=== PATIENT | male | born 1955 | race Caucasian/White ===

== ENCOUNTER 2024-11-03 07:20 | Day surgery (SDC) | payer MEDICARE, OTHER, SELFPAY ==
[2024-11-03 07:32] VITALS: BP 141/78; PULSE 77; TEMP 36.2; O2SAT 98; BMI 31.2
[2024-11-03] MEDS: LIDOCAINE 2% JELLY 10 ML UR (08:09)
[2024-11-03 08:11] VITALS: BP 143/75; PULSE 76; O2SAT 98
[2024-11-03 08:12] VITALS: BP 142/74; PULSE 74; O2SAT 97
--- NOTE | 2024-11-03 08:25 | PM.URSON ---
Urology Surgery Operative Note Operative Note Procedure Date: 11/03/24 Time Out Performed: yes Pre-op Diagnosis: Urinary frequency and urgency Post-op Diagnosis: same as pre-op Procedures performed: 1. Urethral dilation from 18 [place] to 26 [place] #2. Cystoscopy. 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 Specimens: None Drains: None Indications for Procedures: This gentleman has a history of prostate cancer for which he had a radical prostatectomy done several years ago. He has been experiencing urinary frequency and urgency. He now presents for cystoscopy. He has signed an informed consent after risks were explained. Detailed description of Procedure: The patient was kept on the guraustin bed and brought into the endoscopy suite. He was in the supine position. Timeout was done by all parties in the room. Genitalia were sterilely prepped and draped in the usual fashion. 2% lidocaine gel was passed per urethra. I started by attempting to pass a flexible cystoscope per urethra but was unable due to meatal stenosis. After obtaining verbal consent I then used Rayne sounds and dilated him from 18 [place] up to 26 [place]. I then could easily pass the flexible scope per urethra. The rest of the urethra was entirely normal. The anastomotic area was open. There was no prostate. Careful panendoscopy in the bladder revealed no evidence of any tumors concerning for cancer. There was moderate trabeculation. There were cystitis cystica lesions on the base of the bladder. The scope was retroflexed and no new findings were noted. The scope was then removed. He was then discharged to home. Plan: He will take doxycycline 100 mg daily for 2 months. If his symptoms persist after 3 months he will call our office.
== END 2024-11-03 08:37 | disposition home or self-care (01) ==
LOC: SURGOUT 07:25
PROVIDERS: Visit Provider Urology
PROC: (CPT 52281; principal; 2024-11-03 08:00)
DX: N35.911 Unspecified urethral stricture, male, meatal (principal); C61 Malignant neoplasm of prostate; R32 Unspecified urinary incontinence; I25.10 Atherosclerotic heart disease of native coronary artery without angina pectoris; I10 Essential (primary) hypertension; E03.9 Hypothyroidism, unspecified; E11.9 Type 2 diabetes mellitus without complications; I25.2 Old myocardial infarction; R35.0 Frequency of micturition; R39.15 Urgency of urination; Z90.79 Acquired absence of other genital organ(s); N30.80 Other cystitis without hematuria; Z79.84 Long term (current) use of oral hypoglycemic drugs
CPT/HCPCS: 52281

== ENCOUNTER 2025-04-08 09:02 | Emergency (ER) | payer MEDICARE, OTHER, SELFPAY ==
[2025-04-08 09:09] VITALS: BP 140/87; PULSE 82; TEMP 36.8; O2SAT 97; BMI 29.0
--- OUTSIDE RECORDS SUMMARY | 2025-04-08 09:24 | XMS_ITS | CCD ---
Author Organization [facility] [place] [facility] Care Team Providers Care Fagoter Name Role Phone JEFFRY BACON Unavailable Unavailable ROBYN BRAGG Unavailable Unavailable NIRALI BACONZA Sunday Referring Unavailable ROBYN BRAGG Primary Care Unavailable JEFFRY BACON Admitting Unavailable JEFFRY BACON Attending Unavailable ROBYN BRAGG Primary Care Unavailable Robyn Bragg Primary Care Provider [phone] Yemi ARIAS, Robyn Bahena Primary Care Provider [phone] Yemi ARIAS, Robyn Bahena Primary Care Provider ROBYN BRAGG Primary Care Unavailable LEVI EPREA Admitting Unavailable ROBYN BRAGG Attending Unavailable Shaggy Irene Attending Robyn Gardner Primary Care Unavailable Unavailable Primary Care Provider Unavailkaye Bragg MD, Robyn Primary Care Provider [phone] ANNEMARIE GUERRA Referring Unavailable TEMO, RILEY Attending Unavailable TEMO, RILEY Admitting Unavailable TEMO, RILEY Attending Unavailable TEMO, RILEY Attending Unavailable TEMO, RILEY Admitting Unavailable ROBYN BRAGG Primary Care Physician [phone] Delroy HOLDER Admitting Unavailable Delroy HOLDER R Attending Unavailable Delroy HOLDER R Attending Unavailable HOLDERDelroy R Attending Unavailable ROBYN BRAGG Referring Unavailable Delroy HOLDER Attending Unavailable HOLDERDelroy R Attending Unavailable ELVIS NEAL Attending Unavailable HOLDERDelroy R Attending Unavailable HOLDERDelroy R Attending Unavailable HOLDERDelroy R Referring Unavailable Allergies Allergy Classification Reported Allergen(s) Allergy Type Date of Onset Reaction(s) Facility (12 sources) Seasonal allergy; Translations: [Seasonal] Propensity to adverse reactions to substance 8 Other (See Comments), Watery eye (finding), Nasal congestion (finding) [facility] [place], [place] (1 source) No Known Medication Allergies; Translations: [No Known Medication Allergies] Propensity to adverse reactions to drug (disorder) [facility] Repository Medications Current Medications Medication Drug Class(es) Dates Sig (Normalized) Sig (Original) amLODIPine 2.5 mg oral tablet (8 sources) Dihydropyridine Calcium Channel Tai Start: 06-30-2024 amLODIPine 2.5 mg Tab = 1 tab(s), Oral, Supper, Refills(s) 0 Start Date: 06/30/24 Status: Ordered Repeat number: 1 Start: 08-28-2022 amLODIPine (NO RVASC) tablet 5 mg Start: 03-11-2022 take 1 tablet by ashly th in the morning amLODIPine (NORVASC) 5 MG tablet Take 1 tablet by mouth in the morning. 90 tablet 3 03/11/2022 Active Start: 12-24-2020 take 1 tablet by ashly th once daily amLODIPine (NORVASC) 5 MG tablet Take 1 tablet by mouth daily 90 tablet 3 12/24/2020 Active aspirin 81 mg delayed release oral tablet (9 sources) Platelet Aggregation Inhibitor, Nonsteroidal Anti-inflammatory Drug Start: 06-30-2024 take 1 tablet by mouth once daily at bedtime aspirin 81 mg Oral EC Tab = 1 tab(s), Oral, Once a day (at bedtime), Refills(s) 0 Start Date: 06/30/24 Status: Ordered Repeat number: 1 Start: 08-27-2022 aspirin EC tab let 81 mg take 1 tablet by mouth at bedtim e aspirin 81 MG tablet Take 81 mg by mouth at bedtime LAST DOSE 01/20/2018 0 Active aspirin/placebo, M-1657, 81 mg tablet (1 source) take 1 tablet by mouth once daily aspirin/placebo, M-1657, 81 mg tablet Take 1 tablet by mouth Every night. 0 Active atorvastatin 20 mg oral tablet (11 sources) HMG-CoA Reductase Inhibitor Start: 06-30-20 take 1 tablet by mouth once daily atorvastatin 20 mg Tab = 1 tab(s), Oral, Daily, Refills(s) 0 Start Date: 06/30/24 Status: Ordered Repeat number: 1 Start: 03-25-2020 atorvastatin ( LIPITOR) tablet 20 mg cephalexin 500 mg oral capsule (2 sources) Cephalosporin Antibacterial Start: 10-06-2024 End: 10-13-2024 take 1 capsule by mouth every twelve hours Keflex 500 mg Cap 500 mg = 1 cap(s), Oral, q12hr, X 7 day(s), # 14 cap(s), Refills(s) 0, [id number], cm, 10/06/24 10:32:00 EST, Height/Length Dosing, 97.7, kg, 10/06/24 10:32:00 EST, Weight Dosing Start Date: 10/06/24 Stop Date: 10/13/24 Status: Ordered fosfomycin 3000 mg powder for oral solution (1 source) Start: 10-08-2024 fosfomycin 3 g oral granule for reconstitution 3 gm = 1 packet(s), Oral, Once, Dissolve in water before taking, # 1 packet(s), Refills(s) 0, [id number] 180, cm, 10/06/24 10:32:00 EST, Height/Length Dosing, 97.7, kg, 10/06/24 10:32:00 EST, Weight Dosing Start Date: 10/08/24 Status: Ordered hydroCHLOROthiazide 12.5 mg / losartan potassium 100 mg oral tablet (11 sources) Thiazide Diuretic, Angiotensin 2 Receptor Tai Start: 06-30-2024 take 1.5 tablets by mouth once daily hydrochlorothiazid e-losartan 12.5 mg-100 mg oral tablet 1.5 tab(s), Oral, Daily, Refill(s) 0 Start Date: 06/30/24 Status: Ordered Repeat number: 1 Start: 08-27-2022 losartan-hydro CHLOROthiazide (HYZAAR) 100-12.5 MG per tablet 1 tablet Start: 06-19-2019 take 1 tablet by ashly once daily losartan-hydroCHLOROthiazide (HYZAAR) 100-12.5 MG per tablet Take 1 tablet by mouth daily 90 tablet 3 07/11/2022 Active levothyroxine sodium 0.1 mg oral tablet (11 sources) l-Thyroxine Start: 06-30-2024 take 1 tablet by mouth once daily levothyroxine 100 mcg (0.1 mg) Tab = 1 tab(s), Oral, Daily, Refills(s) 0 Start Date: 06/30/24 Status: Ordered Repeat number: 1 Start: 12-31-2019 take 50 ug by mouth once daily 50 mcg, Oral, DAILY, First dose on 08/27/22 at 0700, Until Discontinued Tube feeding (TF) interaction, obtain physician order to manage, recommend holding TF for 30 minutes before and after dose. metFORMIN hydrochloride 500 mg oral tablet (11 sources) Biguanide Start: 06-30-2024 take 1 tablet by mouth once daily metformin 500 mg ER Tab = 1 tab(s), Oral, Daily, Refills(s) 0 Start Date: 06/30/24 Status: Ordered Repeat number: 1 Start: 04-20-2023 take 1 tablet by ashly th every twenty-four hours metFORMIN-XR 500 MG Tab SR 24 HR Take 1 tablet by mouth. 0 04/20/2023 Active Start: 04-19-2022 take 500 mg by mouth once daily at breakfast 500 mg, Oral, DAILY WITH BREAKFAST, First dose on 08/27/22 at 0800, Until Discontinued Do not crush or break. Start: 04-27-2020 take 1 tablet by ashly th once daily at breakfast metFORMIN (GLUCOPHAGE-XR) 500 MG extended release tablet Take 1 tablet by mouth daily (with breakfast) 90 tablet 3 04/27/2020 Active 24 hr mirabegron 50 mg extended release oral tablet (1 source) beta3-Adrenergic Agonist Start: 06-30-2024 take 1 tablet by mouth once daily mirabegron 50 mg oral tablet, extended release 50 mg = 1 tab(s), Oral, Daily, # 30 tab(s), Refills(s) 11, Pharmacy: [id number], 180, cm, 06/30/24 13:43:00 EST, Height/Length Dosing, 97.7, kg, 06/30/24 13:43:00 EST, Weight Dosing Start Date: 06/30/24 Status: Ordered ondansetron (ZOFRAN-ODT) disintegrating tablet 4 mg (1 source) Start: 08-27-2022 ondansetron (ZOFRAN-ODT) disintegrating tablet 4 mg 24 hr oxybutynin chloride 10 mg extended release oral tablet (2 sources) Cholinergic Muscarinic Antagonist Start: 07-19-2020 take 1 tablet by mouth once daily oxybutynin (DITROPAN-XL) 10 MG extended release tablet Take 1 tablet by mouth daily 90 tablet 2 07/19/2020 Active Start: 03-29-2020 take 1 tablet by ashly th once daily oxybutynin (DITROPAN XL) 10 MG extended release tablet Take 1 tablet by mouth daily 30 tablet 3 03/29/2020 Active sodium fluoride 0.011 mg/mg toothpaste (1 source) Start: 04-24-2022 SF 5000 PLUS 1 .1 % CREA USE DIRECTED 0 04/24/2022 Active solifenacin succinate 10 mg oral tablet (4 sources) Cholinergic Muscarinic Antagonist Start: 10-06-2024 take 1 tablet by mouth once daily Vesicare 10 mg Tab 10 mg = 1 tab(s), Oral, Daily, # 30 tab(s), Refills(s) 11, Pharmacy: [facility]/pharmacy #[id number], 180, cm, 10/06/24 10:32:00 EST, Height/Length Dosing, 97.7, kg, 10/06/24 10:32:00 EST, Weight Dosing Start Date: 10/06/24 Status: Ordered Quantity: 30.0 Unit: tab(s) Repeat number: 12 Indications: Incontinence without sensory awareness; ticagrelor 60 mg oral tablet (11 sources) Start: 06-30-2024 take 1 tablet by mouth twice daily ticagrelor 60 mg oral tablet = 1 tab(s), Oral, BID, Refills(s) 0 Start Date: 06/30/24 Status: Ordered Repeat number: 1 Start: 02-26-2023 take 1 tablet by ashly th twice daily Ticagrelor 60 MG tablet Take 1 tablet by mouth 2 times daily. 0 02/26/2023 Active Start: 06-01-2022 take 60 mg by mouth twice aashish y 60 mg, Oral, 2 TIMES DAILY, First dose on 08/27/22 at 0900, Until Discontinued ANITIPLATELET! Patient supply Start: 01-12-2021 take 1 tablet by ashly th twice daily BRILINTA 60 MG TABS tablet Take 1 tablet by mouth twice daily 180 tablet 3 01/12/2021 Active Start: 01-19-2020 take 1 tablet by ashly th twice daily ticagrelor (BRILINTA) 60 MG TABS tablet Take 1 tablet by mouth 2 times daily 180 tablet 3 01/19/2020 Active Completed/Discontinued Medications Medication Drug Class(es) Dates Sig (Normalized) Sig (Original) acetaminophen 500 mg oral tablet (3 sources) Start: 07-23-2023 End: 07-23-2023 take 500-1000 mg by mouth every six hours as needed 500-1,000 mg, Oral, EVERY 6 HOURS NEEDED, Starting on Sun07/23/23 at 0730, Until Sun07/23/23 at 1012, Pain, Post-op/Post-Proc Start: 07-16-2023 End: 07-16-2023 take 500-1000 mg by mouth every six hours as needed 500-1,000 mg, Oral, EVERY 6 HOURS NEEDED, Starting on Sun07/16/23 at 0830, Until Sun07/16/23 at 1548, Pain, Post-op/Post-Proc Start: 08-27-2022 acetaminophen (TYLENOL) tablet 650 mg apraclonidine 10 mg/ml ophthalmic solution (1 source) alpha-Adrenergic Agonist Start: 07-16-2023 End: 07-16-2023 take 1 dose into the eye(s) once 1 drop, Left Eye, ONCE, 1 dose, On Sun07/16/23 at 0830 Administer post-Procedure, while in operating room Intra-op/Intra-Proc 20 ml bupivacaine hydrochloride 7.5 mg/ml injection (2 sources) Amide Local Anesthetic Start: 07-23-2023 End: 07-23-2023 1 drop, Right Eye, EVERY 5 MINUTES, 3 doses, First dose on Sun07/23/23 at 0630, Last dose on Sun07/23/23 at 0640 Within 15 minutes of surgery Pre-op/Pre-Proc Start: 07-16-2023 End: 07-16-2023 1 drop, Left Eye, EVERY 5 NC NUTES, 3 doses, First dose on Sun07/16/23 at 0800, Last dose on Sun07/16/23 at 0810 Within 15 minutes of surgery Pre-op/Pre-Proc cefazolin intraocular/intracameral 1 mg/0.1 mL (1 source) Start: 07-16-2023 End: 07-16-2023 take 0.1 mL into the eye(s) once 0.1 mL, Left Eye Intraocular, ONCE, 1 dose, On Sun07/16/23 at 0830, Intra-op/Intra-Proc ciprofloxacin 500 mg oral tablet (3 sources) Quinolone Antimicrobial Start: 10-06-2024 take 1 tablet by mouth once daily Cipro 500 mg Tab 500 mg = 1 tab(s), Oral, Daily, take one tab day before procedure and one tab after procedure, # 2 tab(s), Refills(s) 0, Pharmacy: [facility]/pharmacy #[id number], 180, cm, 10/06/24 10:32:00 EST, Height/Length Dosing, 97.7, kg, 10/06/24 10:32:00 EST, Weight Dosing Start Date: 10/06/24 Status: Ordered 0.4 ml enoxaparin sodium 100 mg/ml prefilled syringe (1 source) Low Molecular Weight Heparin Start: 08-27-2022 inject 40 mg by subcutaneous injection once daily 40 mg, SubCUTAneous, DAILY, First dose on Sun08/27/22 at 0900, Until Discontinued Indication of Use: Prophylaxis-DVT/PE famotidine 20 mg oral tablet (1 source) Histamine-2 Receptor Antagonist Start: 08-27-2022 take 20 mg by mouth twice daily 20 mg, Oral, 2 TIMES DAILY, First dose on Sun08/27/22 at 0900, Until Discontinued ketorolac tromethamine 5 mg/ml ophthalmic solution (1 source) Nonsteroidal Anti-inflammato ry Drug, Cyclooxygenase Inhibitor Start: 07-16-2023 End: 07-16-2023 take 1 dose into the eye(s) once daily 1 drop, Left Eye, ONCE, 1 dose, On Sun07/16/23 at 0830 Administer post-Procedure, while in operating room Instructio ns for home use: ONE drop in operative eye, two times a day while awake Intra-op/Intra-Proc 10 ml lidocaine hydrochloride 10 mg/ml injection (1 source) Antiarrhythmic, Amide Local Anesthetic Start: 07-16-2023 End: 07-16-2023 take 1 dose into the eye(s) once 1 mL, Left Eye Intracameral, ONCE, 1 dose, On Sun07/16/23 at 0830, Intra-op/Intra-Proc ofloxacin 3 mg/ml ophthalmic solution (2 sources) Quinolone Antimicrobial Start: 07-23-2023 End: 07-23-2023 take 1 dose into the eye(s) once daily 1 drop, Right Eye, ONCE, 1 dose, On 07/23/23 at 0730 Administer post-Procedure, while in operating room. Instructi ons for home use: ONE drop in operative eye, four times a day while awake. Intra-op/Intra-Proc Start: 07-16-2023 End: 07-16-2023 take 1 dose into the eye(s) once daily 1 drop, Left Eye, ONCE, 1 dose, On 07/16/23 at 0830 Administer post-Procedure, while in operating room. Instructions for home use: ONE drop in operative eye, four times a day while awake. Intra-op/Intra-Proc polyethylene glycol 3350 [id number] mg powder for oral solution (1 source) Osmotic Laxative Start: 08-27-2022 17 g, Oral, D AILY PRN, Starting on 08/27/22 at 0306, Until Discontinued, Constipation First line therapy for constipation prednisoLONE acetate 10 mg/ml ophthalmic suspension (1 source) Corticosteroid Start: 07-16-2023 End: 07-16-2023 take 1 dose into the eye(s) once daily 1 drop, Left Eye, ONCE, 1 dose, On 07/16/23 at 0830 Administer post-Procedure, while in operating room Instructi ons for home use: ONE drop in operative eye, four times a day while awake Intra-op/Intra-Proc promethazine hydrochloride 12.5 mg oral tablet (4 sources) Phenothiazine Start: 07-23-2023 End: 07-23-2023 take 1 tablet by mouth every six hours as needed 25 mg, Oral, EVERY 6 HOURS NEEDED, Starting on 07/23/23 at 0730, Until Sun07/23/23 at 1012, severe nausea, Post-op/Post-Proc Start: 07-23-2023 End: 07-23-2023 take 1 tablet by mouth every six hours as needed 12.5 mg, Oral, EVERY 6 HOURS NEEDED, Starting on 07/23/23 at 0730, Until 07/23/23 at 1012, Other, mild nausea, moderate nausea, Post-op/Post-Proc Start: 07-16-2023 End: 07-16-2023 take 1 tablet by mouth every six hours as needed 25 mg, Oral, EVERY 6 HOURS NEEDED, Starting on Sun07/16/23 at 0830, Until Sun07/16/23 at 1548, severe nausea, Post-op/Post-Proc Start: 07-16-2023 End: 07-16-2023 take 1 tablet by mouth every six hours as needed 12.5 mg, Oral, EVERY 6 HOURS NEEDED, Starting on Sun07/16/23 at 0830, Until Sun07/16/23 at 1548, Other, mild nausea, moderate nausea., Post-op/Post-Proc 1000 ml sodium chloride 9 mg/ml injection (7 sources) Start: 07-23-2023 End: 07-23-2023 Intravenous, at 20 mL/hr, CONTINUOUS, Starting on Sun07/23/23 at 0630, Until Sun07/23/23 at 1012 To KVO Pre-op/Pre-Proc Start: 07-16-2023 End: 07-16-2023 Intravenous, at 20 mL/hr, CONTINUOUS, Starting on Sun07/16/23 at 0800, Until Sun07/16/23 at 1548 To KVO Pre-op/Pre-Proc Start: 08-27-2022 10 mL, IntraVE Nous, EVERY 12 HOURS SCHEDULED (2 times per day), First dose on Sun08/27/22 at 0900, Until Discontinued Start: 08-27-2022 IntraVENous, a t 75 mL/hr, CONTINUOUS, Starting on Sun08/27/22 at 0330 Start: 08-27-2022 IntraVENous, a t 5-250 mL/hr, PRN, if patient receiving piggyback infusions and maintenance fluids are not ordered OR KVO fluids to protect IV site / prevent frequent line interruptions/ long duration, Starting on Sun08/27/22 at 0306 For piggyback infusion, administer at same rate as piggyback for a total of 25 mL. Enter 25 mL into dose field and piggyback rate into rate field of order. If piggyback is infusing at a rate less than 100 mL/hr, enter 25 mL into dose field and 100 mL/hr into rate field of order. For KVO fluids, enter rate of 20 mL/hr or less into rate field of order. Start: 08-27-2022 take 10 mL intraveno usly once as needed 10 mL, IntraVENous, PRN, Starting on Sun08/27/22 at 0306, Until Discontinued, Line Care, After every IV line use Start: 08-26-2022 End: 08-27-2022 0.9 % sodium chloride bolus tropicamide-1% cyclopentolate-1% phenylephrine-2.5% ketorolac 0.4% proparacaine 0.1% topical ophthalmic soln 0.1 mL (2 sources) Start: 07-23-2023 End: 07-23-2023 take 0.1 mL into the eye(s) once 0.1 mL (2 drop), Right Eye, ONCE, 1 dose, On Sun07/23/23 at 0630 Within one hour of surgery. Pre-op/Pre-Proc Start: 07-16-2023 End: 07-16-2023 take 0.1 mL into the eye(s) once 0.1 mL (2 drop), Left Eye, ONCE, 1 dose, On Sun07/16/23 at 0800 Within one hour of surgery. Pre-op/Pre-Proc Problems Active Problems Problem Classification Problem Date Documented Date Episodic/Chronic Acute myocardial infarction (5 sources) Myocardial infarction 06-30-2024 Chronic Cancer of prostate (13 sources) Malignant neoplasm of prostate; Translations: [Malignant tumor of prostate] Onset: 09-26-2017 01-29-2018 Chronic Cardiac dysrhythmias (1 source) Palpitations; Translations: [Palpitations] Episodic Cataract (6 sources) Age-related nuclear cataract of right eye; Translations: [Age-related nuclear cataract, right eye] Onset: 07-16-2023 07-03-2023 Chronic Coronary atherosclerosis and other heart disease (8 sources) Coronary arteriosclerosis; Translations: [Atherosclerotic heart disease of [place] coronary artery without angina pectoris] Onset: 02-18-2018 02-18-2018 Chronic Diabetes mellitus without complication (8 sources) Type 2 diabetes mellitus without complication; Translations: [Type 2 diabetes mellitus without complications] Onset: 05-10-2022 05-10-2022 Chronic Disorders of lipid metabolism (3 sources) Mixed hyperlipidemia; Translations: [Mixed hyperlipidemia] Onset: 01-01-2018 01-01-2018 Chronic Essential hypertension (3 sources) Essential hypertension; Translations: [Essential (primary) hypertension] Onset: 11-13-2016 11-13-2016 Chronic Genitourinary symptoms and ill-defined conditions (11 sources) Genuine stress incontinence; Translations: [Stress incontinence (female) (male)] Onset: 09-29-2018 09-29-2018 Chronic Genitourinary symptoms and ill-defined conditions (1 source) Nocturia; Translations: [Nocturia] Episodic Other diseases of bladder and urethra (1 source) Male urethral stricture; Translations: [Unspecified urethral stricture, male, unspecified site] Onset: 03-30-2025 Episodic Other diseases of bladder and urethra (1 source) Urethral stricture 03-30-2025 Episodic Other male genital disorders (2 sources) Erectile dysfunction following radical prostatectomy; Translations: [Erectile dysfunction following radical prostatectomy] Onset: 09-29-2018 09-29-2018 Chronic Other male genital disorders (1 source) Erectile dysfunction following radical prostatectomy; Translations: [Erectile dysfunction after radical prostatectomy] Onset: 09-29-2018 09-29-2018 Syncope (4 sources) Syncope and collapse; Translations: [Syncope and collapse] Onset: 08-27-2022 Episodic Thyroid disorders (4 sources) Hyperthyroidism 10-06-2024 Chronic Urinary tract infections (5 sources) Urinary tract infectious disease; Translations: [Urinary tract infection, site not specified] Onset: 10-06-2024 10-06-2024 Episodic Past or Other Problems Problem Classification Problem Date Documented Da te Episodic/Chronic Other male genital disorders (2 sources) Pain in scrotum ; Translations: [Scrotal pain] Onset: 08-31-2020 08-31-2020 Episodic Other screening for suspected conditions (not mental disorders or infectious disease) (2 sources) Raised prostate specific antigen; Translations: [Elevated prostate specific antigen [PSA]] Onset: 09-20-2017 09-20-2017 Episodic Unclassified (1 source) Patient encounter status; Translations: [Wellness examination] Onset: 06-30-2015 Resolved: 11-27-2019 11-27-2019 Results Test Name Value Interpretation Reference Range Facility Urology Office/Clinic Noteon 03-30-2025 Urology Office/Clinic Note Urology Office/Clinic Note Chief Complaint F/u to cysto UD HPI Staff 5 month f/u to cysto UD done 11/03/24. Dx: hx of prostate CA, urinary incontinence, and ED. Vesicare 10mg qd. started at last OV IPSS score today is 16. Frequency and weak stream more than half the time. Urgency about half the time. Nocturia x3. Straining and incomplete emptying less than 1 in 5x. Denies any visible blood in urine or pain of any kind. PVR today is 30ml. History of Present Illness Tests reviewed: reviewed UA, op note I have reviewed the previous health record information and history for this patient from Dr. Holder. I have reviewed and verified the staff HPI to be accurate for this encounter. Review of Systems PHQ Score Initial Depression Screen Score: 0 SCORE ROS - Provider Constitutional: denies weight loss, denies hot flashes. Eyes: denies eye problems. Gastrointestinal: denies nausea, denies vomiting. Cardiovascular: denies chest pain or angina. Integumentary: no dryness Musculoskeletal: denies musculoskeletal symptoms. ENMT: denies otolaryngeal symptoms. Respiratory: no shortness of breath. Heme/Lymph: denies easy bleeding tendency, denies easy bruising tendency. Psychiatric: no confusion, no anxiety. Genitourinary: See HPI. Physical Exam Vitals & Measurements T: 37 ???C(Temporal Artery) HR: 78(Peripheral) RR: 18 BP: 128/67 HT: 71 in HT: 180 cm WT: 207.675 lb WT: 94.2 kg BMI: 29.07 General Appearance: alert, no distress, well nourished, well developed male. Assessment/Plan 1. Prostate cancer (C61: Malignant neoplasm of prostate) PSA: 06/30/15 - 3.25 06/06/16 - 4.47 06/27/17 - 5.02 12/18/17 - 6.320 03/08/18 - 0.020 06/11/18 - <0.014 12/07/18 - <0.01 03/18/19 - <0.01 09/23/19 - <0.01 03/25/20 - <0.01 05/07/21 - <0.01 11/07/21 - <0.01 11/08/22 - <0.02 11/12/23 - <0.02 09/20/17 - Path showed Caio 7 (3+4), GG2 involving 6% of one core and Caio 6 (3+3), GG1 involving 1% of one core. No perineural invasion. No lymph invasion. No extraprostatic extension. S/p RALP 01/29/[address] Jeffry Bacon at [facility]. Path ~[place] 7 (3+4) GG2. Tumor is organ confined, involves <50% of left lobe. Margins free of tumor. Benign lymph nodes, neg for metastatic carcinoma. [1] Previously followed with Dr. Tarango in [place]. [2] States his PCP has been ordering PSA since he switched urologists. Has order to get this done in May. -Cont PSA monitoring w/ PCP 2. Incontinence without sensory awareness (N39.42: Incontinence without sensory awareness) S/p Cysto/UD 11/03/24 - No bladder tumors. Moderate trabeculation. 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 PVR (cc): 06/30/24 - 48 10/06/24 - 48 Tried Oxybutynin but had no sx improvement. Stopped Myrbetriq due to cost. UA neg. IPSS 16 (14). Started on Vesicare 10 mg qd at prior OV. Feels he empties. Still having leakage wo awareness only while laying in the recliner. Admits to sometimes leaking on the way to the bathroom first thing in the morning, otherwise no leakage with activities. Denies burning with urination. No gross hematuria. Discussed penile clamp and risks/benefits. Likely will have more benefit from behavioral/physical modification vs oral meds. -Trial penile clamp -Cont Vesicare 10 mg qd. Pt to call for refills. 3. Urethral meatal stenosis (N35.919: Unspecified urethral stricture, male, unspecified site) S/p Cysto/UD 11/03/24 - Dilated 18-26 Fr. Follow-up With When Contact Information GERMAN ARIAS, Delroy Del Rosario, URL [address] [facility] [place] [address] Additional Instructions: 6 mos Patient Education Urinary Incontinence Erlinda Viveros, personally scribed for Dr. Holder on 03/30/2025 14:46:36. . Documentation recorded by the scribe, Erlinda Jose, accurately reflects the services(s) I performed and decisions made by me. Authenticated by Dr. Holder on 03/30/2025 14:50:08. Problem List/Past Medical History Ongoing CAD with hypertension Diabetes Hyperthyroidism Incontinence without sensory awareness Myocardial infarction (heart attack-[place]) Prostate cancer Urethral meatal stenosis UTI (urinary tract infection) Historical No qualifying data Procedure/Surgical History Cystoscopy (11/03/2024), Placement of stent in coronary artery (01/29/2015), Prostatectomy (01/29/2015), Colonoscopy. Medications amLODIPine 2.5 mg Tab, 1 tab(s), Oral, Supper aspirin 81 mg Oral EC Tab, 1 tab(s), Oral, Once a day (at bedtime) atorvastatin 20 mg Tab, 1 tab(s), Oral, Daily hydrochlorothiazide-losa rtan 12.5 mg-100 mg oral tablet, 1.5 tab(s), Oral, Daily levothyroxine 100 mcg (0.1 mg) Tab, 1 tab(s), Oral, Daily metformin 500 mg ER Tab, 1 tab(s), Oral, Daily ticagrelor 60 mg oral tablet, 1 tab(s), Oral, BID Vesicare 10 mg Tab, 10 mg= 1 tab(s), Oral, Daily, 11 refills Allergies Seasonal (Watery eye, Nasal congestion) Social History Alcohol Never., (more content not included)... Normal [facility] Comment on above: Result Comment: Elec tronically Signed By: Delroy HOLDER MD\.br\Date and Time Signed: 03/30/25 14:50 EDT\.br\Electronically Co-Signed By: Erlinda Jose\.br\Date and Time Co-Signed: 03/30/25 14:48 EDT HEMOGLOBIN A1Con 01-07-2025 Glucose [Mass/Vol] 166 mg/dL High <126 [facility] Comment on above: Result Comment: UNLE SS OTHERWISE INDICATED, ALL TESTING PERFORMED AT: [facility] [address] [place] [id number] SIZE TESTER: CHINYERE YOUNG M.D. CLIA NUMBER [id number] CAP ACCREDITATION AUID [id number] HbA1c (Bld) [Mass fraction] 7.4 % High <5.7 [facility] Comment on above: Result Comment: Pred iabetes: 5.7% to 6.4% Diabetes: >6.4% Glycemic control for adults with diabetes: <7.0% Use with caution in patients with abnormal hemoglobin variants as the half-life of red blood cells and in vivo glycation rates are affected. MICROALBUMIN/CREATININE RATI O, RANDOM URINEon 01-07-2025 CREATININE,UR 194.5 mg/dL Normal NOT ESTAB [facility] Comment on above: Result Comment: Reference interval for random urine samples has not been established. MICROALB/CREAT RATIO 5 mG/G Normal <30 [facility] Comment on above: Result Comment: INTE RPRETATIVE GUIDE NORMAL........................ 0-29 MODERATELY INCREASED.......... 30-300 SEVERELY INCREASED............ >300 MICROALBUMIN 9.0 mg/L Normal [facility] Comment on above: Result Comment: Note: Test name is changed to Urine Albumin from Microalbumin in accordance with ADA and NFK Guidelines, and Albumin/Creatinine ratio reference interval reflects those Guidelines. Analytic methodology is unchanged. No reference interval for Random Urine Albumin is available. C Urineon 10-08-2024 Bacteria identified Cx Nom (U) Microbiology PROCEDURE: Urine Culture [R1] SOURCE: U CleanCatch BODY SITE: COLLECTED DATE/TIME: 10/06/2024 10:54 EST RECEIVED DATE/TIME: 10/06/2024 18:02 EST START DATE/TIME: 10/06/2024 18:02 EST FREE TEXT SOURCE: GERMAN ARIAS, Delroy HOLDER MD, Delroy Del Rosario FINAL REPORTS Final Report [] Verified Date/Time: 10/08/2024 09:01 EST >100,000 cfu/ml Proteus mirabilis ESBL SUSCEPTIBILITY RESULTS ___ LEGEND: S=Susceptible, N/R=Not Reported, Blank=Data not available, or drug not advisable or tested, I=Intermediate, ESBL=Extended spectrum beta-lactamase, R=Resistant, TFG=Thymidine-dependent strain, INÉS=Beta-lactamase positive, ANIBAL=mcg/m;(mg/L), S*=Predicted susceptible interp, R*=Predicted resistant interp PromirESBL Antibiotic ANIBAL Dilutn ANIBAL Interp Ampicillin >16 R* Ampicillin/ 16/8 I Sulbactam Aztreonam >16 R* Cefazolin >16 R* Cefepime >16 R* Ceftazidime <=1 R* Ceftazidime/ <=8 S Avibactam Ceftriaxone >2 R* Cefuroxime >16 R* Ciprofloxacin >2 R Ertapenem <=0.5 S Gentamicin >8 R Levofloxacin 1 I Meropenem <=1 S Nitrofurantoin >64 R Piperacillin/ <=8 S Tazobactam Tetracycline >8 R Tobramycin >8 R Trimethoprim/ >2/38 R Sulfa Performing Locations R1: This test was performed at: [facility], [address] [place] [address], [phone] , , [facility] Comment on above: Performed By: #### [id number] #### [facility] [address] [place] [address] Ambulatory Visit Summaryon 0 10-06-2024 Ambulatory Visit Summary Ambulatory Visit Summary YG GALVEZ :1955 Visit Date:10/06/2024 Ambulatory Visit Instructions Your Diagnosis Prostate cancer Incontinence without sensory awareness UTI (urinary tract infection) Your Care Team Attending Physician - Delroy HOLDER MD Primary Care Physician - YEMI ARIAS, ROBYN Sotelo This Is Your Medications List mirabegron (mirabegron 50 mg oral tablet, extended release) Contact prescribing physician if questions or concerns amlodipine (amLODIPine 2.5 mg Tab) aspirin (aspirin 81 mg Oral EC Tab) atorvastatin (atorvastatin 20 mg Tab) hydrochlorothiazide-losa rtan (hydrochlorothiazide-los teri 12.5 mg-100 mg oral tablet) levothyroxine (levothyroxine 100 mcg (0.1 mg) Tab) metformin (metformin 500 mg ER Tab) ticagrelor (ticagrelor 60 mg oral tablet) Procedures Performed Placement of stent in coronary artery (01/29/2015), Prostatectomy (01/29/2015), Colonoscopy. Discharge Vitals Temperature (Oral) 37 ???C Heart Rate (Peripheral) 80 Blood Pressure 142/78 Height 180 cm Height 71 in Weight 97.7 kg Weight 215.391 lb BMI 30.15 What to do next You Need to Schedule the Following Appointments Follow Up with GERMAN ARIAS, Delroy Del Rosario, URL When: Where: [facility] [address] , [place] [address]- [phone] Medications What How Much When Instructions Unchanged mirabegron (mirabegron 50 mg oral tablet, extended release) 1 Tablets By Mouth Every day Unchanged amlodipine (amLODIPine 2.5 mg Tab) 1 Tablets By Mouth Once daily with supper Contact prescribing physician if questions or concerns Unchanged aspirin (aspirin 81 mg Oral EC Tab) 1 Tablets By Mouth Once a day (at bedtime) Contact prescribing physician if questions or concerns Unchanged atorvastatin (atorvastatin 20 mg Tab) 1 Tablets By Mouth Every day Contact prescribing physician if questions or concerns Unchanged hydrochlorothiazide-losa rtan (hydrochlorothiazide-los teri 12.5 mg-100 mg oral tablet) 1.5 Tablets By Mouth Every day Contact prescribing physician if questions or concerns Unchanged levothyroxine (levothyroxine 100 mcg (0.1 mg) Tab) 1 Tablets By Mouth Every day Contact prescribing physician if questions or concerns Unchanged metformin (metformin 500 mg ER Tab) 1 Tablets By Mouth Every day Contact prescribing physician if questions or concerns Unchanged ticagrelor (ticagrelor 60 mg oral tablet) 1 Tablets By Mouth 2 times a day Contact prescribing physician if questions or concerns Allergies Seasonal (Watery eye, Nasal congestion) Problems Ongoing - Any problem that you are currently receiving treatment for. Incontinence without sensory awareness Myocardial infarction (heart attack-NC) Prostate cancer UTI (urinary tract infection) Patient Survey You may receive a survey via text or e-mail asking about your office visit. Please share your experience with us by completing your survey. We appreciate your feedback and thank you for choosing us for your care. Education Materials Urinary Tract Infection, Adult A urinary tract infection (UTI) is an infection of any part of the urinary tract. The urinary tract includes the kidneys, ureters, bladder, and urethra. These organs make, store, and get rid of urine in the body. An upper UTI affects the ureters and kidneys. A lower UTI affects the bladder and urethra. What are the causes? Most urinary tract infections are caused by bacteria in your genital area around your urethra, where urine leaves your body. These bacteria grow and cause inflammation of your urinary tract. What increases the risk? You are more likely to develop this condition if: ??? You have a urinary catheter that stays in place. ??? You are not able to control when you urinate or have a bowel movement (incontinence). ??? You are female and you: ? Use a spermicide or diaphragm for control. ? Have low estrogen levels. ? Are . ??? You have certain genes that increase your risk. ??? You are sexually active. ??? You take antibiotic medicines. ??? You have a condition that causes your flow of urine to slow down, such as: ? An enlarged prostate, if you are male. ? Blockage in your urethra. ? A kidney stone. ? A nerve condition that affects your bladder control (neurogenic bladder). ? Not getting enough to drink, or not urinating often. ??? You have certain medical conditions, such as: ? Diabetes. ? A weak disease-fighting system (immunesystem). ? Sickle cell disease. ? Gout. ? Spinal cord injury. What are the signs or symptoms? Symptoms of this condition include: ??? Needing to urinate right away (urgency). ??? Frequent urination. This may include small amounts of urine each time you urinate. ??? Pain or burning with urination. ??? Blood in the urine. ??? Urine that smells bad or unusual. ??? Trouble uri (more content not included)... Normal [facility] Urology Office/Clinic Noteon 10-06-2024 Urology Office/Clinic Note Urology Office/Clinic Note Chief Complaint 3 mth f/u HPI Staff 68 yo male here for 3 mth f/u on new med Dx: hx of prostate CA, urinary incontinence, and ED. Initial path - Caio 7 (3+4) GG2. S/p RALP 01/29/[address] Jeffry Bacon. Final path ~Caio 7 (3+4) GG2. Tumor is organ confined. Margins free of tumor. Benign lymph nodes, neg for metastatic carcinoma. pt states the Myrbetriq is too expensive and would like to discuss other options. PSA: 06/30/15 - 3.25 06/06/16 - 4.47 06/27/17 - 5.02 12/18/17 - 6.320 03/08/18 - 0.020 06/11/18 - <0.014 12/07/18 - <0.01 03/18/19 - <0.01 09/23/19 - <0.01 03/25/20 - <0.01 05/07/21 - <0.01 11/07/21 - <0.01 11/08/22 - <0.02 11/12/23 - <0.02 Dysuria: _no Incomplete bladder emptying: _no Hematuria: _no Frequency: _any where from 15 min- 1-2 hrs Urgency: _yes Nocturia: _3x Stream: _normal Leaking: _yes, always Post void dripping: _no Wearing pads/ Depends: _pads Urge incontinence: _yes Stress incontinence: _yes Incontinence without Sensory Awareness: _yes Abdominal pain: _no, pressure Flank pain: _no Sexual complaints: _ History of Present Illness Tests reviewed: reviewed UA, PVR I have reviewed the previous health record information and history for this patient from Dr. Holder. I have reviewed and verified the staff HPI to be accurate for this encounter. Review of Systems PHQ Score Initial Depression Screen Score: 0 SCORE ROS - Provider Constitutional: denies weight loss, denies hot flashes. Eyes: denies eye problems. Gastrointestinal: denies nausea, denies vomiting. Cardiovascular: denies chest pain or angina. Integumentary: no dryness Musculoskeletal: denies musculoskeletal symptoms. ENMT: denies otolaryngeal symptoms. Respiratory: no shortness of breath. Heme/Lymph: denies easy bleeding tendency, denies easy bruising tendency. Psychiatric: no confusion, no anxiety. Genitourinary: See HPI. Physical Exam Vitals & Measurements T: 37 ???C(Oral) HR: 80(Peripheral) BP: 142/78 HT: 71 in HT: 180 cm WT: 97.7 kg WT: 215.391 lb BMI: 30.15 General Appearance: alert, no distress, well nourished, well developed male. Assessment/Plan TORO 5. 1. Prostate cancer (C61: Malignant neoplasm of prostate) PSA: 06/30/15 - 3.25 06/06/16 - 4.47 06/27/17 - 5.02 12/18/17 - 6.320 03/08/18 - 0.020 06/11/18 - <0.014 12/07/18 - <0.01 03/18/19 - <0.01 09/23/19 - <0.01 03/25/20 - <0.01 05/07/21 - <0.01 11/07/21 - <0.01 11/08/22 - <0.02 11/12/23 - <0.02 09/20/17 - Path showed Caio 7 (3+4), GG2 involving 6% of one core and Caio 6 (3+3), GG1 involving 1% of one core. No perineural invasion. No lymph invasion. No extraprostatic extension. S/p RALP 01/29/[address] Jeffry Bacon at [facility]. Path ~Caio 7 (3+4) GG2. Tumor is organ confined, involves <50% of left lobe. Margins free of tumor. Benign lymph nodes, neg for metastatic carcinoma. [1] Previously followed with Dr. Tarango in [place]. -Cont PSA monitoring 2. Incontinence without sensory awareness (N39.42: Incontinence without sensory awareness) Thinks he tried Oxybutynin but had no sx improvement. PVR (cc): 06/30/24 - 48 10/06/24 - 48 IPSS 14 (10-11). Started on Myrbetriq ER 50mg qd at prior OV due to soaking 2 thick pads per day. Shares he had minimal sx improvement and med is expensive. Soaked through 4 pads on Sunday. Only leaks when sitting in his recliner vs when up moving around. Reports he voids ~half a cup. Discussed risks/benefits cystoscopy to further evaluate possible etiology of sxs. Also discussed alternative bladder meds. Gemtesa is not covered by pt's insurance. Discussed anticholinergics and possible SEs. Pt wishes to try this. -D/c Myrbetriq -Start Vesicare 10mg qd. Rx sent to [facility] [place]. -Will schedule cystoscopy. The risks and benefits for cystoscopy have been discussed. The risks include bleeding, infection, and irritation of the bladder and urinary channel, among others. The patient, after being informed of procedural details and after questions have been answered, wishes to proceed. Full informed consent has been obtained. Will order Local anesthesia. 3. UTI (urinary tract infection) (N39.0: Urinary tract infection, site not specified) UA today shows moderate leuks. PVR is low. Denies odorous or cloudy urine. Has mild pain/discomfort while lying in bed. Advised pt he appears to be infected and will need treated. -Urine sample to be sent for culture. Will call pt with results. -Take Keflex 500mg bid x7 days. Rx sent to [facility] [place]. Follow-up With When Contact Information Delroy HOLDER MD, URL [facility] [address] [place] [address] [phone] Additional Instructions: sched cysto Patient Education Urinary Tract Infection, Adult Cystoscopy I, Erlinda Jose, personally scribed for Dr. Holder on 10/06/2024 11:06:48. . Documentation re (more content not included)... Normal [facility] Comment on above: Result Comment: Elec tronically Signed By: Delroy HOLDER MD\.br\Date and Time Signed: 10/06/24 11:09 EST\.br\Electronically Co-Signed By: Erlinda Jose\Date and Time Co-Signed: 10/06/24 11:07 EST B12 AND FOLIC ACIDon 025 Cobalamin (Vitamin B12) [Mass/Vol] 667 pg/mL Normal 232-1245 [facility] Comment on above: Result Comment: It h as been reported that between 5 and 10% of patients with values between 200 and 400 pg/ml may experience neuropsychiatric and hematologic abnormalities due to occult B12 deficiency. Less than 1% of patients with values above 400 pg/ml will have symptoms. FOLIC ACID, SERUM 8.8 ng/mL Normal >5.4 [facility] BASIC METABOLIC PANEL WITH G FRon 09-30-2024 Anion gap [Moles/Vol] 17 mmol/L High 7-16 [facility] Calcium [Mass/Vol] 10.1 mg/dL Normal 8.6-10.5 [facility] Chloride [Moles/Vol] 102 mmol/L Normal 96-107 [facility] CO2 [Moles/Vol] 22 mmol/L Normal 18-32 [facility] Creatinine [Mass/Vol] 1.20 mg/dL Normal 0.67-1.30 [facility] GFR/1.73 sq M.predicted among non-blacks MDRD (S/P/Bld) [Vol rate/Area] 65 mL/min/{1.73_m2} Normal >59 [facility] Glucose [Mass/Vol] 192 mg/dL High 65-125 [facility] Potassium [Moles/Vol] 4.0 mmol/L Normal 3.5-5.4 [facility] Sodium [Moles/Vol] 141 mmol/L Normal 135-148 [facility] Urea nitrogen [Mass/Vol] 21 mg/dL Normal 8-23 [facility] CBC NO DIFFon 09-30-2024 Erythrocyte distribution width (RBC) [Ratio] 12.5 % Normal 11.2-14.8 [facility] Hematocrit (Bld) [Volume fraction] 45.7 % Normal 39-52 [facility] Hemoglobin (Bld) [Mass/Vol] 15.5 g/dL Normal 13.0-18.0 [facility] MCH (RBC) [Entitic mass] 31.3 pg Normal 26.0-32.0 [facility] MCHC (RBC) [Mass/Vol] 33.9 g/dL Normal 32.0-35.0 [facility] MCV (RBC) [Entitic vol] 92 fL Normal 75-100 [facility] PLATELET 259 THOUS/CMM Normal 140-440 [facility] Comment on above: Result Comment: UNLE SS OTHERWISE INDICATED, ALL TESTING PERFORMED AT: [facility]. [address] [place] [address] SIZE TESTER: CHINYERE YOUNG M.D. CLIA NUMBER [id number] CAP ACCREDITATION AUID [id number] RBC 4.95 MILL/CMM Normal 4.40-6.10 [facility] WBC 7.2 THDS/CMM Normal 3.6-11.0 [facility] TSHon 08-06-2024 TSH 1.98 uIU/mL Normal 0.270-4.200 [facility] Comment on above: Result Comment: The [place] [employer] (FRANCESCA) recommends the following reference ranges for TSH levels during : First trimester: 0.1 to 2.5 mIU/L Second trimester: 0.2 to 3.0 mIU/L Third trimester: 0.3 to 3.0 mIU/L UNLESS OTHERWISE INDICATED, ALL TESTING PERFORMED AT: [facility]. [address] [place] [address] SIZE TESTER: CHINYERE YOUNG M.D. CLIA NUMBER [id number] CAP ACCREDITATION AUID [id number] HEMOGLOBIN A1Con 06-10-2024 Glucose [Mass/Vol] 143 mg/dL High <126 [email or web address] Comment on above: Result Comment: UNLE SS OTHERWISE INDICATED, ALL TESTING PERFORMED AT: [facility]. [address] [place] [address] SIZE TESTER: CHINYERE YOUNG M.D. CLIA NUMBER [id number] CAP ACCREDITATION AUID [id number] Changes in testing location may be associated with reference range changes for a number of analytes. Please review reference intervals carefully. HbA1c (Bld) [Mass fraction] 6.6 % High <5.7 [facility] Comment on above: Result Comment: Pred iabetes: 5.7% to 6.4% Diabetes: >6.4% Glycemic control for adults with diabetes: <7.0% Use with caution in patients with abnormal hemoglobin variants as the half-life of red blood cells and in vivo glycation rates are affected. LIPID PANEL (INCLUDES CALCUL ATED LDL)on 06-10-2024 LDL-CHOL, CALCULATED 93 mg/dL Normal <130 [facility] Comment on above: Result Comment: ADUL T LDL CHOLESTEROL CLASSIFICATION <100mg/dL Optimal 100-129 Near/Above Optimal 130-159mg/dL Borderline High >160mg/dL High Risk Desirable range <100 mg/dL for patients with CHD or diabetes and <70 mg/dL for diabetic patients with known heart disease. Direct LDL is recommended for patients with triglycerides >400. VLDL-CHOL, CALCULATED 26 mg/dL Normal <30 [facility] Cholesterol [Mass/Vol] 165 mg/dL Normal 100-199 [facility] Cholesterol.total/C holesterol in HDL [Mass ratio] 3.6 {ratio} Normal 2.0-4.5 [facility] HDL-CHOL 46 mg/dL Normal >=40 [facility] LDL/HDL 2.0 Normal <5.0 [facility] Comment on above: Result Comment: LDL/ HDL RATIO MALE FEMALE below average risk <2.3 <2.3 average risk <5.0 <4.1 moderate risk <7.1 <5.6 high risk >7.1 >5.6 Triglyceride [Mass/Vol] 131 mg/dL Normal 20-149 [facility] TSHon 06-10-2024 TSH 4.75 uIU/mL High 0.270-4.200 [facility] TSHon 03-05-2024 TSH 4.550 uIu/mL High 0.400-4.100 [facility] Comment on above: Result Comment: [facility] [address] [place] [address] CLIA No. [id number] CAP Accreditation No. [id number] Facial Operator: Destiny Jerez M.D. Cardiac Echocardiogram Trans thoracicon 09-29-2022 Cardiac Echocardiogram Transthoracic TRANSTHORACIC ECHOCARDIOGRAM Study Date/Time: Sep 29 2022 8:34AM BP: 146 / 80 HR: 70 bpm HT/WT: 180.3 cm (71 in) / 95.3 kg (209.6 lb) BSA/BMI: 2.15 m^2 / 29.3 kg/m^2 ORDERING PROVIDER: hSaggy Irene INTERPRETING PHYSICIAN: Wilbur Dick MD SERVICE TESTER: Loren Sommers [facility] ---- INDICATIONS: Athersclerotic Heart Disease. ---- CONCLUSIONS SUMMARY: 1. Left ventricle: The cavity size is normal. Wall thickness is mildly increased. Systolic function is normal. The estimated ejection fraction is 55-65%. 2. Normal right ventricular function. 3. Normal valve structure with no significant stenosis or regurgitation. ---- STUDY DATA: M-mode, complete 2D, complete spectral Doppler, and color Doppler. Study status: Routine. Patient status: Outpatient. Location: Echo laboratory 2. Procedure: Transthoracic echocardiography was performed. Image quality was adequate. ---- FINDINGS LEFT VENTRICLE: The cavity size is normal. Wall thickness is mildly increased. Systolic function is normal. The estimated ejection fraction is 55-65%. Wall motion is normal; there are no regional wall motion abnormalities. Left ventricular diastolic function parameters are normal. LEFT ATRIUM: The atrium is normal in size. RIGHT VENTRICLE: The cavity size is normal. Systolic function is normal. Systolic pressure is within the normal range. RIGHT ATRIUM: The atrium is normal in size. MITRAL VALVE: Structurally normal valve. Leaflet motion is normal. Doppler: Transvalvular velocity is within the normal range. There is no evidence for stenosis. There is trivial regurgitation. AORTIC VALVE: Structurally normal valve. Trileaflet. Cusp separation is normal. Doppler: Transvalvular velocity is within the normal range. There is no stenosis. There is no regurgitation. TRICUSPID VALVE: Structurally normal valve. Leaflet motion is normal. Doppler: Transvalvular velocity is within the normal range. There is no evidence for stenosis. There is no significant regurgitation. PULMONIC VALVE: Structurally normal valve. Cusp motion is normal. Doppler: Transvalvular velocity is within the normal range. There is no regurgitation. AORTA: Aortic root: The aortic root is not dilated. PERICARDIUM: There is no pericardial effusion. SYSTEMIC VEINS: Inferior vena cava: The vessel is normal in size. The respirophasic diameter changes are in the normal range (greater than or equal to 50%). ---- Measurements Left ventricle Value 08/06/2019 Reference LV ID, ED, PLAX, chordal 3.94 cm 4.88 LV ID, ES, PLAX maximal 2.73 cm 3.63 LV fx shortening, PLAX 30.64 % 25.55 25 - 43 LV PW thickness, ES, PLAX 1.48 cm 1.10 LV PW thickness, ED (H) 1.5 cm 0.8 0.6 - 1.0 LV E/e', medial 8.88 5.25 LVOT Value 08/06/2019 Reference LVOT peak velocity, S 0.74 m/sec 0.91 LVOT VTI, S 15.83 cm 21.26 LVOT peak gradient, S 2.2 mm Hg 3.3 Ventricular septum Value 08/06/2019 Reference IVS thickness, ED (H) 1.2 cm 0.9 0.6 - 1.0 IVS thickness, ES 1.8 cm 1.5 Right ventricle Value 08/06/2019 Reference RV ID, ED, PLAX 3.66 cm 2.88 Left atrium Value 08/06/2019 Reference LA volume/bsa, ES, 2-p 21.4 ml/m^2 22.0 LA ID, A-P, ES, MM 3.48 cm 3.70 3.00 - 4.00 LA/aortic root ratio, MM 1.13 1.32 Aortic valve Value 08/06/2019 Reference Aortic valve peak velocity, S 1.11 m/sec 1.21 Aortic valve mean velocity, S 0.77 m/sec 0.83 Aortic mean gradient, S 2.72 mm Hg 3.19 Aortic peak gradient, S 4.97 mm Hg 5.90 Mitral valve Value 08/06/2019 Reference Mitral E-wave peak velocity 0.69 m/sec 0.56 Mitral A-wave peak velocity 0.64 m/sec 0.64 Mitral deceleration time 186.5 ms 277.6 Mitral pressure half-time 54 ms 81 Mitral E/A ratio, peak 1.08 0.88 Mitral valve area, PHT, DP 4.07 cm^2 2.73 Pulmonic valve Value 08/06/2019 Reference Pulmonic valve peak velocity, S 0.99 m/sec 1.11 Pulmonic valve mean velocity, S 0.99 m/sec 1.11 Pulmonic peak gradient, S 3.9 mm Hg 5.0 Aortic root Value 08/06/2019 Reference Aortic root ID STJ, ED 2.17 cm 3.08 Aortic root ID, ED, MM 3.08 cm 2.8 Legend: (L) and (H) robyn values outside specified reference range. Electronically signed by Wilbur Dick MD 09/29/2022 11:42 Final Dictated by: Dusty Dick MD (more content not included)... Normal [facility] NM CARDIOLITE PHARM STRESSon 09-29-2022 NM CARDIOLITE PHARM STRESS Myocardial Perfusion Imaging Report Mouna Walk Height: 180 cm (70.9 in) Weight: 95 kg (209 lb) Ordering Physician: Shaggy Irene Referring Physician: Shaggy Irene Ali Farghali Osman Reading Physician: Wilbur Dick MD ---- Indications: ASHD. Patient denies history of asthma and seizures Patient history of hypertension, HLD, palpitations, syncope and collapse, s/p angioplasty with stent about 4 years ago, smokes a cigar rarely, prediabetic Family history: Negative. ---- Summary: 1. Stress ECG conclusions: The stress ECG is normal. 2. Myocardial perfusion imaging: No myocardial perfusion defects noted. ---- History: Risk factors: Diabetes mellitus. ---- Study data: Study status: Routine. Objective: ASHD. Consent: The risks, benefits, and alternatives to the procedure were explained to the patient and informed consent was obtained. ---- Procedure data: Initial setup. The patient was brought to the laboratory. A baseline ECG was recorded. Intravenous access was obtained. Surface ECG leads and automatic cuff blood pressure measurements were monitored. A pharmacologic approach was used with an addition of the walk protocol. Regadenoson (Lexiscan) stress test. Stress testing was performed, with Regadenoson (Lexiscan) by intravenous bolus, for a total dose of 0.4mgover 10.00 sec, followed by a 5 ml saline flush. Exercise testing was performed using the LEXISCAN WALK protocol. The patient exercised to protocol stage 1, to a maximal work rate of 1.8 mets. Exercise was terminated due to protocol completion and mild fatigue. ---- Baseline ECG: Normal. Stress protocol: - REST; (1 mph, 0% incline ): HR 69 bpm, BP 124/78 (93) rest . Supine. Supine. Standing. Standing. - ; (1 mph, 0% incline ): HR 87 bpm, BP 124/78 (93) lexiscan. sestamibi. Peak. - RECOVERY; (0 mph, 0% incline ): HR 83 bpm, BP 136/66 (89) ARVIN 1/10. on treadmill. no chest pain. at bedside. no SOB. sipping on coffee. test completed. - Peak stress ): HR 105 bpm, BP 151/81 (104) Symptoms: 0.4mg of lexiscan given followed by sestamibi with pt. walking on treadmill; pt. denies chest pain, chest discomfort, SOB; ARVIN max 2/10 for overall fatigue - Late recovery ): HR 83 bpm, BP 136/66 (89) Symptoms: none Stress results: Maximal heart rate during stress was 105 bpm (69% of maximal predicted heart rate). The maximal predicted heart rate was 152 bpm.The target heart rate was 129 bpm. The rate-pressure product for the peak heart rate and blood pressure was 12279 mm Hg/min. Stress ECG: The stress ECG is normal. Isotope administration: - Rest Tc-99m sestamibi 15.1 mCi 08:29 AM IV - Stress Tc-99m sestamibi 47.6 mCi 10:02 AM IV Image properties: Imaging information: The stress images were gated. The image quality was good. CT attenuation corrected and non-corrected images were obtained. Myocardial perfusion imaging: No myocardial perfusion defects noted. The TID ratio is 0.99. Gated SPECT: The left ventricular end-diastolic volume is 103 ml. The overall calculated left ventricular ejection fraction is 75 %. Electronically signed by Wilbur Dick MD 09/29/2022 11:32 Final Dictated by: Wilbur Dick MD Dictated DT/TM: 09/29/2022 11:32 am Signed by: Wilbur Dick MD Signed (Electronic Signature): 09/29/2022 11:32 am (If Report Is Signed, Electronically Signed in Other Vendor System) Normal [facility] Basic Metab w/rfx MGon 08-27 Anion gap [Moles/Vol] 8 mmol/L Low 9-17 [facility] Comment on above: Performed By: #### C DP, BMPX #### [facility] [address] [place] [address] Consumer Loan Manager: Law Soler MD BUN/CRE Ratio 24 High 9-20 [facility] Comment on above: Performed By: #### C DP, BMPX #### [facility] [address] [place] [address] Consumer Loan Manager: Law Soler MD Calcium [Mass/Vol] 8.9 mg/dL Normal 8.6-10.4 [facility] Comment on above: Performed By: #### C DP, BMPX #### [facility] [address] [place] [address] Consumer Loan Manager: Law Soler MD Chloride [Moles/Vol] 107 mmol/L Normal 98-107 [facility] Comment on above: Performed By: #### C DP, BMPX #### [facility] [address] [place], [place] [id number] Consumer Loan Manager: Law Soler MD CO2 [Moles/Vol] 24 mmol/L Normal 20-31 [facility] Comment on above: Performed By: #### C DP, BMPX #### [facility] [address] [place] [address] Consumer Loan Manager: Law Soler MD Creatinine [Mass/Vol] 0.93 mg/dL Normal 0.70-1.20 [facility] Comment on above: Performed By: #### C DP, BMPX #### [facility] [address] [place] [address] Consumer Loan Manager: Law Soler MD GFR/1.73 sq M.predicted among non-blacks MDRD (S/P/Bld) [Vol rate/Area] mL/min/{1.73_m2} Normal >60 [facility] Comment on above: Result Comment: Effective May 22, 2022 These results are not intended for use in patients <18 years of age. eGFR results are calculated without a race factor using the 2020 CKD-EPI equation. Careful clinical correlation is recommended, particularly when comparing to results calculated using previous equations. The CKD-EPI equation is less accurate in patients with extremes of muscle mass, extra-renal metabolism of creatine, excessive creatine ingestion, or following therapy that affects renal tubular secretion. Performed By: #### C DP, BMPX #### [facility] [address] [place] [address] [place] [address] Consumer Loan Manager: Law Soler MD Glucose [Mass/Vol] 162 mg/dL High 70-99 [facility] Comment on above: Performed By: #### C DP, BMPX #### [facility] [address] [place] [address] Consumer Loan Manager: Law Soler MD Potassium [Moles/Vol] 3.8 mmol/L Normal 3.7-5.3 [facility] Comment on above: Performed By: #### C DP, BMPX #### [address] [place] [address] Consumer Loan Manager: Law Soler MD Sodium [Moles/Vol] 139 mmol/L Normal 135-144 [facility] Comment on above: Performed By: #### C DP, BMPX #### [facility] [address] [place] [address] Consumer Loan Manager: Law Soler MD Urea nitrogen [Mass/Vol] 22 mg/dL Normal 8-23 [facility] Comment on above: Performed By: #### C DP, BMPX #### [facility] [address] [place] [address] Consumer Loan Manager: Law Soler MD Basic Metabolic Panel w/ Ref livia to MGon 08-27-2022 Anion gap [Moles/Vol] 8 mmol/L Low 9 - 17 mmol/L [facility] Calcium [Mass/Vol] 8.9 mg/dL 8.6 - 10. 4 mg/dL [facility] Chloride [Moles/Vol] 107 mmol/L 98 - 107 mmol/L [facility] CO2 [Moles/Vol] 24 mmol/L 20 - 31 mmol/L [facility] Creatinine [Mass/Vol] 0.93 mg/dL 0.70 - 1.20 mg/dL [facility] GFR/1.73 sq M.predicted MDRD (S/P/Bld) [Vol rate/Area] - PINF [facility] Comment on above: Effective May 22, 2022 These results are not intended for use in patients <18 years of age. eGFR results are calculated without a race factor using the 2020 CKD-EPI equation. Careful clinical correlation is recommended, particularly when comparing to results calculated using previous equations. The CKD-EPI equation is less accurate in patients with extremes of muscle mass, extra-renal metabolism of creatine, excessive creatine ingestion, or following therapy that affects renal tubular secretion. Glucose [Mass/Vol] 162 mg/dL High 70 - 99 mg/dL [facility] Interpretation and review of laboratory results Abnormal [facility] Potassium [Moles/Vol] 3.8 mmol/L 3.7 - 5.3 mmol/L [facility] Sodium [Moles/Vol] 139 mmol/L 135 - 144 mmol/L [facility] Urea nitrogen (BldV) [Mass/Vol] 22 mg/dL 8 - 23 mg/dL [facility] Urea nitrogen/Creatinine (Bld) [Mass ratio] 24 High 9 - 20 [facility] CBCon 08-27-2022 Erythrocyte distribution width (RBC) [Ratio] 12.4 % Normal 11.8-14.4 [facility] Comment on above: Performed By: #### L IP, TROPI, CBC, CP, MG #### [facility] [address] [place] [address] Consumer Loan Manager: Law Soler MD Hematocrit (Bld) [Volume fraction] 41.9 % Normal 40.7-50.3 [facility] Comment on above: Performed By: #### L IP, TROPI, CBC, CP, MG #### [address] [place], [facility] Consumer Loan Manager: Law Soler MD Hemoglobin (Bld) [Mass/Vol] 14.5 g/dL Normal 13.0-17.0 [facility] Comment on above: Performed By: #### L IP, TROPI, CBC, CP, MG #### [address] [place] [address] Consumer Loan Manager: Law Soler MD MCH (RBC) [Entitic mass] 31.8 pg Normal 25.2-33.5 [facility] Comment on above: Performed By: #### L IP, TROPI, CBC, CP, MG #### [address] [place], [facility]83 Consumer Loan Manager: Law Soler MD MCHC (RBC) [Mass/Vol] 34.6 g/dL Normal 28.4-34.8 [facility] Comment on above: Performed By: #### L IP, TROPI, CBC, CP, MG #### [address] [place] [address] Consumer Loan Manager: Law Soler MD MCV (RBC) [Entitic vol] 91.9 fL Normal 82.6-102.9 [facility] Comment on above: Performed By: #### L IP, TROPI, CBC, CP, MG #### [address] [place] [address] Consumer Loan Manager: Law Soler MD NRBC Automated 0.0 per 100 WBC Normal 0.0 [facility] Comment on above: Performed By: #### L IP, TROPI, CBC, CP, MG #### [address] [place] [address] Consumer Loan Manager: Law Soler MD Platelet mean volume (Bld) [Entitic vol] 10.5 fL Normal 8.1-13.5 [facility] Comment on above: Performed By: #### L IP, TROPI, CBC, CP, MG #### [facility] [address] [place], [place] [id number] Consumer Loan Manager: Law Soler MD Platelets (Bld) [#/Vol] 251 10*3/uL Normal 138-453 [facility] Comment on above: Performed By: #### L IP, TROPI, CBC, CP, MG #### [facility] [address] [place], [place] [id number] Consumer Loan Manager: Law Soler MD RBC (Bld) [#/Vol] 4.56 10*6/uL Normal 4.21-5.77 [facility] Comment on above: Performed By: #### L IP, TROPI, CBC, CP, MG #### [facility] [address] [place], [facility]83 Consumer Loan Manager: Law Soler MD WBC (Bld) [#/Vol] 10.9 10*3/uL Normal 3.5-11.3 [facility] Comment on above: Performed By: #### L IP, TROPI, CBC, CP, MG #### [facility] [address] [place] [address] Consumer Loan Manager: Law Soler MD CBC auto differentialon 01-0 Absolute Eos # 0.11 [facility] Absolute Immature Granulocyte 0.03 [facility] Absolute Lymph # 1.49 [facility] Absolute [place] # 0.73 [facility] Basophils (Bld) [#/Vol] 0.05 10*3/uL [facility] Basophils/100 WBC (Bld) 1 % 0 - 2 % [facility] Eosinophils/100 WBC (Bld) 1 % 1 - 4 % [facility] Hematocrit (Bld) [Volume fraction] 36.7 % Low 40.7 - 50.3 % [facility] Hemoglobin (Bld) [Mass/Vol] 12.9 g/dL Low 13.0 - 17.0 g/dL [facility] Immature granulocytes/100 WBC (Bld) 0 % 0 [facility] Interpretation and review of laboratory results Abnormal [facility] Lymphocytes/100 WBC (Bld) 17 % Low 24 - 43 % [facility] MCH (RBC) [Entitic mass] 32.3 pg 25.2 - 33.5 pg [facility] MCHC (RBC) [Mass/Vol] 35.1 g/dL High 28.4 - 34.8 g/dL [facility] MCV (RBC) [Entitic vol] 91.8 fL 82.6 - 102.9 fL [facility] Monocytes/100 WBC (Bld) 8 % 3 - 12 % [facility] NRBC Automated 0.0 0.0 per 100 WBC [facility] Platelet distribution width (Bld) [Ratio] 12.5 % 11.8 - 14.4 % [facility] Platelet mean volume (Bld) [Entitic vol] 10.7 fL 8.1 - 13.5 fL [facility] Platelets (Bld) [#/Vol] 216 10*3/uL [facility] RBC (Bld) [#/Vol] 4.00 10*6/uL Low 4.21 - 5.7 7 m/uL [facility] Segmented neutrophils/100 WBC (Bld) 73 % High 36 - 65 % [facility] Segs Absolute 6.30 [facility] WBC (Bld) [#/Vol] 8.7 10*3/uL [facility] CBC with Diffon 08-27-2022 Abs. Basophil 0.05 k/uL Normal 0.00-0.20 [facility] Comment on above: Performed By: #### C DP, BMPX #### [facility] [address] [place] [address] Consumer Loan Manager: Law Soler MD Abs.Imm.Granulocyte 0.03 k/uL Normal 0.00-0.30 [facility] Comment on above: Performed By: #### C DP, BMPX #### [address] [place] [address] Consumer Loan Manager: Law Soler MD Abs.Neutrophil (Seg) 6.30 k/uL Normal 1.50-8.10 [facility] Comment on above: Performed By: #### C DP, BMPX #### [address] [place] [address] Consumer Loan Manager: Law Soler MD Basophils/100 WBC (Bld) 1 % Normal 0-2 [facility] Comment on above: Performed By: #### C DP, BMPX #### [address] [place] [address] Consumer Loan Manager: Law Soler MD Eosinophils (Bld) [#/Vol] 0.11 10*3/uL Normal 0.00-0.44 [facility] Comment on above: Performed By: #### C DP, BMPX #### [address] [place] [address] Consumer Loan Manager: Law Soler MD Eosinophils/100 WBC (Bld) 1 % Normal 1-4 [facility] Comment on above: Performed By: #### C DP, BMPX #### [address] [place], [place] [address] Consumer Loan Manager: Law Soler MD Erythrocyte distribution width (RBC) [Ratio] 12.5 % Normal 11.8-14.4 [facility] Comment on above: Performed By: #### C DP, BMPX #### [address] [place] [id number] Consumer Loan Manager: Law Soler MD Hematocrit (Bld) [Volume fraction] 36.7 % Low 40.7-50.3 [facility] Comment on above: Performed By: #### C DP, BMPX #### [facility] [address] [place], [place] [phone] Consumer Loan Manager: Law Soler MD Hemoglobin (Bld) [Mass/Vol] 12.9 g/dL Low 13.0-17.0 [facility] Comment on above: Performed By: #### C DP, BMPX #### [address] [place], [place] [phone] Consumer Loan Manager: Law Soler MD Immature granulocytes/100 WBC (Bld) 0 % Normal 0 [facility] Comment on above: Performed By: #### C DP, BMPX #### [address] [place], [place] [phone] Consumer Loan Manager: Law Soler MD Lymphocytes (Bld) [#/Vol] 1.49 10*3/uL Normal 1.10-3.70 [facility] Comment on above: Performed By: #### C DP, BMPX #### [address] [place], [place] [phone] Consumer Loan Manager: Law Soler MD Lymphocytes/100 WBC (Bld) 17 % Low 24-43 [facility] Comment on above: Performed By: #### C DP, BMPX #### [address] [place], [place] [phone] Consumer Loan Manager: Law Soler MD MCH (RBC) [Entitic mass] 32.3 pg Normal 25.2-33.5 [facility] Comment on above: Performed By: #### C DP, BMPX #### [address] [place] [address] Consumer Loan Manager: Law Soler MD MCHC (RBC) [Mass/Vol] 35.1 g/dL High 28.4-34.8 [facility] Comment on above: Performed By: #### C DP, BMPX #### [address] [place], [place] [phone] Consumer Loan Manager: Law Soler MD MCV (RBC) [Entitic vol] 91.8 fL Normal 82.6-102.9 [facility] Comment on above: Performed By: #### C DP, BMPX #### [address] [place], [place] [phone] Consumer Loan Manager: Law Soler MD Monocytes (Bld) [#/Vol] 0.73 10*3/uL Normal 0.10-1.20 [facility] Comment on above: Performed By: #### C DP, BMPX #### [address] [place], [place] [phone] Consumer Loan Manager: Law Soler MD Monocytes/100 WBC (Bld) 8 % Normal 3-12 [facility] Comment on above: Performed By: #### C DP, BMPX #### [address] [place], [facility]83 Consumer Loan Manager: Law Soler MD Neutrophil (Seg) 73 % High 36-65 [facility] Comment on above: Performed By: #### C DP, BMPX #### [address] [place], [place] [phone] Consumer Loan Manager: Law Soler MD NRBC Automated 0.0 per 100 WBC Normal 0.0 [facility] Comment on above: Performed By: #### C DP, BMPX #### [address] [place], [facility]83 Consumer Loan Manager: Law Soler MD Platelet mean volume (Bld) [Entitic vol] 10.7 fL Normal 8.1-13.5 [facility] Comment on above: Performed By: #### C DP, BMPX #### [address] [place] [address] Consumer Loan Manager: Law Soler MD Platelets (Bld) [#/Vol] 216 10*3/uL Normal 138-453 [facility] Comment on above: Performed By: #### C DP, BMPX #### [facility] [address] [place] [address] Consumer Loan Manager: Law Soler MD RBC (Bld) [#/Vol] 4.00 10*6/uL Low 4.21-5.77 [facility] Comment on above: Performed By: #### C DP, BMPX #### [facility] [address] [place], [place] [phone] Consumer Loan Manager: Law Soler MD WBC (Bld) [#/Vol] 8.7 10*3/uL Normal 3.5-11.3 [facility] Comment on above: Performed By: #### C DP, BMPX #### [address] [place], [place] [phone] Consumer Loan Manager: Law Soler MD Comp Metabolic Profon 2022 AST [Catalytic activity/Vol] 18 U/L Normal <40 [facility] Comment on above: Performed By: #### L IP, TROPI, CBC, CP, MG #### [address] [place], [place] [phone] Consumer Loan Manager: Law Soler MD Albumin [Mass/Vol] 4.1 g/dL Normal 3.5-5.2 [facility] Comment on above: Performed By: #### L IP, TROPI, CBC, CP, MG #### [address] [place], [place] [phone] Consumer Loan Manager: Law Soler MD Albumin/Glob Ratio 1.2 Normal 1.0-2.5 [facility] Comment on above: Performed By: #### L IP, TROPI, CBC, CP, MG #### [address] [place], [place] [address]73[address]83 Consumer Loan Manager: Law Soler MD Alkaline Phos 83 U/L Normal 40-129 [facility] Comment on above: Performed By: #### L IP, TROPI, CBC, CP, MG #### [facility] [address] [place], [place] [phone] Consumer Loan Manager: Law Soler MD ALT [Catalytic activity/Vol] 17 U/L Normal 5-41 [facility] Comment on above: Performed By: #### L IP, TROPI, CBC, CP, MG #### [facility] [address] [place], [place] [phone] Consumer Loan Manager: Law Soler MD Anion gap [Moles/Vol] 12 mmol/L Normal 9-17 [facility] Comment on above: Performed By: #### L IP, TROPI, CBC, CP, MG #### [facility] [address] [place], [place] [phone] Consumer Loan Manager: Law Soler MD Bilirubin [Mass/Vol] 0.3 mg/dL Normal 0.3-1.2 [facility] Comment on above: Performed By: #### L IP, TROPI, CBC, CP, MG #### [facility] [address] [place], [place] [phone] Consumer Loan Manager: Law Soler MD BUN/CRE Ratio 30 High 9-20 [facility] Comment on above: Performed By: #### L IP, TROPI, CBC, CP, MG #### [facility] [address] [place], [place] [phone] Consumer Loan Manager: Law Soler MD Calcium [Mass/Vol] 9.9 mg/dL Normal 8.6-10.4 [facility] Comment on above: Performed By: #### L IP, TROPI, CBC, CP, MG #### [facility] [address] [place] [address] Consumer Loan Manager: Law Soler MD Chloride [Moles/Vol] 100 mmol/L Normal 98-107 [facility] Comment on above: Performed By: #### L IP, TROPI, CBC, CP, MG #### [facility] [address] [place] [address] Consumer Loan Manager: Law Soler MD CO2 [Moles/Vol] 25 mmol/L Normal 20-31 [facility] Comment on above: Performed By: #### L IP, TROPI, CBC, CP, MG #### [facility] [address] [place] [address] Consumer Loan Manager: Law Soler MD Creatinine [Mass/Vol] 1.01 mg/dL Normal 0.70-1.20 [facility] Comment on above: Performed By: #### L IP, TROPI, CBC, CP, MG #### [facility] [address] [place] [address] Consumer Loan Manager: Law Soler MD GFR/1.73 sq M.predicted among non-blacks MDRD (S/P/Bld) [Vol rate/Area] mL/min/{1.73_m2} Normal >60 [facility] Comment on above: Result Comment: Effective May 22, 2022 These results are not intended for use in patients <18 years of age. eGFR results are calculated without a race factor using the 2020 CKD-EPI equation. Careful clinical correlation is recommended, particularly when comparing to results calculated using previous equations. The CKD-EPI equation is less accurate in patients with extremes of muscle mass, extra-renal metabolism of creatine, excessive creatine ingestion, or following therapy that affects renal tubular secretion. Performed By: #### L IP, TROPI, CBC, CP, MG #### [facility] [address] [place] [address] Consumer Loan Manager: Law Soler MD Glucose [Mass/Vol] 177 mg/dL High 70-99 [facility] Comment on above: Performed By: #### L IP, TROPI, CBC, CP, MG #### [facility] [address] [place] [address] Consumer Loan Manager: Law Soler MD Potassium [Moles/Vol] 3.9 mmol/L Normal 3.7-5.3 [facility] Comment on above: Performed By: #### L IP, TROPI, CBC, CP, MG #### [facility] [address] [place] [address] [place] [address] Consumer Loan Manager: Law Soler MD Protein [Mass/Vol] 7.5 g/dL Normal 6.4-8.3 [facility] Comment on above: Performed By: #### L IP, TROPI, CBC, CP, MG #### [address] [place] [address] Consumer Loan Manager: Law Soler MD Sodium [Moles/Vol] 137 mmol/L Normal 135-144 [facility] Comment on above: Performed By: #### L IP, TROPI, CBC, CP, MG #### [address] [place] [address] Consumer Loan Manager: Law Soler MD Urea nitrogen [Mass/Vol] 30 mg/dL High 8-23 [facility] Comment on above: Performed By: #### L IP, TROPI, CBC, CP, MG #### [address] [place] [address] Consumer Loan Manager: Law Soler MD EKG Rhythm Stripon 3 [facility] Ethanol Alcoholon 5 Ethanol [Mass/Vol] mg/dL Normal <10 [facility] Comment on above: Performed By: #### A LCB #### [address] [place] [address] Consumer Loan Manager: Law Soler MD Ethanol percent <0.010 Normal <0.010 [facility] Comment on above: Performed By: #### A LCB #### [facility] [address] [place], [place] [phone] Consumer Loan Manager: Law Soler MD Lipaseon 08-27-2022 Lipase [Catalytic activity/Vol] 29 U/L Normal 13-60 [facility] Comment on above: Performed By: #### L IP, TROPI, CBC, CP, MG #### [facility] [address] [place], [place] [phone] Consumer Loan Manager: Law Soler MD Magnesiumon 08-27-2022 Magnesium [Mass/Vol] 2.0 mg/dL Normal 1.6-2.6 [facility] Comment on above: Performed By: #### L IP, TROPI, CBC, CP, MG #### [facility] [address] [place], [place] [phone] Consumer Loan Manager: Law Soler MD Troponinon 08-27-2022 Troponin, High Sens 13 ng/L Normal 0-22 [facility] Comment on above: Result Comment: High Sensitivity Troponin values cannot be compared with other Troponin methodologies. Performed By: #### T ROPI #### [facility] [address] [place], [place] [phone] Consumer Loan Manager: Law Soler MD Troponin, High Sens 14 ng/L Normal 0-22 [facility] Comment on above: Result Comment: High Sensitivity Troponin values cannot be compared with other Troponin methodologies. Performed By: #### L IP, TROPI, CBC, CP, MG #### [facility] [address] [place], [place] [phone] Consumer Loan Manager: Law Soler MD Troponin, High Sensitivity 13 ng/L 0 - 22 ng/L [facility] Comment on above: High Sensitivity Tro ponin values cannot be compared with other Troponin methodologies. [facility] Troponin, High Sensitivity 14 ng/L 0 - 22 ng/L [facility] Comment on above: High Sensitivity Tro ponin values cannot be compared with other Troponin methodologies. [facility] XR CHEST PORTABLEon 01-08-20 23 XR CHEST PORTABLE EXAMINATION: ONE XRAY VIEW OF THE CHEST 08/26/2022 11:23 pm COMPARISON: Two-view chest dated 02/10/2018 HISTORY: ORDERING SYSTEM PROVIDED HISTORY: Chest Pain TECHNOLOGIST PROVIDED HISTORY: Chest Pain FINDINGS: Heart size and pulmonary vasculature are normal. The lungs are clear and normally expanded. Surrounding osseous and soft tissue structures are unremarkable. IMPRESSION: Normal examination. Interpreted by: Rocky Cordova MD Signed by: Rocky Cordova MD 08/26/22 Final result Normal [facility] CBCon 08-26-2022 Hematocrit (Bld) [Volume fraction] 41.9 % 40.7 - 50.3 % [facility] Hemoglobin (Bld) [Mass/Vol] 14.5 g/dL 13.0 - 17.0 g/dL [facility] MCH (RBC) [Entitic mass] 31.8 pg 25.2 - 33.5 pg [facility] MCHC (RBC) [Mass/Vol] 34.6 g/dL 28.4 - 34.8 g/dL [facility] MCV (RBC) [Entitic vol] 91.9 fL 82.6 - 102.9 fL [facility] NRBC Automated 0.0 0.0 per 100 WBC [facility] Platelet distribution width (Bld) [Ratio] 12.4 % 11.8 - 14.4 % [facility] Platelet mean volume (Bld) [Entitic vol] 10.5 fL 8.1 - 13.5 fL [facility] Platelets (Bld) [#/Vol] 251 10*3/uL [facility] RBC (Bld) [#/Vol] 4.56 10*6/uL 4.21 - 5.7 7 m/uL [facility] WBC (Bld) [#/Vol] 10.9 10*3/uL [facility] Comprehensive Metabolic Pane cydney 08-26-2022 Albumin [Mass/Vol] 4.1 g/dL 3.5 - 5.2 g/dL [facility] Albumin/Globulin [Mass ratio] 1.2 {ratio} 1.0 - 2.5 [facility] ALP (Bld) [Catalytic activity/Vol] 83 U/L 40 - 129 U/L [facility] ALT [Catalytic activity/Vol] 17 U/L 5 - 41 U/L [facility] Anion gap [Moles/Vol] 12 mmol/L 9 - 17 mmol/L [facility] AST [Catalytic activity/Vol] 18 U/L NINF - 40 U/L [facility] Bilirubin [Mass/Vol] 0.3 mg/dL 0.3 - 1.2 mg/dL [facility] Calcium [Mass/Vol] 9.9 mg/dL 8.6 - 10. 4 mg/dL [facility] Chloride [Moles/Vol] 100 mmol/L 98 - 107 mmol/L [facility] CO2 [Moles/Vol] 25 mmol/L 20 - 31 mmol/L [facility] Creatinine [Mass/Vol] 1.01 mg/dL 0.70 - 1.20 mg/dL [facility] GFR/1.73 sq M.predicted MDRD (S/P/Bld) [Vol rate/Area] - PINF [facility] Comment on above: Effective May 22, 2022 These results are not intended for use in patients <18 years of age. eGFR results are calculated without a race factor using the 2020 CKD-EPI equation. Careful clinical correlation is recommended, particularly when comparing to results calculated using previous equations. The CKD-EPI equation is less accurate in patients with extremes of muscle mass, extra-renal metabolism of creatine, excessive creatine ingestion, or following therapy that affects renal tubular secretion. Glucose [Mass/Vol] 177 mg/dL High 70 - 99 mg/dL [facility] Interpretation and review of laboratory results Abnormal [facility] Potassium [Moles/Vol] 3.9 mmol/L 3.7 - 5.3 mmol/L [facility] Protein [Mass/Vol] 7.5 g/dL 6.4 - 8.3 g/dL [facility] Sodium [Moles/Vol] 137 mmol/L 135 - 144 mmol/L [facility] Urea nitrogen (BldV) [Mass/Vol] 30 mg/dL High 8 - 23 mg/dL [facility] Urea nitrogen/Creatinine (Bld) [Mass ratio] 30 High 9 - 20 [facility] Ethanolon 08-26-2022 Ethanol [Mass/Vol] mg/dL NINF - 10 mg/dL [facility] [employer] Ethanol percent <0.010 NINF - 0.010 % [facility] Lipaseon 08-26-2022 Lipase [Catalytic activity/Vol] 29 U/L 13 - 60 U/L [facility] Magnesiumon 08-26-2022 Magnesium [Mass/Vol] 2.0 mg/dL 1.6 - 2.6 mg/dL [facility] [employer] No Panel Informationon 08-26 [facility] XR CHEST PORTABLEon 08-26-19 23 Normal examination. [facility] EXAMINATION: ONE XRAY VIEW OF THE CHEST 08/26/2022 11:23 pm COMPARISON: Two-view chest dated 02/10/2018 HISTORY: ORDERING SYSTEM PROVIDED HISTORY: Chest Pain TECHNOLOGIST PROVIDED HISTORY: Chest Pain FINDINGS: Heart size and pulmonary vasculature are normal. The lungs are clear and normally expanded. Surrounding osseous and soft tissue structures are unremarkable. [facility] Rocky Cordova MD - 08/26/2022 EXAMINATION: ONE XRAY VIEW OF THE CHEST 08/26/2022 11:23 pm COMPARISON: Two-view chest dated 02/10/2018 HISTORY: ORDERING SYSTEM PROVIDED HISTORY: Chest Pain TECHNOLOGIST PROVIDED HISTORY: Chest Pain FINDINGS: Heart size and pulmonary vasculature are normal. The lungs are clear and normally expanded. Surrounding osseous and soft tissue structures are unremarkable. IMPRESSION: Normal examination. [facility] [employer] Work Phone: Radiology Study observation (narrative) [facility] Work Phone: XR CHEST PORTABLEOrdered By: Rocky Cordova on 08-26-2022 [facility] [employer] Work Phone: Urinalysis with Microscopico n 05-17-2020 Amorphous, UA NOT REPORTED None [facility] [place] Bacteria, UA TRACE Abnormal None [facility] [place], [place] Bilirubin Urine Negative NEGATIVE [facility] [place] Casts UA NOT REPORTED /LPF [place] Color, UA YELLOW YELLOW [place] Crystals, UA NOT REPORTED None /HPF [place] Epithelial Cells UA 0 TO 2 [place] Glucose, Ur Negative NEGATIVE [place] Interpretation and review of laboratory results Abnormal [place] Ketones Ql (U) TRACE Abnormal NEGATIVE [place] Leukocyte esterase Test strip Ql (U) Negative NEGATIVE [place] Mucus, UA 2+ Abnormal None [place] Nitrite, Urine Negative NEGATIVE [place] Other Observations UA NOT REPORTED NOT REQ. [place] pH, UA 6.0 [place] Protein (U) [Mass/Vol] Negative NEGATIVE [place] RBC (U) [#/Vol] None [facility] [place] Renal Epithelial, UA NOT REPORTED 0 /HPF [place] Specific [place], UA 1.025 High [place] Trichomonas, UA NOT REPORTED None [facility] [place] Turbidity UA CLEAR CLEAR [place] Urinalysis Comments NOT REPORTED [place] Urine Hgb Negative NEGATIVE [place] Urobilinogen, Urine Normal Normal [place] WBC, UA 0 TO 2 [place] Yeast, UA NOT REPORTED None [place], [place] CYSTOGRAM INJECTIONon [place] CYSTOGRAM INJECTION Radiology exam is complete. No Radiologist dictation. Please follow up with ordering provider. Final result Normal [facility] [place] CYSTOGRAM MINIMUM 3 VWon 02-07-2018 [place] CYSTOGRAM MINIMUM 3 VW EXAMINATION:CYSTOGRAM01/19 10:47 amCOMPARISON:None.HISTOR Y:ORDERING SYSTEM PROVIDED HISTORY: Prostate cancer (HCC)TECHNOLOGIST PROVIDED HISTORY:If no leaking, pull catheterReason for exam:->post prostatectomyOrdering Physician Provided Reason for Exam: 9 days post prostatectomyAcuity: AcuteType of Exam: InitialFLUOROSCOPY DOSE AND TYPE OR TIME AND EXPOSURES:36 seconds fluoroscopy time1,469 dGyFINDINGS:The bladder is elongated in craniocaudal dimension. Trace periurethral leakidentified on the right at the base of the urinary bladder. Mora catheterremain in place. Osseous structures demonstrate abnormal sphericity of thefemoral heads possibly indicating underlying CAM type femoroacetabularimpingem ent.IMPRESSION: Small leak at the base of the urinary bladder. 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 Additional eGFR calculator available at: http://www.In Ovo/multiple_crcl_2012.htm [address] [address] Performed By: #### C LIO, BMP #### [facility] [employer] [address] [place] [address] Anion gap molar conc 10 mmol/L Normal 9-17 [facility] Comment on above: Performed By: #### Josh VACA, BMP #### [facility] [address] [place] [address] Calcium mass conc 7.7 mg/dL Low 8.6-10.4 [facility] Comment on above: Performed By: #### C LIO, BMP #### [facility] [address] [place] [address] Chloride molar conc 102 mmol/L Normal 98-107 [facility] Comment on above: Performed By: #### Josh VACA, BMP #### [facility] [employer] [address] [place] [address] CO2 molar conc 20 mmol/L Normal 20-31 [facility] Comment on above: Performed By: #### C BC, BMP #### [facility] [employer] [address] [place] [address] Creatinine mass conc 1.23 mg/dL High 0.70-1.20 [facility] Comment on above: Performed By: #### C BC, BMP #### [facility] [address] [place] [address] GFR, Amer >60 Normal >60 [facility] Comment on above: Performed By: #### C LIO, BMP #### [facility] [employer] [address] [place] [address] GFR,non Amer 59 mL/min Low >60 [facility] Comment on above: Performed By: #### C LIO, BMP #### [facility] [address] [place] [address] Glucose mass conc 118 mg/dL High 70-99 [facility] Comment on above: Performed By: #### C LIO, BMP #### [facility] [employer] [address] [place] [address] Potassium molar conc 4.1 mmol/L Normal 3.7-5.3 [facility] Comment on above: Performed By: #### C BC, BMP #### [facility] [address] [place] [address]692 Sodium molar conc 132 mmol/L Low 135-144 [facility] Comment on above: Performed By: #### C BC, BMP #### [facility] [employer] [address] [place] [address]7785 Urea nitrogen mass conc 18 mg/dL Normal 8-23 [facility] Comment on above: Performed By: #### C BC, BMP #### [facility] [address] [place] [address] BUN/CRE Ratio NOT REPORTED Normal 9-20 [facility] Comment on above: Performed By: #### C BC, BMP #### [facility] [employer] [address] [place] [address] 15872 Staging: NOT REPORTED Normal [facility] Comment on above: Performed By: #### C BC, BMP #### [facility] [employer] [address] [place] [address] CBCon 01-30-2018 Erythrocyte distribution width Ratio (RBC) 13.1 % Normal 11.8-14.4 [facility] Comment on above: Performed By: #### C BC, BMP #### [facility] [employer] [address] [place] [address]458 Hematocrit Volume Fraction (Bld) 40.2 % Low 40.7-50.3 [facility] Comment on above: Performed By: #### C BC, BMP #### [facility] [employer] [address] [place] [address] 39993 Hemoglobin mass conc (Bld) 13.1 g/dL Normal 13.0-17.0 [facility] Comment on above: Performed By: #### C BC, BMP #### [facility] [employer] [address] [place] [address]337 MCH Entitic mass (RBC) 29.8 pg Normal 25.2-33.5 [facility] Comment on above: Performed By: #### C BC, BMP #### [facility] [employer] [address] [place] [address] MCHC mass conc (RBC) 32.6 g/dL Normal 28.4-34.8 [facility] Comment on above: Performed By: #### C BC, BMP #### [facility] [employer] [address] [place] [address] 05746 MCV Entitic volume (RBC) 91.6 fL Normal 82.6-102.9 [facility] Comment on above: Performed By: #### C BC, BMP #### [address] [address] NRBC Automated 0.0 per 100 WBC Normal 0.0 [facility] Comment on above: Result Comment: [address] [address] Performed By: #### C BC, BMP #### [address] [address] Platelet mean volume Entitic volume (Bld) 10.4 fL Normal 8.1-13.5 [facility] Comment on above: Performed By: #### C BC, BMP #### [address] [address] Platelets #/vol (Bld) 294 10*3/uL Normal 138-453 [facility] Comment on above: Performed By: #### C BC, BMP #### [address] [address] RBC #/vol (Bld) 4.39 10*6/uL Normal 4.21-5.77 [facility] Comment on above: Performed By: #### C BC, BMP #### [address] [address] WBC #/vol (Bld) 8.9 10*3/uL Normal 3.5-11.3 [facility] Comment on above: Performed By: #### C BC, BMP #### [address] [address] Cult,Urineon 01-30-2018 Cult,Urine Specimen Description .CATHETERIZED URINE MORA SPECIMEN INSERTION Special Requests NOT REPORTED Culture NO GROWTH Report Status FINAL 01/30/2018 Normal [facility] Comment on above: Performed By: #### U RC #### [address] [address] Basic Metabolic Profon 01-29 (cont.) Normal [facility] Comment on above: Result Comment: Aver age GFR for 60-69 years old: 85 mL/min/1.73sq m Chronic Kidney Disease: <60 mL/min/1.73sq m Kidney failure: <15 mL/min/1.73sq m eGFR calculated using average adult body mass. Additional eGFR calculator available at: http://www.In Ovo/multiple_crcl_2012.htm [address] [address] Performed By: #### B MP #### [address] [address] Anion gap molar conc 13 mmol/L Normal 9-17 [facility] Comment on above: Performed By: #### B MP #### [facility] [employer] [address] [place] [address] Calcium mass conc 8.9 mg/dL Normal 8.6-10.4 [facility] Comment on above: Performed By: #### B MP #### [facility] [employer] [address] [place] [address]96 Chloride molar conc 100 mmol/L Normal 98-107 [facility] Comment on above: Performed By: #### B MP #### [facility] [employer] [address] [place] [address]44 CO2 molar conc 24 mmol/L Normal 20-31 [facility] Comment on above: Performed By: #### B MP #### [facility] [employer] [address] [place] [address]654 Creatinine mass conc 0.98 mg/dL Normal 0.70-1.20 [facility] Comment on above: Performed By: #### B MP #### [facility] [employer] [address] [place] [address] 10668 GFR, Amer >60 Normal >60 [facility] Comment on above: Performed By: #### B MP #### [facility] [place] [address] GFR,non Amer >60 Normal >60 [facility] Comment on above: Performed By: #### B MP #### [facility] [place] [address] Glucose mass conc 122 mg/dL High 70-99 [facility] Comment on above: Performed By: #### B MP #### [facility] [address] [place] [address] Potassium molar conc 4.3 mmol/L Normal 3.7-5.3 [facility] Comment on above: Performed By: #### B MP #### [facility] [address] [place] [address] Sodium molar conc 137 mmol/L Normal 135-144 [facility] Comment on above: Performed By: #### B MP #### [facility] [address] [place] [address]358 Urea nitrogen mass conc 13 mg/dL Normal 8-23 [facility] Comment on above: Performed By: #### B MP #### [facility] [address] [place] [address]34 BUN/CRE Ratio NOT REPORTED Normal 9-20 [facility] Comment on above: Performed By: #### B MP #### [facility] [address] [place] [address]1548 Staging: NOT REPORTED Normal [facility] Comment on above: Performed By: #### B MP #### [facility] [address] [place] [address] CBCon 01-29-2018 Erythrocyte distribution width Ratio (RBC) 13.2 % Normal 11.8-14.4 [facility] Comment on above: Performed By: #### C BC #### [facility] [employer] [address] [place] [address] 71493 Hematocrit Volume Fraction (Bld) 48.4 % Normal 40.7-50.3 [facility] Comment on above: Performed By: #### C BC #### [address] [address] Hemoglobin mass conc (Bld) 15.6 g/dL Normal 13.0-17.0 [facility] Comment on above: Performed By: #### C BC #### [facility] [employer] [address] [place] [address] 51787 MCH Entitic mass (RBC) 29.8 pg Normal 25.2-33.5 [facility] Comment on above: Performed By: #### C BC #### [facility] [employer] [address] [place] [address]61 MCHC mass conc (RBC) 32.2 g/dL Normal 28.4-34.8 [facility] Comment on above: Performed By: #### C BC #### [address] [address] MCV Entitic volume (RBC) 92.5 fL Normal 82.6-102.9 [facility] Comment on above: Performed By: #### C BC #### [address] [address] NRBC Automated 0.0 per 100 WBC Normal 0.0 [facility] Comment on above: Result Comment: [address] [address] Performed By: #### C BC #### [address] [address] Platelet mean volume Entitic volume (Bld) 10.8 fL Normal 8.1-13.5 [facility] Comment on above: Performed By: #### C BC #### [facility] [place] [address] Platelets #/vol (Bld) 319 10*3/uL Normal 138-453 [facility] Comment on above: Performed By: #### C BC #### [facility] [place], [place] [address] RBC #/vol (Bld) 5.23 10*6/uL Normal 4.21-5.77 [facility] Comment on above: Performed By: #### C BC #### [facility] [address] [place] [address] WBC #/vol (Bld) 17.4 10*3/uL High 3.5-11.3 [facility] Comment on above: Performed By: #### C BC #### [facility] [address] [place] [address] Surgical Pathologyon 018 Surgical Pathology (NOTE) [id number] [facility] ANATOMIC PATHOLOGY [address] [place] [id number] SURGICAL PATHOLOGY CONSULTATION Patient Name: YG GALVEZ [facility] Rec: [id number] Path Number: [id number] Collected: 01/29/2018 Received: 01/30/2018 Reported: 02/04/2018 15:35 -- Diagnosis -- 1. 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 Tumor is organ confined. Margins, free of tumor. 2. Bilateral Pelvic Lymph Nodes, Excision: Benign lymph nodes, negative for metastatic carcinoma (0/5). Sunday Reese Electronically Signed Out [facility]/02/01/2018 Clinical Information Pre-op Diagnosis: PROSTATE CANCER Operative Findings: PROSTATE AND SEMINAL VESICLES; BILATERAL PELVIC LYMPH NODES Operation Performed: PROSTATECTOMY LAPAROSCOPIC XI ROBOTIC WITH BILATERAL PELVIC LYMPH NODE DISSECTION Source of Specimen 1: PROSTATE AND SEMINAL VESSICLES (A) 2: BILATERAL PELVIC LYMPH NODES (B) Gross Description 1. YG MINZER, PROSTATE AND SEMINAL VESICLES A 109-gram, 6.6 x 7.8 x 6.0 cm (length x width x height) prostate with attached intact seminal vesicles and vasa deferentia. Separate, are fragments of fat, 5 x 2.5 x 2.5 cm in aggregate. The external surfaces of the prostate are ragged pink-le with the right half inked blue and left half black, and anterior aspect tagged green. Sectioning reveals periurethral nodules with no discrete masses. Cassette summary: A-D apex margin perpendicular, E-J cross section, K-S rim section including base of seminal vesicles, T-X bladder neck margin perpendicular, Y seminal vesicles and vasa deferentia margins, Z practice representative separate fat, AA-LL additional sections of prostate. 2. YG GALVEZ, BILATERAL PELVIC LYMPH NODES Fragments of fat, 6.0 x 5.0 x 3.0 cm in aggregate. Fatty nodes up to 3.5 cm. Cassette summary: A intact nodes, B-D one node each. as Microscopic Description 1, 2. PROCEDURE: Radical Prostatectomy. HISTOLOGIC TYPE: Adenocarcinoma. HISTOLOGIC GRADE (CAIO=PRIMARY+SECONDA RY PATTERNS): 3+4=7. The percentage of pattern 4 is 40%. GRADE GROUP (ISUP / WHO): 2/5 TUMOR QUANTITATION: Tumor is present within the left lobe. The largest size measured from slide is 5 mm. Tumor involved <50% of the left lobe. EXTRAPROSTATIC EXTENSION (pT3a): No. URINARY BLADDER NECK INVASION (pT3a): No. SEMINAL VESICLE INVASION (MUSCLE WALL) (pT3b): No. MARGINS (LOCATION IF POSITIVE): Free of tumor. TREATMENT EFFECT ON CARCINOMA: N/A REGIONAL LYMPH NODES -NUMBER OF LYMPH NODES EXAMINED: 5 -NUMBER WITH METASTASIS: 0 PATHOLOGIC STAGE CLASSIFICATION: pT2, pN0 CAP Prostate 4020 in conjunction with AJCC 8 ed. Normal [facility] Cult,Urineon 01-23-2018 Cult,Urine Specimen Description .Random Urine Special Requests NOT REPORTED Culture NO GROWTH Report Status FINAL 01/23/2018 [facility] Comment on above: Performed By: #### U #### [facility] [place] [address] BUN + Creatinineon 06-05-201 8 (cont.) Normal [facility] Comment on above: Result Comment: Aver age GFR for 60-69 years old: 85 mL/min/1.73sq m Chronic Kidney Disease: <60 mL/min/1.73sq m Kidney failure: <15 mL/min/1.73sq m eGFR calculated using average adult body mass. Additional eGFR calculator available at: http://www.In Ovo/multiple_crcl_2011.htm [address] [address] Performed By: #### C BC, BUNCRT, GLU, LYTE #### [address] [address] Creatinine mass conc 1.11 mg/dL Normal 0.70-1.20 [facility] Comment on above: Performed By: #### C BC, BUNCRT, GLU, LYTE #### [address] [address] GFR, Amer >60 Normal >60 [facility] Comment on above: Performed By: #### C BC, BUNCRT, GLU, LYTE #### [facility] [employer] [address] [place] [address] GFR,non Amer >60 Normal >60 [facility] Comment on above: Performed By: #### C BC, BUNCRT, GLU, LYTE #### [facility] [employer] [address] [place] [address] 26793 Urea nitrogen mass conc 17 mg/dL Normal 8-23 [facility] Comment on above: Performed By: #### C BC, BUNCRT, GLU, LYTE #### [facility] [employer] [address] [place] [address]273 Staging: NOT REPORTED Normal [facility] Comment on above: Performed By: #### C BC, BUNCRT, GLU, LYTE #### [facility] [employer] [address] [place] [address]10 CBCon 01-22-2018 Erythrocyte distribution width Ratio (RBC) 12.6 % Normal 11.8-14.4 [facility] Comment on above: Performed By: #### C BC, BUNCRT, GLU, LYTE #### [facility] [employer] [address] [place] [address] Hematocrit Volume Fraction (Bld) 43.6 % Normal 40.7-50.3 [facility] Comment on above: Performed By: #### C BC, BUNCRT, GLU, LYTE #### [facility] [employer] [address] [place] [address] Hemoglobin mass conc (Bld) 14.5 g/dL Normal 13.0-17.0 [facility] Comment on above: Performed By: #### C BC, BUNCRT, GLU, LYTE #### [address] [address] MCH Entitic mass (RBC) 30.0 pg Normal 25.2-33.5 [facility] Comment on above: Performed By: #### C BC, BUNCRT, GLU, LYTE #### [address] [address] MCHC mass conc (RBC) 33.3 g/dL Normal 28.4-34.8 [facility] Comment on above: Performed By: #### C BC, BUNCRT, GLU, LYTE #### [facility] [employer] [address] [place] [address] MCV Entitic volume (RBC) 90.3 fL Normal 82.6-102.9 [facility] Comment on above: Performed By: #### C BC, BUNCRT, GLU, LYTE #### [address] [address] NRBC Automated 0.0 per 100 WBC Normal 0.0 [facility] Comment on above: Result Comment: [address] [place] [address] Performed By: #### C BC, BUNCRT, GLU, LYTE #### [facility] [employer] [address] [place] [address] Platelet mean volume Entitic volume (Bld) 9.9 fL Normal 8.1-13.5 [facility] Comment on above: Performed By: #### C BC, BUNCRT, GLU, LYTE #### [facility] [employer] [address] [place] [address] Platelets #/vol (Bld) 310 10*3/uL Normal 138-453 [facility] Comment on above: Performed By: #### C BC, BUNCRT, GLU, LYTE #### [facility] [employer] [address] [place] [address] RBC #/vol (Bld) 4.83 10*6/uL Normal 4.21-5.77 [facility] Comment on above: Performed By: #### C BC, BUNCRT, GLU, LYTE #### [facility] [employer] [address] [place] [address] WBC #/vol (Bld) 8.2 10*3/uL Normal 3.5-11.3 [facility] Comment on above: Performed By: #### C BC, BUNCRT, GLU, LYTE #### [facility] [employer] [address] [place] [address] Electrolyteson 01-22-2018 Anion gap molar conc 17 mmol/L Normal 9-17 [facility] Comment on above: Result Comment: [facility] [employer] [address] [place] [address] Performed By: #### C BC, BUNCRT, GLU, LYTE #### [facility] [employer] [address] [place] [address] Chloride molar conc 105 mmol/L Normal 98-107 [facility] Comment on above: Performed By: #### C BC, BUNCRT, GLU, LYTE #### [facility] [address] [place] [address] CO2 molar conc 21 mmol/L Normal 20-31 [facility] Comment on above: Performed By: #### C BC, BUNCRT, GLU, LYTE #### [facility] [address] [place] [address] Potassium molar conc 4.5 mmol/L Normal 3.7-5.3 [facility] Comment on above: Performed By: #### C BC, BUNCRT, GLU, LYTE #### [facility] [employer] [address] [place] [address]264 Sodium molar conc 143 mmol/L Normal 135-144 [facility] Comment on above: Performed By: #### C BC, BUNCRT, GLU, LYTE #### [facility] [employer] [address] [place] [address] Glucoseon 01-22-2018 Glucose mass conc 113 mg/dL High 70-99 [facility] Comment on above: Result Comment: [facility] [employer] [address] [place] [address] Performed By: #### C BC, BUNCRT, GLU, LYTE #### [facility] [employer] [address] [place] [address]206 Vital Signs Date Time Vital Sign Value Performing Clinician Terencei yesy 10-06-2024 10:19-0500 Blood Pressure Location Delroy HOLDER [facility] 10-06-2024 10:19-0500 Body temperature 98.6 [degF] Delroy HOLDER [facility] 10-06-2024 10:19-0500 Diastolic blood pressure 78 mm[Hg] Delroy HOLDER [facility] 10-06-2024 10:19-0500 Heart rate 80 /min Delroy HOLDER [facility] 10-06-2024 10:19-0500 Systolic blood pressure 142 mm[Hg] Delroy HOLDER [facility] 06-30-2024 13:21-0500 Blood Pressure Location Delroy HOLDER [facility] 06-30-2024 13:21-0500 Body temperature 98.6 [degF] Delroy HOLDER [facility] 06-30-2024 13:21-0500 Diastolic blood pressure 78 mm[Hg] Delroy HOLDER [facility] 06-30-2024 13:21-0500 Heart rate 69 /min Delroy HOLDER [facility] 06-30-2024 13:21-0500 Respiratory rate 17 /min Delroy HOLDER [facility] 06-30-2024 13:21-0500 Systolic blood pressure 130 mm[Hg] Delroy HOLDER [facility] 07-23-2023 07:55-0500 Diastolic blood pressure 70 mm[Hg] Riley Beck MD Work Phone: [facility] 07-23-2023 07:55-0500 Heart rate 56 /min Riley Beck MD Work Phone: [facility] 07-23-2023 07:55-0500 SaO2% (BldA) [Mass fraction] 96 % Riley Beck MD Work Phone: [facility] 12-04-2023 07:55-0500 Systolic blood pressure 133 mm[Hg] Riley Beck MD Work Phone: 1(217)692-040254 [place] [address] 07-23-2023 07:40-0500 Body temperature 97.2 [degF] Riley Beck MD Work Phone: 1(369)844-080711 [place] [address] 07-23-2023 06:06-0500 Body height 182.9 cm Riley Beck MD Work Phone: 5(841)763-640711 [place] [address] 07-23-2023 06:06-0500 Body mass index (BMI) [Ratio] 28.48 kg/m2 Riley Beck MD Work Phone: 1(707)417-964211 [place] [address] 07-23-2023 06:06-0500 Body weight 95.25 kg Riley Beck MD Work Phone: 1(673)353-277711 [place] [address] 07-23-2023 06:06-0500 Respiratory rate 18 /min Riley Beck MD Work Phone: 9(362)829-372011 [place] [address] 07-16-2023 08:57-0500 Diastolic blood pressure 71 mm[Hg] Riley Beck MD Work Phone: 3(210)681-407811 [place] [address] 07-16-2023 08:57-0500 Heart rate 61 /min Riley Beck MD Work Phone: 7(985)391-551811 [place] [address] 07-16-2023 08:57-0500 Respiratory rate 16 /min Riley Beck MD Work Phone: 9(057)319-414111 [place] [address] 07-16-2023 08:57-0500 SaO2% (BldA) [Mass fraction] 99 % Riley Beck MD Work Phone: 4(290)910-480811 [place] [address] 07-16-2023 08:57-0500 Systolic blood pressure 114 mm[Hg] Riley Beck MD Work Phone: 6(586)293-896511 [place] [address] 07-16-2023 08:45-0500 Body temperature 97 [degF] Riley Beck MD Work Phone: 0(637)272-492311 [place] [address] 08-27-2022 07:11-0500 Body temperature 97.7 [degF] Tita Cihng DO Work Phone: [employer] 08-27-2022 07:11-0500 Diastolic blood pressure 76 mm[Hg] Tita Ching DO Work Phone: [facility] 08-27-2022 07:11-0500 Heart rate 67 /min Tita Ching DO Work Phone: [employer] 08-27-2022 07:11-0500 Respiratory rate 14 /min Tita Ching DO Work Phone: [employer] 08-27-2022 07:11-0500 SaO2% (BldA) [Mass fraction] 96 % Tita Ching DO Work Phone: [employer] 08-27-2022 07:11-0500 Systolic blood pressure 124 mm[Hg] Tita Ching DO Work Phone: [employer] 08-27-2022 03:07-0500 Body height 180.3 cm Tita Ching DO Work Phone: [employer] 08-27-2022 03:07-0500 Body mass index (BMI) [Ratio] 30.27 kg/m2 Tita Ching DO Work Phone: [employer] 08-27-2022 03:07-0500 Body weight 98.43 kg Tita Ching DO Work Phone: [employer] Encounters Encounter Date Encounter Type Care Provider Facility Start: 09-28-2025 ambulatory Delroy Gutierrezi ty:[facility] Start: 03-30-2025 End: 03-30-2025 ambulatory Delroy HOLDER Facility:[facility] Start: 03-30-2025 End: 03-30-2025 Patient encounter procedure Delroy HOLDER [facility] Start: 12-08-2024 ambulatory Delroymarlon HOLDER Facili ty:[id number] Start: 11-03-2024 End: 11-03-2024 ambulatory Delroymarlon HOLDER Facility:[id number] Start: 10-13-2024 End: 10-13-2024 ambulatory ELVIS Lorna VAL Facility:[facility] Start: 10-13-2024 End: 10-13-2024 Patient encounter procedure ELVIS JOSEPHRY [facility] Start: 10-06-2024 End: 10-06-2024 Lab Drop off Delroy R HOLDER [facility] Start: 10-06-2024 End: 10-06-2024 ambulatory Delroymarlon HOLDER Facility:[facility] Start: 10-06-2024 End: 10-06-2024 Patient encounter procedure Delroy HOLDER [facility] Start: 06-30-2024 End: 06-30-2024 ambulatory Delroy Miguel Ángel HOLDER Facility:[facility] Start: 06-30-2024 End: 06-30-2024 Patient encounter procedure Delroy HOLDER [facility] Start: 05-19-2024 ambulatory Delroymarlon HOLDER Facility :[facility] Start: 05-14-2024 ambulatory Delroy HOLDER Facility :[facility] [place] Start: 07-23-2023 End: 07-23-2023 ambulatory RILEY TEMO [facility] Start: 07-23-2023 End: 07-23-2023 Subsequent hospital visit by physician Riley Beck MD Work Phone: [facility] Comment on above: Age-related nuclear cataract, right eye Start: 07-16-2023 End: 07-16-2023 ambulatory RILEY TEMO [facility] Start: 07-16-2023 End: 07-16-2023 Subsequent hospital visit by physician Riley Beck MD Work Phone: [facility] Comment on above: Diabetes mellitus Start: 07-03-2023 ambulatory ANNEMARIE GUERRA [facility] Start: 07-03-2023 End: 07-03-2023 Office outpatient new 45 minutes Riley Beck MD Work Phone: [facility]hthalmology Comment on above: Age-related nuclear cataract, right eye (Primary Dx); Age-related nuclear cataract, left eye Start: 09-29-2022 ambulatory Shaggy Wallskendalshaggy Irene Facility:[facility] Start: 08-27-2022 End: 08-27-2022 ambulatory ROBYN BRAGG [facility] Start: 08-26-2022 End: 08-27-2022 Emergency department patient visit Tita U Ching DO Work Phone: [facility] MED SURG Comment on above: Syncope and collapse (Primary Dx) Start: 04-13-2021 End: 04-13-2021 Subsequent hospital visit by physician [facility] EKG Comment on above: ASHD (arteriosclerot ic heart disease); Heart palpitations Start: 05-17-2020 End: 05-17-2020 Subsequent hospital visit by physician Robyn Bragg [facility] Laboratory Comment on above: Nocturia Start: 02-07-2018 End: 02-10-2018 Ambulatory [facility] Start: 01-29-2018 End: 01-30-2018 Evaluation and management of inpatient [facility] Start: 01-22-2018 Encounter for other preprocedural examination [facility] Start: 01-22-2018 End: 01-27-2018 Patient encounter procedure [facility] Start: 06-30-2015 End: 11-27-2019 Patient encounter status [facility] Encounter for other preprocedural examination [facility] Procedures Date Procedure Procedure Detail Performing Clinician Start: 11-03-2024 Cystoscopy Delroy THOMASON Start: 08-27-2022 Rhythm ecg 1-3 leads w/interpretation & report Unknown Provider Result Start: 08-27-2022 BASIC METABOLIC PANE L W/ REFLEX TO MG FOR LOW K Levi Perea MD Work Phone: Start: 08-27-2022 Blood count complete auto&auto difrntl wbc Levi Perea MD Work Phone: Start: 08-27-2022 Assay of troponin quantitative Tita U Ching DO Work Phone: Start: 08-26-2022 Radiologic exam ches t single view Tita U Ching DO Work Phone: Start: 08-26-2022 Assay of ethanol Yousuf a U Ching DO Work Phone: Start: 08-26-2022 Comprehensive metabo lic panel Tita U Ching DO Work Phone: Start: 08-26-2022 Ecg routine ecg w/le ast 12 lds w/i&r Tita U Ching DO Work Phone: Start: 05-17-2020 Urnls dip stick/tabl et reagent auto microscopy Zachary Worrell Work Phone: Start: 02-07-2018 Cystography minimum 3 views rs&i JEFFRY RICKY Start: 02-07-2018 Njx cstograpy/voidin g urethrocstograpy JEFFRY RICKY Start: 01-30-2018 DISCHARGE PATIENT JEFFRY RICKY Start: 01-30-2018 Basic metabolic pane l calcium total JEFFRY RICKY Start: 01-30-2018 Blood count complete automated JEFFRY RICKY Start: 01-30-2018 INTAKE AND OUTPUT JEFFRY RICKY Start: 01-29-2018 Blood count complete automated JEFFRY RICKY Start: 01-29-2018 PREVIOUS SPECIMEN JEFFRY RICKY Start: 01-29-2018 AMBULATE PATIENT JEFFRY RICKY Start: 01-29-2018 DIET GENERAL JEFFRY RICKY Start: 01-29-2018 MORA/UROLOGY CARE MIRZ A RICKY Start: 01-29-2018 FULL CODE JEFFRY RICKY Start: 01-29-2018 INTAKE AND OUTPUT JEFFRY RICKY Start: 01-29-2018 NOTIFY PHYSICIAN (SPECIFY) JEFFRY RICKY Start: 01-29-2018 PLACE INTERMITTENT P NEUMATIC COMPRESSION DEVICE JEFFRY RICKY Start: 01-29-2018 REASON FOR NO CHEMIC AL VTE PROPHYLAXIS JEFFRY RICKY Start: 01-29-2018 VITAL SIGNS JEFFRY RICKY Start: 01-29-2018 Basic metabolic pane l calcium total JEFFRY RICKY Start: 01-29-2018 TRANSFER PATIENT JEFFRY RICKY Start: 01-29-2018 PATIENT STATUS (FROM ED OR OR/PROCEDURAL) JEFFRY RICKY Start: 01-29-2018 Culture bacterial quanttative colony count urine JEFFRY RICKY Start: 01-29-2018 SURGICAL PATHOLOGY MIRZ A RICKY Start: 01-22-2018 Blood count complete automated JEFFRY RICKY Start: 01-22-2018 BUN AND CREATININE MIRZ A RICKY Start: 01-22-2018 ELECTROLYTE PANEL JEFFRY RICKY Start: 01-22-2018 Glucose quantitative blood xcpt reagent strip JEFFRY RICKY Start: 01-22-2018 Culture bacterial quanttative colony count urine JEFFRY RICKY Start: 01-22-2018 EKG 12-LEAD JEFFRY RICKY Start: 02-05-2017 Colonoscopy Tita Martinez as DO Work Phone: Start: 01-29-2015 Placement of stent i n coronary artery Delroy HOLDER Start: 01-29-2015 Prostatectomy Delroy SIERRA Colonoscopy Delroy HOLDER Plan of Treatment Date Care Activity Detail Author Start: 02-05-2027 Screening for malign ant neoplasm of colon [facility] Start: 05-29-2024 Diabetic retinal exam Diabetic retin al exam [facility] Start: 08-27-2023 GFR test (Diabetes, CKD 3-4, OR last GFR 15-59) GFR test (Diabetes, CKD 3-4, OR last GFR 15-59) [facility] Start: 07-23-2023 End: 07-23-2023 Admission to same day surgery center 07/23/2023 7:30 AM EST - 07/23/2023 7:40 AM EST Surgery [facility] [address] [place] [address] Riley Beck MD [address] [place] [phone] EXTRACTION EXTRACAPSULAR CATARACT W/ IMPLANT (ECCE IOL)-RIGHT EYE [facility] Comment on above: EXTRACTION EXTRACAPS ULAR CATARACT W/ IMPLANT (ECCE IOL)-RIGHT EYE Start: 07-23-2023 Subsequent hospital visit by physician 07/23/2023 7:30 AM EST Hospital Encounter [facility] [address] [place] [address] Riley Beck MD [address] [place] [address] Age-related nuclear cataract, right eye [facility] Comment on above: Age-related nuclear cataract, right eye Start: 07-23-2023 End: 07-23-2023 Xcapsl ctrc rmvl insj io lens prosth w/o ecp [facility] Start: 07-16-2023 End: 07-16-2023 Xcapsl ctrc rmvl insj io lens prosth w/o ecp EXTRACTION EXTRACAPSULAR CATARACT W/ IMPLANT (ECCE IOL) Age-related nuclear cataract, left eye 07/16/2023 8:32 AM EST [facility] Start: 05-10-2023 Depression Screen Depression Screen [facility] Start: 05-10-2023 Diabetic foot examination Diabetic foot exam [facility] Start: 05-10-2023 Hemoglobin A1c measurement A1C test (Diabetic or Prediabetic) [facility] Start: 05-01-2023 Lipid panel Lipids [facility] Start: 04-20-2023 COVID-19 VACCINE ( season) COVID-19 VACCINE () [facility] Start: 11-08-2022 Annual Wellness Visi t (AWV) Annual Wellness Visit (AWV) [facility] Start: 11-08-2022 End: 11-08-2022 Patient encounter procedure 11/08/2022 Office Visit Internal Medicine Robyn Bragg MD [address] [place] [address], [place] [address] Robyn Bragg MD Start: 11-07-2022 Prostate specific antigen measurement Prostate Specific Antigen (PSA) Screening or Monitoring [facility] Start: 11-01-2022 DTaP/Tdap/Td vaccine (2 - Td or Tdap) DTaP/Tdap/Td vaccine (2 - Td or Tdap) [facility] Start: 11-01-2022 DTaP/Tdap/Td vaccine (2 - Td) DTaP/Tdap/Td vaccine (2 - Td) [place], [place] Start: 11-01-2022 Tetanus vaccination [facility] Start: 09-18-2022 End: 09-18-2022 Patient encounter procedure 09/18/2022 Office Visit Cardiology Shaggy Irene MD [address] [place] [address] [place] [address] [facility] Start: 10-26-2021 Lipid panel Lipid screen [facility] Work Phone: Start: 10-21-2021 COVID-19 Vaccine (4 - Booster for Moderna series) COVID-19 Vaccine (4 - Booster for Moderna series) [facility] Start: 08-04-2021 End: 08-04-2021 Patient encounter procedure 08/04/2021 Office Visit Cardiology Shaggy Irene MD [address] [place] [address] [place] [address] [facility] Start: 05-05-2021 Shingles Vaccine (2 of 3) Shingles Vaccine (2 of 3) [place], [place] Comment on above: Postponed from 09/23 (Unavailable) Start: 05-04-2021 End: 05-04-2021 Patient encounter procedure 05/04/2021 Office Visit Internal Medicine Robyn Bragg MD [address] [place] [address] Robyn Bragg MD Start: 04-20-2021 Influenza vaccination Flu vaccine (# 1) [facility] Phone: Start: 04-10-2021 Creatinine measurement Creatinine mo nitoring [place], [place] Start: 04-10-2021 HbA1c (Bld) [Mass fraction] A1C test (Diabetic or Prediabetic) [place], [place] Start: 04-10-2021 Hemoglobin A1c measurement A1C test (Diabetic or Prediabetic) [facility] Phone: Start: 04-10-2021 Lipid panel Lipid screen [place], [place] Start: 04-10-2021 Potassium monitoring Potassium monit oring [place], [place] Start: 03-28-2021 End: 03-28-2021 Office Visit 03/28/2021 Office Visit Urology Tayo Tarango MD [address], [address] [place] [address] [facility] Start: 03-25-2021 Prostate specific antigen measurement PSA counseling [place], [place] Start: 03-25-2021 Statin Therapy Statin Therapy [place], [place] Start: 11-02-2020 End: 11-02-2020 Office Visit 11/02/2020 Office Visit Internal Medicine Robyn Bragg MD [address] [place] [address] Robyn Bragg MD Start: 08-04-2020 End: 08-04-2020 Office Visit 08/04/2020 Office Visit Cardiology Shaggy Irene MD [address] [place] [phone] [facility] Start: 06-07-2020 End: 06-07-2020 Procedure visit 06/07/2020 Procedure visit Urology Tayo Tarango MD [address], [address] [place] [id number] [phone] [facility] Start: 05-21-2020 End: 05-21-2020 Nurse Only 05/21/2020 Nurse Only Internal Medicine Robyn Bragg MD Start: 04-20-2020 Influenza vaccination Flu vaccine (# 1) [place], [place] Start: 2019 Abdominal aortic aneurysm screening ABDOMINAL AORTIC ANEURYSM HIGH RISK SCREEN [facility] Start: 2019 Pneumococcal 65+ yea rs Vaccine (1 of 1 - PPSV23) Pneumococcal 65+ years Vaccine (1 of 1 - PPSV23) [place], [place] Start: 2004 Prostate specific antigen measurement PROSTATE CANCER SCREENING DISCUSSION [facility] Start: 1999 Screening for malign ant neoplasm of colon [facility] Start: 1994 Lipid panel LIPID SCREENING [facility] Start: 1972 Urine screening for protein Diabetic Alb to Cr ratio (uACR) test [facility] Start: 1954 Hepatitis C screening HEPATITI S C VIRUS SCREENING [facility] End: 08-31-2022 Basic Metabolic Panel w/ Reflex to MG Basic Metabolic Panel w/ Reflex to MG Lab Routine Daily for 5 Days starting 08/27/2022 until 08/31/2022, 1 completed [facility] [employer] Work Phone: Comment on above: Daily for 5 Days sta rting 08/27/2022 until 08/31/2022, 1 completed End: 08-31-2022 CBC W Auto Differential panel - Blood CBC auto differential Lab Routine Daily for 5 Days starting 08/27/2022 until 08/31/2022, 1 completed [facility] [employer] Phone: Comment on above: Daily for 5 Days sta rting 08/27/2022 until 08/31/2022, 1 completed End: 04-13-2021 Continuous cardiac monitoring, >2 up to 14 days Continuous cardiac monitoring, >2 up to 14 days Cardiac Services Routine ASHD (arteriosclerotic heart disease) Heart palpitations 1 Occurrences starting 04/13/2021 until 04/13/2021 [employer] Work Phone: Comment on above: 1 Occurrences starti ng 04/13/2021 until 04/13/2021 End: 05-17-2020 Culture, Urine Culture, Urine Microbiology Routine Nocturia 1 Occurrences starting 05/17/2020 until 05/17/2020 [facility] Comment on above: 1 Occurrences starti ng 05/17/2020 until 05/17/2020 Culture, Urine Culture, Urine Microbiology Routine Nocturia 05/17/2020 3:30 PM EDT [place] EKG 12 Lead EKG 12 Lead ECG Routine 08/26/2022 11:11 PM EST [employer] Work Phone: Oph bmtry prtl coher intrfrmtry io lens pwr [facility] [employer] [facility] Comment on above: Ordered: 07/03/2023 Oxygen therapy [[facility] Data Set] Initiate Oxygen Therapy Protocol Respiratory Care Routine Daily until discontinued starting 08/27/2022 [employer] Work Phone: Comment on above: Daily until disconti nued starting 08/27/2022 Xcapsl ctrc rmvl ins j io lens prosth w/o ecp [employer] [facility] Immunizations Immunization Date Immunization Notes Care Provider Margie linares 05-13-2024 influenza, unspecifi ed formulation Delroy HOLDER [facility] 05-31-2022 Influenza, FLUZONE ( age 65 y+), High Dose, 0.7mL Tita Ching DO Work Phone: [employer] Work Phone: 08-26-2021 COVID-19, PFIZER PUR PLE top, DILUTE for use, (age 12 y+), 30mcg/0.3mL Tita Ching DO Work Phone: [facility] Work Phone: 08-14-2021 zoster vaccine recombinant Tita Ching [employer] Work Phone: [employer] Work Phone: 06-08-2021 Influenza, FLUZONE ( age 65 y+), High Dose, 0.7mL Tita Ching DO Work Phone: [facility] Work Phone: 06-08-2021 influenza, high dose seasonal, preservative-free Tita Ching DO Work Phone: [facility] [employer] Work Phone: 06-08-2021 pneumococcal conjuga te vaccine, 13 valent Tita Ching DO Work Phone: [facility] [employer] Work Phone: 06-08-2021 zoster vaccine recombinant Tita Ching DO Work Phone: [facility] Phone: 12-17-2020 COVID-19, Moderna, P F, 100mcg/0.5mL [facility] [employer] Work Phone: 11-17-2020 COVID-19, Moderna, P F, 100mcg/0.5mL [facility] Work Phone: 05-29-2020 Seasonal, quadrivale nt, recombinant, injectable influenza vaccine, preservative free [facility] [employer] Work Phone: 05-21-2020 pneumococcal polysaccharide vaccine, 23 valent [facility] [employer] Work Phone: 05-22-2019 influenza, injectabl e, quadrivalent, contains preservative [facility], [place] 05-22-2019 influenza, injectabl e, quadrivalent, preservative free [facility], [place] 05-23-2018 influenza, injectabl e, quadrivalent, preservative free [facility], [place] 05-24-2017 influenza virus vacc ine, unspecified formulation [facility] [place] 05-24-2017 influenza, seasonal, injectable Robyn NEVES [facility] 05-25-2016 influenza virus vacc ine, unspecified formulation Robyn [facility] , [place] 05-25-2016 influenza, seasonal, injectable Robyn Bragg [facility] 07-29-2015 zoster vaccine, live Robyn Yemi [facility], [place] 06-03-2015 influenza virus vacc ine, unspecified formulation Robyn Bragg [facility] 11-01-2012 tetanus toxoid, redu latia diphtheria toxoid, and acellular pertussis vaccine, adsorbed Robyn [place], [place] Payers Date Payer Category Payer Private Health Insurance [id number] 2022 Medicare 2020 Unknown 2020 Medicare [id number] 2014 [id number] 1954 Unknown [id number] 1955 Unknown [id number] 2.16.8 [id number] 1955 Unknown [id number] 2.16.8 [id number] 1955 Unknown [id number] 2.16. [id number] 1955 Unknown [id number] 2.16.8 [id number] 1955 Unknown [id number] 2.16.8 [id number] 1955 Unknown [id number] 2.16.8 [id number] 1955 Unknown [id number] 2.16.8 [id number] 1955 Unknown [id number] 2.16.8 [id number] 1955 Unknown [id number] 2.16.8 [id number] 1955 Unknown [id number] 2.16.8 [id number] 1955 Unknown [id number] 2.16.8 [id number] 1955 Unknown [id number] 2.16.8 [id number] 1955 Unknown [id number] 2.16.8 [id number] Social History Date Type Detail Facility Start: 05-17-2020 End: 11-02-2020 Tobacco smoking status NHIS Light tobacco smoker [place] History of tobacco use [place]igar [place] Start: 05-17-2020 End: 07-16-2023 Tobacco use and exposure Current user [place] History of tobacco use Snuff [place] Start: 05-17-2020 End: 07-23-2023 Alcohol intake Current drinker of alcohol (finding) [place] Start: 04-30-2019 End: 05-10-2022 History SDOH Financial 5 [place] Start: 04-30-2019 End: 05-10-2022 History SDOH Food Worry 1 [place] Start: 04-30-2019 End: 11-07-2021 History SDOH Transport Med 2 [place] Start: 03-29-2020 Alcohol Comment BEER, WINE OR MIXED DRINKS occasionally [place] Start: 1955 Sex Assigned At Not on file [place] Start: 08-31-2020 History SDOH Social Connections Phone 99 [facility] [employer] [facility] Phone: Start: 08-31-2020 End: 11-07-2021 History SDOH Social Connections Living 3 [employer] Phone: Start: 05-10-2022 [facility] Phone: History of tobacco use Current smoker [employer] Phone: History of tobacco use Cigarette Smoker B ON [employer] Phone: Start: 05-10-2022 End: 07-23-2023 Cigarette pack-years [employer] Phone: Start: 11-07-2021 History SDOH Social Connections Phone 4 [employer] Phone: Start: 08-17-2022 End: 08-27-2022 Exposure to SARS-CoV-2 (event) Not sure [employer] Phone: Tobacco smoking stat [facility] Tobacco smoking consumption unknown [facility] Start: 07-16-2023 End: 07-23-2023 Gender identity Not on file [facility] Start: 07-16-2023 Tobacco smoking stat [facility] Never smoked tobacco [facility] History of tobacco use Chews Tobacco [facility] Start: 07-10-2023 Alcohol Comment oocasional [facility] Tobacco Cigar once a mon Tobacco Use:. Cigars, Household tobacco concerns: No. Yes [facility] Tobacco smoking status [facility] Sex Male (finding) [facility] Medical Equipment Procedure Code Equipment Code Equipment Origin al Text Equipment Identifier Dates Intraocular Lens [id number] Start: 07-16-2023 Lense [id number] Start: 07-23-2023 Functional Status Date Assessment Result Facility 10-06-2024 Functional Status N/A [facility] 06-30-2024 Functional Status N/A [facility] Clinical Notes 08-27-2022 to 03-30-2025 Brief Op Note - Riley Beck MD - 07/23/2023 7:44 AM ESTBrief Op Note - Riley Beck MD - 07/23/2023 7:44 AM ESTOp Note - Riley Beck MD - 07/23/2023 7:43 AM Caroline Rios RN - 07/16/2023 8:57 AM EST Note Date & Type Note Facility 03-30-2025 Hospital Discharge instructions Patient Education 03/30/2025 14:39:19 Urinary Incontinence Urinary Incontinence Urinary incontinence refers to a condition in which a person is unable to control where and when to pass urine. A person with this condition will urinate involuntarily. This means that the person urinates when he or she does not mean to. What are the causes? This condition may be caused by: Medicines. Infections. Constipation. Overactive bladder muscles. Weak bladder muscles. Weak pelvic floor muscles. These muscles provide support for the bladder, intestine, and, in women, the uterus. Enlarged prostate in men. The prostate is a gland near the bladder. When it gets too big, it can pinch the urethra. With the urethra blocked, the bladder can weaken and lose the ability to empty properly. Surgery. Emotional factors, such as anxiety, stress, or post-traumatic stress disorder (PTSD). Spinal cord injury, nerve injury, or other neurological conditions. Pelvic organ prolapse. This happens in women when organs move out of place and into the vagina. This movement can prevent the bladder and urethra from working properly. What increases the risk? The following factors may make you more likely to develop this condition: Age. The older you are, the higher the risk. Obesity. Being physically inactive. and childbirth. Menopause. Diseases that affect the nerves or spinal cord. Long-term, or chronic, coughing. This can increase pressure on the bladder and pelvic floor muscles. What are the signs or symptoms? Symptoms may vary depending on the type of urinary incontinence you have. They include: A sudden urge to urinate, and passing urine involuntarily before you can get to a bathroom (urge incontinence). Suddenly passing urine when doing activities that force urine to pass, such as coughing, laughing, exercising, or sneezing (stress incontinence). Needing to urinate often but urinating only a small amount, or constantly dribbling urine (overflow incontinence). Urinating because you cannot get to the bathroom in time due to a physical disability, such as arthritis or injury, or due to a communication or thinking problem, such as Alzheimer's disease (functional incontinence). How is this diagnosed? This condition may be diagnosed based on: Your medical history. A physical exam. Tests, such as: ?Urine tests. ?X-rays of your kidney and bladder. ?Ultrasound. ?CT scan. ?Cystoscopy. In this procedure, a health care provider inserts a tube with a light and camera (cystoscope) through the urethra and into the bladder to check for problems. ?Urodynamic testing. These tests assess how well the bladder, urethra, and sphincter can store and release urine. There are different types of urodynamic tests, and they vary depending on what the test is measuring. To help diagnose your condition, your health care provider may recommend that you keep a log of when you urinate and how much you urinate. How is this treated? Treatment for this condition depends on the type of incontinence that you have and its cause. Treatment may include: Lifestyle changes, such as: ?Quitting smoking. ?Maintaining a healthy weight. ?Staying active. Try to get 150 minutes of moderate-intensity exercise every week. Ask your health care provider which activities are safe for you. ?Eating a healthy diet. ?Avoid high-fat foods, like fried foods. ?Avoid refined carbohydrates like white bread and white rice. ?Limit how much alcohol and caffeine you drink. ?Increase your fiber intake. Healthy sources of fiber include beans, whole grains, and fresh fruits and vegetables. Behavioral changes, such as: ?Pelvic floor muscle exercises. ?Bladder training, such as lengthening the amount of time between bathroom breaks, or using the bathroom at regular intervals. ?Using techniques to suppress bladder urges. This can include distraction techniques or controlled breathing exercises. Medicines, such as: ?Medicines to relax the bladder muscles and prevent bladder spasms. ?Medicines to help slow or prevent the growth of a man's prostate. ?Botox injections. These can help relax the bladder muscles. Treatments, such as: ?Using pulses of electricity to help change bladder reflexes (electrical nerve stimulation). ?For women, using a medical economics consultant to prevent urine leaks. This is a small, tampon-like, disposable device that is inserted into the urethra. ?Injecting collagen or carbon beads (bulking agents) into the urinary sphincter. These can help thicken tissue and close the bladder opening. ?Surgery. Follow these instructions at home: Lifestyle Limit alcohol and caffeine. These can fill your bladder quickly and irritate it. Keep yourself clean to help prevent odors and skin damage. Ask your health care provider about special skin creams and cleansers that can protect the skin from urine. Consider wearing pads or adult diapers. Make sure to change them regularly, and always change them right after experiencing incontinence. General instructions Take mmtb-vdc-zhftvqo and prescription medicines only as told by your health care provider. Use the bathroom about every 3 4 hours, even if you do not feel the need to urinate. Try to empty your bladder completely every time. After urinating, wait a minute. Then try to urinate again. Make sure you are in a relaxed position while urinating. If your incontinence is caused by nerve problems, keep a log of the medicines you take and the times you go to the bathroom. Keep all follow-up visits. This is important. Where to find more information [employer] of Diabetes and Digestive and Kidney Diseases: www.niddk.nih.gov [place] [employer]: www.urologyhealth.org Contact a health care provider if: You have pain that gets worse. Your incontinence gets worse. Get help right away if: You have a fever or chills. You are unable to urinate. You have redness in your groin area or down your legs. Summary Urinary incontinence refers to a condition in which a person is unable to control where and when to pass urine. This condition may be caused by medicines, infection, weak bladder muscles, weak pelvic floor muscles, enlargement of the prostate (in men), or surgery. Factors such as older age, obesity, and childbirth, menopause, neurological diseases, and chronic coughing may increase your risk for developing this condition. Types of urinary incontinence include urge incontinence, stress incontinence, overflow incontinence, and functional incontinence. This condition is usually treated first with lifestyle and behavioral changes, such as quitting smoking, eating a healthier diet, and doing regular pelvic floor exercises. Other treatment options include medicines, bulking agents, medical devices, electrical nerve stimulation, or surgery. This information is not intended to replace advice given to you by your health care provider. Make sure you discuss any questions you have with your health care provider. Document Revised: 03/11/2021 Document Reviewed: 03/11/2021 [employer] Patient Education 2023 [employer]. Follow Up Care 02/06/2025 08:38:39 With:GERMAN ARIAS, Delroy Del Rosario, URL Address: [address] [place] [address] [place] [address] When: Unknown [facility] 03-30-2025 Note Patient Education Urology Urinary Incontinence Urinary incontinence refers to a condition in which a person is unable to control where and when to pass urine. A person with this condition will urinate involuntarily. This means that the person urinates when he or she does not mean to. What are the causes? This condition may be caused by: ??? Medicines. ??? Infections. ??? Constipation. ??? Overactive bladder muscles. ??? Weak bladder muscles. ??? Weak pelvic floor muscles. These muscles provide support for the bladder, intestine, and, in women, the uterus. ??? Enlarged prostate in men. The prostate is a gland near the bladder. When it gets too big, it can pinch the urethra. With the urethra blocked, the bladder can weaken and lose the ability to empty properly. ??? Surgery. ??? Emotional factors, such as anxiety, stress, or post-traumatic stress disorder (PTSD). ??? Spinal cord injury, nerve injury, or other neurological conditions. ??? Pelvic organ prolapse. This happens in women when organs move out of place and into the vagina. This movement can prevent the bladder and urethra from working properly. What increases the risk? The following factors may make you more likely to develop this condition: ??? Age. The older you are, the higher the risk. ??? Obesity. ??? Being physically inactive. ??? and childbirth. ??? Menopause. ??? Diseases that affect the nerves or spinal cord. ??? Long-term, or chronic, coughing. This can increase pressure on the bladder and pelvic floor muscles. What are the signs or symptoms? Symptoms may vary depending on the type of urinary incontinence you have. They include: ??? A sudden urge to urinate, and passing urine involuntarily before you can get to a bathroom (urge incontinence). ??? Suddenly passing urine when doing activities that force urine to pass, such as coughing, laughing, exercising, or sneezing (stress incontinence). ??? Needing to urinate often but urinating only a small amount, or constantly dribbling urine (overflow incontinence). ??? Urinating because you cannot get to the bathroom in time due to a physical disability, such as arthritis or injury, or due to a communication or thinking problem, such as Alzheimer's disease (functional incontinence). How is this diagnosed? This condition may be diagnosed based on: ??? Your medical history. ??? A physical exam. ??? Tests, such as: ? Urine tests. ? X-rays of your kidney and bladder. ? Ultrasound. ? CT scan. ? Cystoscopy. In this procedure, a health care provider inserts a tube with a light and camera (cystoscope) through the urethra and into the bladder to check for problems. ? Urodynamic testing. These tests assess how well the bladder, urethra, and sphincter can store and release urine. There are different types of urodynamic tests, and they vary depending on what the test is measuring. To help diagnose your condition, your health care provider may recommend that you keep a log of when you urinate and how much you urinate. How is this treated? Treatment for this condition depends on the type of incontinence that you have and its cause. Treatment may include: ??? Lifestyle changes, such as: ? Quitting smoking. ? Maintaining a healthy weight. ? Staying active. Try to get 150 minutes of moderate-intensity exercise every week. Ask your health care provider which activities are safe for you. ? Eating a healthy diet. ? Avoid high-fat foods, like fried foods. ? Avoid refined carbohydrates like white bread and white rice. ? Limit how much alcohol and caffeine you drink. ? Increase your fiber intake. Healthy sources of fiber include beans, whole grains, and fresh fruits and vegetables. ??? Behavioral changes, such as: ? Pelvic floor muscle exercises. ? Bladder training, such as lengthening the amount of time between bathroom breaks, or using the bathroom at regular intervals. ? Using techniques to suppress bladder urges. This can include distraction techniques or controlled breathing exercises. ??? Medicines, such as: ? Medicines to relax the bladder muscles and prevent bladder spasms. ? Medicines to help slow or prevent the growth of a man's prostate. ? Botox injections. These can help relax the bladder muscles. ??? Treatments, such as: ? Using pulses of electricity to help change bladder reflexes (electrical nerve stimulation). ? For women, using a medical economics consultant to prevent urine leaks. This is a small, tampon-like, disposable device that is inserted into the urethra. ? Injecting collagen or carbon beads (bulking agents) into the urinary sphincter. These can help thicken tissue and close the bladder opening. ? Surgery. Follow these instructions at home: Lifestyle ??? Limit alcohol and caffeine. These can fill your bladder quickly and irritate it. ??? Keep yourself clean to help prevent odors and skin damage. Ask your health care provider (more content not included)... [facility] 10-06-2024 Evaluation + Plan note Diagnostic Tests PendingUrine Culture 10/06/24 [facility] 10-06-2024 Hospital Discharge instructions Patient Education 10/06/2024 11:04:43 Urinary Tract Infection, Adult Urinary Tract Infection, Adult A urinary tract infection (UTI) is an infection of any part of the urinary tract. The urinary tract includes the kidneys, ureters, bladder, and urethra. These organs make, store, and get rid of urine in the body. An upper UTI affects the ureters and kidneys. A lower UTI affects the bladder and urethra. What are the causes? Most urinary tract infections are caused by bacteria in your genital area around your urethra, where urine leaves your body. These bacteria grow and cause inflammation of your urinary tract. What increases the risk? You are more likely to develop this condition if: You have a urinary catheter that stays in place. You are not able to control when you urinate or have a bowel movement (incontinence). You are female and you: ?Use a spermicide or diaphragm for control. ?Have low estrogen levels. ?Are . You have certain genes that increase your risk. You are sexually active. You take antibiotic medicines. You have a condition that causes your flow of urine to slow down, such as: ?An enlarged prostate, if you are male. ?Blockage in your urethra. ?A kidney stone. ?A nerve condition that affects your bladder control (neurogenic bladder). ?Not getting enough to drink, or not urinating often. You have certain medical conditions, such as: ?Diabetes. ?A weak disease-fighting system (immunesystem). ?Sickle cell disease. ?Gout. ?Spinal cord injury. What are the signs or symptoms? Symptoms of this condition include: Needing to urinate right away (urgency). Frequent urination. This may include small amounts of urine each time you urinate. Pain or burning with urination. Blood in the urine. Urine that smells bad or unusual. Trouble urinating. Cloudy urine. Vaginal discharge, if you are female. Pain in the abdomen or the lower back. You may also have: Vomiting or a decreased appetite. Confusion. Irritability or tiredness. A fever or chills. Diarrhea. The first symptom in older adults may be confusion. In some cases, they may not have any symptoms until the infection has worsened. How is this diagnosed? This condition is diagnosed based on your medical history and a physical exam. You may also have other tests, including: Urine tests. Blood tests. Tests for STIs (sexually transmitted infections). If you have had more than one UTI, a cystoscopy or imaging studies may be done to determine the cause of the infections. How is this treated? Treatment for this condition includes: Antibiotic medicine. Icsg-ukv-yzqjwuh medicines to treat discomfort. Drinking enough water to stay hydrated. If you have frequent infections or have other conditions such as a kidney stone, you may need to see a health care provider who specializes in the urinary tract (urologist). In rare cases, urinary tract infections can cause sepsis. Sepsis is a life-threatening condition that occurs when the body responds to an infection. Sepsis is treated in the hospital with IV antibiotics, fluids, and other medicines. Follow these instructions at home: Medicines Take lgqs-zwg-btulenj and prescription medicines only as told by your health care provider. If you were prescribed an antibiotic medicine, take it as told by your health care provider. Do not stop using the antibiotic even if you start to feel better. General instructions Make sure you: ?Empty your bladder often and completely. Do not hold urine for long periods of time. ?Empty your bladder after sex. ?Wipe from front to back after urinating or having a bowel movement if you are female. Use each tissue only one time when you wipe. Drink enough fluid to keep your urine pale yellow. Keep all follow-up visits. This is important. Contact a health care provider if: Your symptoms do not get better after 1 2 days. Your symptoms go away and then return. Get help right away if: You have severe pain in your back or your lower abdomen. You have a fever or chills. You have nausea or vomiting. Summary A urinary tract infection (UTI) is an infection of any part of the urinary tract, which includes the kidneys, ureters, bladder, and urethra. Most urinary tract infections are caused by bacteria in your genital area. Treatment for this condition often includes antibiotic medicines. If you were prescribed an antibiotic medicine, take it as told by your health care provider. Do not stop using the antibiotic even if you start to feel better. Keep all follow-up visits. This is important. This information is not intended to replace advice given to you by your health care provider. Make sure you discuss any questions you have with your health care provider. Document Revised: 03/13/2021 Document Reviewed: 03/18/2021 [employer] Patient Education 2023 [employer]. 10/06/2024 10:55:34 Cystoscopy Cystoscopy Cystoscopy is a procedure that is used to help diagnose and sometimes treat conditions that affect the lower urinary tract. The lower urinary tract includes the bladder and the urethra. The urethra is the tube that drains urine from the bladder. Cystoscopy is done using a thin, tube-shaped instrument with a light and camera at the end (cystoscope). The cystoscope may be hard or flexible, depending on the goal of the procedure. The cystoscope is inserted through the urethra, into the bladder. Cystoscopy may be recommended if you have: Urinary tract infections that keep coming back. Blood in the urine (hematuria). An inability to control when you urinate (urinary incontinence) or an overactive bladder. Unusual cells found in a urine sample. A blockage in the urethra, such as a urinary stone. Painful urination. An abnormality in the bladder found during an intravenous pyelogram (IVP) or CT scan. Cystoscopy may also be done to remove a sample of tissue to be examined under a microscope (biopsy). Tell a health care provider about: Any allergies you have. All medicines you are taking, including vitamins, herbs, eye drops, creams, and epyj-yum-xjvwtlv medicines. Any problems you or family members have had with anesthetic medicines. Any blood disorders you have. Any surgeries you have had. Any medical conditions you have. Whether you are or may be . What are the risks? Generally, this is a safe procedure. However, problems may occur, including: Infection. Bleeding. Allergic reactions to medicines. Damage to other structures or organs. What happens before the procedure? Medicines Ask your health care provider about: Changing or stopping your regular medicines. This is especially important if you are taking diabetes medicines or blood thinners. Taking medicines such as aspirin and ibuprofen. These medicines can thin your blood. Do not take these medicines unless your health care provider tells you to take them. Taking jskp-qgz-spufjii medicines, vitamins, herbs, and supplements. Tests You may have an exam or testing, such as: X-rays of the bladder, urethra, or kidneys. CT scan of the abdomen or pelvis. Urine tests to check for signs of infection. General instructions Follow instructions from your health care provider about eating or drinking restrictions. Ask your health care provider what steps will be taken to help prevent infection. These steps may include: ?Washing skin with a germ-killing soap. ?Taking antibiotic medicine. Plan to have a responsible adult take you home from the hospital or clinic. What happens during the procedure? You will be given one or more of the following: ?A medicine to help you relax (sedative). ?A medicine to numb the area (local anesthetic). The area around the opening of your urethra will be cleaned. The cystoscope will be passed through your urethra into your bladder. Germ-free (sterile) fluid will flow through the cystoscope to fill your bladder. The fluid will stretch your bladder so that your health care provider can clearly examine your bladder hemphill. Your doctor will look at the urethra and bladder. Your doctor may take a biopsy or remove stones. The cystoscope will be removed, and your bladder will be emptied. The procedure may vary among health care providers and hospitals. What can I expect after the procedure? After the procedure, it is common to have: Some soreness or pain in your abdomen and urethra. Urinary symptoms. These include: ?Mild pain or burning when you urinate. Pain should stop within a few minutes after you urinate. This may last for up to 1 week. ?A small amount of blood in your urine for several days. ?Feeling like you need to urinate but producing only a small amount of urine. Follow these instructions at home: Medicines Take hhcr-vsr-mzacyup and prescription medicines only as told by your health care provider. If you were prescribed an antibiotic medicine, take it as told by your health care provider. Do not stop taking the antibiotic even if you start to feel better. General instructions Return to your normal activities as told by your health care provider. Ask your health care provider what activities are safe for you. If you were given a sedative during the procedure, it can affect you for several hours. Do not drive or operate machinery until your health care provider says that it is safe. Watch for any blood in your urine. If the amount of blood in your urine increases, call your health care provider. Follow instructions from your health care provider about eating or drinking restrictions. If a tissue sample was removed for testing (biopsy) during your procedure, it is up to you to get your test results. Ask your health care provider, or the department that is doing the test, when your results will be ready. Drink enough fluid to keep your urine pale yellow. Keep all follow-up visits. This is important. Contact a health care provider if: You have pain that gets worse or does not get better with medicine, especially pain when you urinate. You have trouble urinating. You have more blood in your urine. Get help right away if: You have blood clots in your urine. You have abdominal pain. You have a fever or chills. You are unable to urinate. Summary Cystoscopy is a procedure that is used to help diagnose and sometimes treat conditions that affect the lower urinary tract. Cystoscopy is done using a thin, tube-shaped instrument with a light and camera at the end. After the procedure, it is common to have some soreness or pain in your abdomen and urethra. Watch for any blood in your urine. If the amount of blood in your urine increases, call your health care provider. If you were prescribed an antibiotic medicine, take it as told by your health care provider. Do not stop taking the antibiotic even if you start to feel better. This information is not intended to replace advice given to you by your health care provider. Make sure you discuss any questions you have with your health care provider. Document Revised: 04/19/2022 Document Reviewed: 03/18/2021 [employer] Patient Education 2023 [employer]. Follow Up Care 06/30/2024 14:24:49 With:GERMAN ARIAS, Delroy Del Rosario, URL Address: [facility] [address], [place] [address]- [phone] When: Unknown [facility] [place] 10-06-2024 Note Patient Education Obstetrics and Gynecology Urinary Tract Infection, Adult A urinary tract infection (UTI) is an infection of any part of the urinary tract. The urinary tract includes the kidneys, ureters, bladder, and urethra. These organs make, store, and get rid of urine in the body. An upper UTI affects the ureters and kidneys. A lower UTI affects the bladder and urethra. What are the causes? Most urinary tract infections are caused by bacteria in your genital area around your urethra, where urine leaves your body. These bacteria grow and cause inflammation of your urinary tract. What increases the risk? You are more likely to develop this condition if: ??? You have a urinary catheter that stays in place. ??? You are not able to control when you urinate or have a bowel movement (incontinence). ??? You are female and you: ? Use a spermicide or diaphragm for control. ? Have low estrogen levels. ? Are . ??? You have certain genes that increase your risk. ??? You are sexually active. ??? You take antibiotic medicines. ??? You have a condition that causes your flow of urine to slow down, such as: ? An enlarged prostate, if you are male. ? Blockage in your urethra. ? A kidney stone. ? A nerve condition that affects your bladder control (neurogenic bladder). ? Not getting enough to drink, or not urinating often. ??? You have certain medical conditions, such as: ? Diabetes. ? A weak disease-fighting system (immunesystem). ? Sickle cell disease. ? Gout. ? Spinal cord injury. What are the signs or symptoms? Symptoms of this condition include: ??? Needing to urinate right away (urgency). ??? Frequent urination. This may include small amounts of urine each time you urinate. ??? Pain or burning with urination. ??? Blood in the urine. ??? Urine that smells bad or unusual. ??? Trouble urinating. ??? Cloudy urine. ??? Vaginal discharge, if you are female. ??? Pain in the abdomen or the lower back. You may also have: ??? Vomiting or a decreased appetite. ??? Confusion. ??? Irritability or tiredness. ??? A fever or chills. ??? Diarrhea. The first symptom in older adults may be confusion. In some cases, they may not have any symptoms until the infection has worsened. How is this diagnosed? This condition is diagnosed based on your medical history and a physical exam. You may also have other tests, including: ??? Urine tests. ??? Blood tests. ??? Tests for STIs (sexually transmitted infections). If you have had more than one UTI, a cystoscopy or imaging studies may be done to determine the cause of the infections. How is this treated? Treatment for this condition includes: ??? Antibiotic medicine. ??? Ohuj-ynq-ptpcdqv medicines to treat discomfort. ??? Drinking enough water to stay hydrated. If you have frequent infections or have other conditions such as a kidney stone, you may need to see a health care provider who specializes in the urinary tract (urologist). In rare cases, urinary tract infections can cause sepsis. Sepsis is a life-threatening condition that occurs when the body responds to an infection. Sepsis is treated in the hospital with IV antibiotics, fluids, and other medicines. Follow these instructions at home: Medicines ??? Take iugn-hys-greelei and prescription medicines only as told by your health care provider. ??? If you were prescribed an antibiotic medicine, take it as told by your health care provider. Do not stop using the antibiotic even if you start to feel better. General instructions ??? Make sure you: ? Empty your bladder often and completely. Do not hold urine for long periods of time. ? Empty your bladder after sex. ? Wipe from front to back after urinating or having a bowel movement if you are female. Use each tissue only one time when you wipe. ??? Drink enough fluid to keep your urine pale yellow. ??? Keep all follow-up visits. This is important. Contact a health care provider if: ??? Your symptoms do not get better after 1?2 days. ??? Your symptoms go away and then return. Get help right away if: ??? You have severe pain in your back or your lower abdomen. ??? You have a fever or chills. ??? You have nausea or vomiting. Summary ??? A urinary tract infection (UTI) is an infection of any part of the urinary tract, which includes the kidneys, ureters, bladder, and urethra. ??? Most urinary tract infections are caused by bacteria in your genital area. ??? Treatment for this condition often includes antibiotic medicines. ??? If you were prescribed an antibiotic medicine, take it as told by your health care provider. Do not stop using the antibiotic even if you start to feel better. ??? Keep all follow-up visits. This is important. This information is not intended to replace advice given to you by your health care provider. Make sure you di (more content not included)... [facility] 06-30-2024 Hospital Discharge instructions Patient Education 06/30/2024 14:16:56 Urinary Incontinence Urinary Incontinence Urinary incontinence refers to a condition in which a person is unable to control where and when to pass urine. A person with this condition will urinate involuntarily. This means that the person urinates when he or she does not mean to. What are the causes? This condition may be caused by: Medicines. Infections. Constipation. Overactive bladder muscles. Weak bladder muscles. Weak pelvic floor muscles. These muscles provide support for the bladder, intestine, and, in women, the uterus. Enlarged prostate in men. The prostate is a gland near the bladder. When it gets too big, it can pinch the urethra. With the urethra blocked, the bladder can weaken and lose the ability to empty properly. Surgery. Emotional factors, such as anxiety, stress, or post-traumatic stress disorder (PTSD). Spinal cord injury, nerve injury, or other neurological conditions. Pelvic organ prolapse. This happens in women when organs move out of place and into the vagina. This movement can prevent the bladder and urethra from working properly. What increases the risk? The following factors may make you more likely to develop this condition: Age. The older you are, the higher the risk. Obesity. Being physically inactive. and childbirth. Menopause. Diseases that affect the nerves or spinal cord. Long-term, or chronic, coughing. This can increase pressure on the bladder and pelvic floor muscles. What are the signs or symptoms? Symptoms may vary depending on the type of urinary incontinence you have. They include: A sudden urge to urinate, and passing urine involuntarily before you can get to a bathroom (urge incontinence). Suddenly passing urine when doing activities that force urine to pass, such as coughing, laughing, exercising, or sneezing (stress incontinence). Needing to urinate often but urinating only a small amount, or constantly dribbling urine (overflow incontinence). Urinating because you cannot get to the bathroom in time due to a physical disability, such as arthritis or injury, or due to a communication or thinking problem, such as Alzheimer's disease (functional incontinence). How is this diagnosed? This condition may be diagnosed based on: Your medical history. A physical exam. Tests, such as: ?Urine tests. ?X-rays of your kidney and bladder. ?Ultrasound. ?CT scan. ?Cystoscopy. In this procedure, a health care provider inserts a tube with a light and camera (cystoscope) through the urethra and into the bladder to check for problems. ?Urodynamic testing. These tests assess how well the bladder, urethra, and sphincter can store and release urine. There are different types of urodynamic tests, and they vary depending on what the test is measuring. To help diagnose your condition, your health care provider may recommend that you keep a log of when you urinate and how much you urinate. How is this treated? Treatment for this condition depends on the type of incontinence that you have and its cause. Treatment may include: Lifestyle changes, such as: ?Quitting smoking. ?Maintaining a healthy weight. ?Staying active. Try to get 150 minutes of moderate-intensity exercise every week. Ask your health care provider which activities are safe for you. ?Eating a healthy diet. ?Avoid high-fat foods, like fried foods. ?Avoid refined carbohydrates like white bread and white rice. ?Limit how much alcohol and caffeine you drink. ?Increase your fiber intake. Healthy sources of fiber include beans, whole grains, and fresh fruits and vegetables. Behavioral changes, such as: ?Pelvic floor muscle exercises. ?Bladder training, such as lengthening the amount of time between bathroom breaks, or using the bathroom at regular intervals. ?Using techniques to suppress bladder urges. This can include distraction techniques or controlled breathing exercises. Medicines, such as: ?Medicines to relax the bladder muscles and prevent bladder spasms. ?Medicines to help slow or prevent the growth of a man's prostate. ?Botox injections. These can help relax the bladder muscles. Treatments, such as: ?Using pulses of electricity to help change bladder reflexes (electrical nerve stimulation). ?For women, using a medical economics consultant to prevent urine leaks. This is a small, tampon-like, disposable device that is inserted into the urethra. ?Injecting collagen or carbon beads (bulking agents) into the urinary sphincter. These can help thicken tissue and close the bladder opening. ?Surgery. Follow these instructions at home: Lifestyle Limit alcohol and caffeine. These can fill your bladder quickly and irritate it. Keep yourself clean to help prevent odors and skin damage. Ask your health care provider about special skin creams and cleansers that can protect the skin from urine. Consider wearing pads or adult diapers. Make sure to change them regularly, and always change them right after experiencing incontinence. General instructions Take yyhn-hhj-qrddhiw and prescription medicines only as told by your health care provider. Use the bathroom about every 3 4 hours, even if you do not feel the need to urinate. Try to empty your bladder completely every time. After urinating, wait a minute. Then try to urinate again. Make sure you are in a relaxed position while urinating. If your incontinence is caused by nerve problems, keep a log of the medicines you take and the times you go to the bathroom. Keep all follow-up visits. This is important. Where to find more information [employer] of Diabetes and Digestive and Kidney Diseases: www.niddk.nih.gov [place] [employer]: www.urologyhealth.org Contact a health care provider if: You have pain that gets worse. Your incontinence gets worse. Get help right away if: You have a fever or chills. You are unable to urinate. You have redness in your groin area or down your legs. Summary Urinary incontinence refers to a condition in which a person is unable to control where and when to pass urine. This condition may be caused by medicines, infection, weak bladder muscles, weak pelvic floor muscles, enlargement of the prostate (in men), or surgery. Factors such as older age, obesity, and childbirth, menopause, neurological diseases, and chronic coughing may increase your risk for developing this condition. Types of urinary incontinence include urge incontinence, stress incontinence, overflow incontinence, and functional incontinence. This condition is usually treated first with lifestyle and behavioral changes, such as quitting smoking, eating a healthier diet, and doing regular pelvic floor exercises. Other treatment options include medicines, bulking agents, medical devices, electrical nerve stimulation, or surgery. This information is not intended to replace advice given to you by your health care provider. Make sure you discuss any questions you have with your health care provider. Document Revised: 03/11/2021 Document Reviewed: 03/11/2021 [employer] Patient Education 2023 [employer]. Follow Up Care 05/19/2024 10:15:32 With:GERMAN ARIAS, Delroy Del Rosario, URL Address: [facility] [address], [place] [address] [phone] When: Unknown Comments:3 mos (new med) [facility] 06-30-2024 Note Urology Office/Clini c Note Chief Complaint referral for urinary incontinence HPI Staff 68 yo male referred by Dr. Robyn Bragg for hx of prostate CA, urinary incontinence, and ED. Initial path - Woodridge 7 (3+4) GG2. S/p RALP 01/29/[address] Jeffry Bacon. Final path ~[place] 7 (3+4) GG2. Tumor is organ confined. Margins free of tumor. Benign lymph nodes, neg for metastatic carcinoma. PSA: 06/30/15 - 3.25 06/06/16 - 4.47 06/27/17 - 5.02 12/18/17 - 6.320 03/08/18 - 0.020 06/11/18 - <0.014 12/07/18 - <0.01 03/18/19 - <0.01 09/23/19 - <0.01 03/25/20 - <0.01 05/07/21 - <0.01 11/07/21 - <0.01 11/08/22 - <0.02 11/12/23 - <0.02 Appears that primary care has been monitoring PSAs. Pt states that his incontinence is the worst when he is sitting. States that when he is sitting in his recliner he will begin to leak. Dysuria: denies Incomplete bladder emptying: denies Hematuria: denies Frequency: more than half the time Urgency: about half the time Nocturia: 3-4x Stream: good steady stream Leaking: yes mostly when sitting Post void dripping: Wearing pads/ Depends: pads changes 2x daily Urge incontinence: denies Stress incontinence: denies Incontinence without Sensory Awareness: states that there are times he does not realize he is leaking Abdominal pain: denies Flank pain: denies Sexual complaints: denies History of Present Illness Tests reviewed: reviewed UA, PVR, referral records, PSAs, path report I have reviewed the previous health record information and history for this patient from external providers. I have reviewed and verified the staff HPI to be accurate for this encounter. Review of Systems PHQ Score Initial Depression Screen Score: 0 SCORE ROS - Provider Constitutional: denies weight loss, denies hot flashes. Eyes: denies eye problems. Gastrointestinal: denies nausea, denies vomiting. Cardiovascular: denies chest pain or angina. Integumentary: no dryness Musculoskeletal: denies musculoskeletal symptoms. ENMT: denies otolaryngeal symptoms. Respiratory: no shortness of breath. Heme/Lymph: denies easy bleeding tendency, denies easy bruising tendency. Psychiatric: no confusion, no anxiety. Genitourinary: See HPI. Physical Exam Vitals & Measurements T: 37 ???C(Temporal Artery) HR: 69(Peripheral) RR: 17 BP: 130/78 HT: 71 in HT: 180 cm WT: 97.7 kg WT: 215.391 lb BMI: 30.15 General Appearance: alert, no distress, well nourished, well developed male. Assessment/Plan Yg is a 68 yo male new pt referred by Dr. Robyn Bragg for hx of prostate CA, urinary incontinence, and ED. 1. Prostate cancer (C61: Malignant neoplasm of prostate) PSA: 06/30/15 - 3.25 06/06/16 - 4.47 06/27/17 - 5.02 12/18/17 - 6.320 03/08/18 - 0.020 06/11/18 - <0.014 12/07/18 - <0.01 03/18/19 - <0.01 09/23/19 - <0.01 03/25/20 - <0.01 09/18/21 - <0.01 11/07/21 - <0.01 11/08/22 - <0.02 11/12/23 - <0.02 09/20/17 - Path showed Woodridge 7 (3+4), GG2 involving 6% of one core and Caio 6 (3+3), GG1 involving 1% of one core. No perineural invasion. No lymph invasion. No extraprostatic extension. S/p RALP 01/29/[address] Jeffry Bacon at [facility]. Path ~Caio 7 (3+4) GG2. Tumor is organ confined, involves <50% of left lobe. Margins free of tumor. Benign lymph nodes, neg for metastatic carcinoma. States he followed with Dr. Tarango in [place] for 2 yrs following RALP but did not like the care he received in that office. Discussed PSA level is stable and undetectable. Will cont to monitor. 2. Incontinence without sensory awareness (N39.42: Incontinence without sensory awareness) IPSS 10-11. UA today negative for blood and infection. PVR 48 mL. Urinary issues ongoing since RALP. [place] he voided a lot prior to this. Goes through 2 thick pads per day, saturated. Good stream. No FADI. States he leaks when he is in his recliner chair. Sometimes wakes up wet. Thinks he tried Oxybutynin but had no sx improvement. Discussed alternative medication options of Myrbetriq or Gemtesa which have less SEs than anticholinergics but do not always have good insurance coverage. Pt states he is willing to try this. -Start Myrbetriq ER 50mg qd. Rx sent to [facility]. Recommended GoodRx. Follow-up With When Contact Information GERMAN ARIAS, Delroy Del Rosario, URL [facility] [address], [place] [address]- [phone] Additional Instructions: 3 mos (new med) Patient Education Urinary Incontinence I, Erlinda Jose, personally scribed for Dr. Holder on 06/30/2024 14:21:57. . Documentation recorded by the scribe, Erlinda Jose, accurately reflects the services(s) I performed and decisions made by me. Authenticated by Dr. Holder on 06/30/2024 14:23:39. Problem List/Past Medical History Ongoing Incontinence without sensory awareness Myocardial infarction (heart attack-[place]) Prostate cancer Historical No qualifying data Proce (more content not included)... [facility] Comment on above: Result Comment: Elec tronically Signed By: Delroy HOLDER MD\.br\Date and Time Signed: 06/30/24 14:23 EST\.br\Electronically Co-Signed By: Erlinda Jose\.br\Date and Time Co-Signed: 06/30/24 14:22 EST 06-30-2024 Note Patient Education Urology Urinary Incontinence Urinary incontinence refers to a condition in which a person is unable to control where and when to pass urine. A person with this condition will urinate involuntarily. This means that the person urinates when he or she does not mean to. What are the causes? This condition may be caused by: ??? Medicines. ??? Infections. ??? Constipation. ??? Overactive bladder muscles. ??? Weak bladder muscles. ??? Weak pelvic floor muscles. These muscles provide support for the bladder, intestine, and, in women, the uterus. ??? Enlarged prostate in men. The prostate is a gland near the bladder. When it gets too big, it can pinch the urethra. With the urethra blocked, the bladder can weaken and lose the ability to empty properly. ??? Surgery. ??? Emotional factors, such as anxiety, stress, or post-traumatic stress disorder (PTSD). ??? Spinal cord injury, nerve injury, or other neurological conditions. ??? Pelvic organ prolapse. This happens in women when organs move out of place and into the vagina. This movement can prevent the bladder and urethra from working properly. What increases the risk? The following factors may make you more likely to develop this condition: ??? Age. The older you are, the higher the risk. ??? Obesity. ??? Being physically inactive. ??? and childbirth. ??? Menopause. ??? Diseases that affect the nerves or spinal cord. ??? Long-term, or chronic, coughing. This can increase pressure on the bladder and pelvic floor muscles. What are the signs or symptoms? Symptoms may vary depending on the type of urinary incontinence you have. They include: ??? A sudden urge to urinate, and passing urine involuntarily before you can get to a bathroom (urge incontinence). ??? Suddenly passing urine when doing activities that force urine to pass, such as coughing, laughing, exercising, or sneezing (stress incontinence). ??? Needing to urinate often but urinating only a small amount, or constantly dribbling urine (overflow incontinence). ??? Urinating because you cannot get to the bathroom in time due to a physical disability, such as arthritis or injury, or due to a communication or thinking problem, such as Alzheimer's disease (functional incontinence). How is this diagnosed? This condition may be diagnosed based on: ??? Your medical history. ??? A physical exam. ??? Tests, such as: ? Urine tests. ? X-rays of your kidney and bladder. ? Ultrasound. ? CT scan. ? Cystoscopy. In this procedure, a health care provider inserts a tube with a light and camera (cystoscope) through the urethra and into the bladder to check for problems. ? Urodynamic testing. These tests assess how well the bladder, urethra, and sphincter can store and release urine. There are different types of urodynamic tests, and they vary depending on what the test is measuring. To help diagnose your condition, your health care provider may recommend that you keep a log of when you urinate and how much you urinate. How is this treated? Treatment for this condition depends on the type of incontinence that you have and its cause. Treatment may include: ??? Lifestyle changes, such as: ? Quitting smoking. ? Maintaining a healthy weight. ? Staying active. Try to get 150 minutes of moderate-intensity exercise every week. Ask your health care provider which activities are safe for you. ? Eating a healthy diet. ? Avoid high-fat foods, like fried foods. ? Avoid refined carbohydrates like white bread and white rice. ? Limit how much alcohol and caffeine you drink. ? Increase your fiber intake. Healthy sources of fiber include beans, whole grains, and fresh fruits and vegetables. ??? Behavioral changes, such as: ? Pelvic floor muscle exercises. ? Bladder training, such as lengthening the amount of time between bathroom breaks, or using the bathroom at regular intervals. ? Using techniques to suppress bladder urges. This can include distraction techniques or controlled breathing exercises. ??? Medicines, such as: ? Medicines to relax the bladder muscles and prevent bladder spasms. ? Medicines to help slow or prevent the growth of a man's prostate. ? Botox injections. These can help relax the bladder muscles. ??? Treatments, such as: ? Using pulses of electricity to help change bladder reflexes (electrical nerve stimulation). ? For women, using a medical economics consultant to prevent urine leaks. This is a small, tampon-like, disposable device that is inserted into the urethra. ? Injecting collagen or carbon beads (bulking agents) into the urinary sphincter. These can help thicken tissue and close the bladder opening. ? Surgery. Follow these instructions at home: Lifestyle ??? Limit alcohol and caffeine. These can fill your bladder quickly and irritate it. ??? Keep yourself clean to help prevent odors and skin damage. Ask your health care provider (more content not included)... [facility] 07-23-2023 Surgery Postoperative evaluation and management note POST OPERATIVE/PROCEDURE NOTE Yg Galvez ([id number]) SURGEON Surgeon(s) and Role: * Riley Beck MD - Primary NEWS CORRESPONDENT None ANESTHESIOLOGIST NEW GRAD RN: Marni Marcus APRN-NEW GRAD RN SURGICAL STAFF Custodial Officer: Ana Laura Ludwig RN Scrub Person: Nuvia Nicole PROCEDURE PERFORMED Procedure(s) (LRB): EXTRACTION EXTRACAPSULAR CATARACT W/ IMPLANT (ECCE IOL)-RIGHT EYE (Right) PRIMARY CLOSURE N/A ANESTHESIA (type of) Topical/MAC ESTIMATED BLOOD LOSS None DRAINS None BLOOD PRODUCTS None FLUIDS No intake or output data in the 24 hours ending 07/23/23 0744 PRE OPERATIVE DIAGNOSIS Age-related nuclear cataract, right eye [H25.11] POST OPERATIVE DIAGNOSIS Post-Op Diagnosis Codes: * Age-related nuclear cataract, right eye [H25.11] FINDINGS No significant abnormalities CONDITION OF PATIENT good COMPLICATIONS None GRAFTS AND/OR IMPLANTS See OR Nursing Documentation SPECIMENS No specimen sent * No specimens in log * Riley Beck MD July 23, 2023 7:44 AM [facility] 07-23-2023 Miscellaneous Notes POST OPERATIVE/PROCEDURE NOTE Yg Galvez ([id number]) SURGEON Surgeon(s) and Role: * Riley Beck MD - Primary NEWS CORRESPONDENT None ANESTHESIOLOGIST NEW GRAD RN: Marni Marcus APRN-NEW GRAD RN SURGICAL STAFF Custodial Officer: Ana Laura Ludwig RN Scrub Person: Nuvia Nicole PROCEDURE PERFORMED Procedure(s) (LRB): EXTRACTION EXTRACAPSULAR CATARACT W/ IMPLANT (ECCE IOL)-RIGHT EYE (Right) PRIMARY CLOSURE N/A ANESTHESIA (type of) Topical/MAC ESTIMATED BLOOD LOSS None DRAINS None BLOOD PRODUCTS None FLUIDS No intake or output data in the 24 hours ending 07/23/23 0744 PRE OPERATIVE DIAGNOSIS Age-related nuclear cataract, right eye [H25.11] POST OPERATIVE DIAGNOSIS Post-Op Diagnosis Codes: * Age-related nuclear cataract, right eye [H25.11] FINDINGS No significant abnormalities CONDITION OF PATIENT good COMPLICATIONS None GRAFTS AND/OR IMPLANTS See OR Nursing Documentation SPECIMENS No specimen sent * No specimens in log * Riley Beck MD July 23, 2023 7:44 AM PREOPERATIVE DIAGNOSIS: Cataract right eye. POSTOPERATIVE DIAGNOSIS: Cataract right eye. PROCEDURE PERFORMED: Phacoemulsification with intraocular lens implant right eye. SURGEON: Riley Beck MD. NEWS CORRESPONDENT: None. ANESTHESIA: Topical. DISPOSITION: To recovery room in stable condition. INDICATIONS The Patient has a visually significant cataract. After the discussion of all risks, indications, benefits and alternatives, informed consent was obtained. PROCEDURE The patient was taken to the operating room. After an appropriate time-out, the right eye was marked with a pen. The patient was then prepped and draped in the usual sterile fashion for ocular surgery. A Q-tip and 75 x 15 blade was used to create an superotemporal clear corneal paracentesis. Approximately 0.5 mL of 1% preservative-free lidocaine was applied topically. Viscoat was then used to deepen the anterior chamber. A keratome was used to create a clear corneal incision temporally. A cystotome and Utrata forceps were used to create a continuous curvilinear capsulorrhexis. BSS on a Casanova cannula was used to hydrodissect and hydrodelineate the cataractous lens. Phacoemulsification for 3.04 CDE was used to remove the cataractous lens. Residual cortex was removed with the irrigation-aspiration handpiece. The anterior chamber and the capsular bag were deepened with Provisc. An SY60WF 17.5 diopter lens was ejected into the capsular bag. Viscoelastic was removed with the irrigation-aspiration handpiece. 0.1 cc of preservative free ancef was injected into the anterior chamber. The wounds were hydrated with BSS, tested and found to be watertight. The patient's face was cleaned and dried and a drop of Vigamox and Iopidine were given. An eye shield was placed. The patient tolerated the procedure well and will follow up tomorrow morning in the eye clinic. documented in this encounter [facility] 07-23-2023 Surgery Postoperative evaluation and management note PREOPERATIVE DIAGNOSIS: Cataract right eye. POSTOPERATIVE DIAGNOSIS: Cataract right eye. PROCEDURE PERFORMED: Phacoemulsification with intraocular lens implant right eye. SURGEON: Riley Beck MD. NEWS CORRESPONDENT: None. ANESTHESIA: Topical. DISPOSITION: To recovery room in stable condition. INDICATIONS The Patient has a visually significant cataract. After the discussion of all risks, indications, benefits and alternatives, informed consent was obtained. PROCEDURE The patient was taken to the operating room. After an appropriate time-out, the right eye was marked with a pen. The patient was then prepped and draped in the usual sterile fashion for ocular surgery. A Q-tip and 75 x 15 blade was used to create an superotemporal clear corneal paracentesis. Approximately 0.5 mL of 1% preservative-free lidocaine was applied topically. Viscoat was then used to deepen the anterior chamber. A keratome was used to create a clear corneal incision temporally. A cystotome and Utrata forceps were used to create a continuous curvilinear capsulorrhexis. BSS on a Casanova cannula was used to hydrodissect and hydrodelineate the cataractous lens. Phacoemulsification for 3.04 CDE was used to remove the cataractous lens. Residual cortex was removed with the irrigation-aspiration handpiece. The anterior chamber and the capsular bag were deepened with Provisc. An SY60WF 17.5 diopter lens was ejected into the capsular bag. Viscoelastic was removed with the irrigation-aspiration handpiece. 0.1 cc of preservative free ancef was injected into the anterior chamber. The wounds were hydrated with BSS, tested and found to be watertight. The patient's face was cleaned and dried and a drop of Vigamox and Iopidine were given. An eye shield was placed. The patient tolerated the procedure well and will follow up tomorrow morning in the eye clinic. [facility] 07-23-2023 History and physical note CHIEF COMPLAINT: Presenting for clearance for eye surgery. Patient complains of blurred vision from visually significant cataract. HISTORY OF PRESENT ILLNESS: Pre op clearance for eye surgery REVIEW OF SYSTEMS: No change from outpatient eval day. PHYSICAL EXAM: Physical Exam Constitutional: Patient is oriented to person, place, and time and in no distress. HENT: Head: Normocephalic and atraumatic. Eyes: Conjunctivae and extraocular motions are normal. Pupils are reactive to light. Cataract is present Pulmonary/Chest: Effort normal Neurological: alert and oriented to person, place, and time. Mental Status Oriented to person, place, and time. Cranial Nerves CN III, IV, Pupils are reactive to light. Extraocular motions are normal. Relevant pre-operative testing and/or labwork has been completed and reviewed. Results are normal, stable. Medical history and medications unchanged from consultation day: 07/03/23 ASSESSMENT/IMPRESSION: Cleared for surgery PLAN: eye surgery [facility] [employer] Work Phone: 07-23-2023 History and physical note CHIEF COMPLAINT: Presenting for clearance for eye surgery. Patient complains of blurred vision from visually significant cataract. HISTORY OF PRESENT ILLNESS: Pre op clearance for eye surgery REVIEW OF SYSTEMS: No change from outpatient eval day. PHYSICAL EXAM: Physical Exam Constitutional: Patient is oriented to person, place, and time and in no distress. HENT: Head: Normocephalic and atraumatic. Eyes: Conjunctivae and extraocular motions are normal. Pupils are reactive to light. Cataract is present Pulmonary/Chest: Effort normal Neurological: alert and oriented to person, place, and time. Mental Status Oriented to person, place, and time. Cranial Nerves CN III, IV, Pupils are reactive to light. Extraocular motions are normal. Relevant pre-operative testing and/or labwork has been completed and reviewed. Results are normal, stable. Medical history and medications unchanged from consultation day: 07/03/23 ASSESSMENT/IMPRESSION: Cleared for surgery PLAN: eye surgery documented in this encounter [facility] 07-16-2023 Nurse Note Discharge instructions reviewed with patient and his ; verbalized understanding and copy given to patient. It is best if you have a responsible adult with you for the next 24 hours. documented in this encounter [facility] 07-16-2023 Nurse Surgical operation note Discharge instructions reviewed with patient and his ; verbalized understanding and copy given to patient. It is best if you have a responsible adult with you for the next 24 hours. [facility] 07-16-2023 Surgery Postoperative evaluation and management note POST OPERATIVE/PROCEDURE NOTE Yg Galvez ([id number]) SURGEON Surgeon(s) and Role: * Riley Beck MD - Primary NEWS CORRESPONDENT None ANESTHESIOLOGIST NEW GRAD RN: Latha Mazariegos APRN-NEW GRAD RN SURGICAL STAFF Custodial Officer: Mimi Estrada RN PROCEDURE PERFORMED Procedure(s) (LRB): EXTRACTION EXTRACAPSULAR CATARACT W/ IMPLANT (ECCE IOL)-LEFT EYE (Left) PRIMARY CLOSURE N/A ANESTHESIA (type of) Topical/MAC ESTIMATED BLOOD LOSS None DRAINS None BLOOD PRODUCTS None FLUIDS No intake or output data in the 24 hours ending 07/16/23 0850 PRE OPERATIVE DIAGNOSIS Age-related nuclear cataract, left eye [H25.12] POST OPERATIVE DIAGNOSIS Post-Op Diagnosis Codes: * Age-related nuclear cataract, left eye [H25.12] FINDINGS No significant abnormalities CONDITION OF PATIENT good COMPLICATIONS None GRAFTS AND/OR IMPLANTS See OR Nursing Documentation SPECIMENS No specimen sent * No specimens in log * Riley Beck MD July 16, 2023 8:50 AM [facility] 07-16-2023 Miscellaneous Notes POST OPERATIVE/PROCEDURE NOTE Yg Galvez ([id number]) SURGEON Surgeon(s) and Role: * Riley Beck MD - Primary NEWS CORRESPONDENT None ANESTHESIOLOGIST NEW GRAD RN: Latha Mazariegos APRN-NEW GRAD RN SURGICAL STAFF Custodial Officer: Mimi Estrada RN PROCEDURE PERFORMED Procedure(s) (LRB): EXTRACTION EXTRACAPSULAR CATARACT W/ IMPLANT (ECCE IOL)-LEFT EYE (Left) PRIMARY CLOSURE N/A ANESTHESIA (type of) Topical/MAC ESTIMATED BLOOD LOSS None DRAINS None BLOOD PRODUCTS None FLUIDS No intake or output data in the 24 hours ending 07/16/23 0850 PRE OPERATIVE DIAGNOSIS Age-related nuclear cataract, left eye [H25.12] POST OPERATIVE DIAGNOSIS Post-Op Diagnosis Codes: * Age-related nuclear cataract, left eye [H25.12] FINDINGS No significant abnormalities CONDITION OF PATIENT good COMPLICATIONS None GRAFTS AND/OR IMPLANTS See OR Nursing Documentation SPECIMENS No specimen sent * No specimens in log * Riley Beck MD July 16, 2023 8:50 AM PREOPERATIVE DIAGNOSIS: Cataract left eye. POSTOPERATIVE DIAGNOSIS: Cataract left eye. PROCEDURE PERFORMED: Phacoemulsification with intraocular lens implant left eye. SURGEON: Riley Beck MD. NEWS CORRESPONDENT: None. ANESTHESIA: Topical. DISPOSITION: To recovery room in stable condition. INDICATIONS The Patient has a visually significant cataract. After the discussion of all risks, indications, benefits and alternatives, informed consent was obtained. PROCEDURE The patient was taken to the operating room. After an appropriate time-out, the left eye was marked with a pen. The patient was then prepped and draped in the usual sterile fashion for ocular surgery. A Q-tip and 75 x 15 blade was used to create an inferotemporal clear corneal paracentesis. Approximately 0.5 mL of 1% preservative-free lidocaine was applied topically. Viscoat was then used to deepen the anterior chamber. A keratome was used to create a clear corneal incision temporally. A cystotome and Utrata forceps were used to create a continuous curvilinear capsulorrhexis. BSS on a Casanova cannula was used to hydrodissect and hydrodelineate the cataractous lens. Phacoemulsification for 3.67 CDE was used to remove the cataractous lens. Residual cortex was removed with the irrigation-aspiration handpiece. The anterior chamber and the capsular bag were deepened with Provisc. An SY60WF 18.5 diopter lens was ejected into the capsular bag and centered appropriately. Viscoelastic was removed with the irrigation-aspiration handpiece. 0.1 cc of preservative free ancef was injected into the anterior chamber. The wounds were hydrated with BSS, tested and found to be watertight. The patient's face was cleaned and dried and a drop of Vigamox and Iopidine were given. An eye shield was placed. The patient tolerated the procedure well and will follow up tomorrow morning in the eye clinic. documented in this encounter [facility] 07-16-2023 Surgery Postoperative evaluation and management note PREOPERATIVE DIAGNOSIS: Cataract left eye. POSTOPERATIVE DIAGNOSIS: Cataract left eye. PROCEDURE PERFORMED: Phacoemulsification with intraocular lens implant left eye. SURGEON: Riley Beck MD. NEWS CORRESPONDENT: None. ANESTHESIA: Topical. DISPOSITION: To recovery room in stable condition. INDICATIONS The Patient has a visually significant cataract. After the discussion of all risks, indications, benefits and alternatives, informed consent was obtained. PROCEDURE The patient was taken to the operating room. After an appropriate time-out, the left eye was marked with a pen. The patient was then prepped and draped in the usual sterile fashion for ocular surgery. A Q-tip and 75 x 15 blade was used to create an inferotemporal clear corneal paracentesis. Approximately 0.5 mL of 1% preservative-free lidocaine was applied topically. Viscoat was then used to deepen the anterior chamber. A keratome was used to create a clear corneal incision temporally. A cystotome and Utrata forceps were used to create a continuous curvilinear capsulorrhexis. BSS on a Casanova cannula was used to hydrodissect and hydrodelineate the cataractous lens. Phacoemulsification for 3.67 CDE was used to remove the cataractous lens. Residual cortex was removed with the irrigation-aspiration handpiece. The anterior chamber and the capsular bag were deepened with Provisc. An SY60WF 18.5 diopter lens was ejected into the capsular bag and centered appropriately. Viscoelastic was removed with the irrigation-aspiration handpiece. 0.1 cc of preservative free ancef was injected into the anterior chamber. The wounds were hydrated with BSS, tested and found to be watertight. The patient's face was cleaned and dried and a drop of Vigamox and Iopidine were given. An eye shield was placed. The patient tolerated the procedure well and will follow up tomorrow morning in the eye clinic. [facility] 07-16-2023 History and physical note CHIEF COMPLAINT: Presenting for clearance for eye surgery. Patient complains of blurred vision from visually significant cataract. HISTORY OF PRESENT ILLNESS: Pre op clearance for eye surgery REVIEW OF SYSTEMS: No change from outpatient . PHYSICAL EXAM: Physical Exam Constitutional: Patient is oriented to person, place, and time and in no distress. HENT: Head: Normocephalic and atraumatic. Eyes: Conjunctivae and extraocular motions are normal. Pupils are reactive to light. Cataract is present Pulmonary/Chest: Effort normal Neurological: alert and oriented to person, place, and time. Mental Status Oriented to person, place, and time. Cranial Nerves CN III, IV, Pupils are reactive to light. Extraocular motions are normal. Relevant pre-operative testing and/or labwork has been completed and reviewed. Results are normal, stable. Medical history and medications unchanged from consultation day: 07/03/23 ASSESSMENT/IMPRESSION: Cleared for surgery PLAN: eye surgery [facility] Work Phone: 07-16-2023 History and physical note CHIEF COMPLAINT: Presenting for clearance for eye surgery. Patient complains of blurred vision from visually significant cataract. HISTORY OF PRESENT ILLNESS: Pre op clearance for eye surgery REVIEW OF SYSTEMS: No change from outpatient ev day. PHYSICAL EXAM: Physical Exam Constitutional: Patient is oriented to person, place, and time and in no distress. HENT: Head: Normocephalic and atraumatic. Eyes: Conjunctivae and extraocular motions are normal. Pupils are reactive to light. Cataract is present Pulmonary/Chest: Effort normal Neurological: alert and oriented to person, place, and time. Mental Status Oriented to person, place, and time. Cranial Nerves CN III, IV, Pupils are reactive to light. Extraocular motions are normal. Relevant pre-operative testing and/or labwork has been completed and reviewed. Results are normal, stable. Medical history and medications unchanged from consultation day: 07/03/23 ASSESSMENT/IMPRESSION: Cleared for surgery PLAN: eye surgery documented in this encounter [facility] 07-03-2023 History of Present illness Narrative REASON FOR VISIT Chief Complaint Blurred Vision HISTORY OF PRESENT ILLNESS HPI Blurred Vision Laterality: both eyes Onset: gradual Quality: blurred Severity: moderate Frequency: constantly Context: distance vision, near vision, reading and driving Course: gradually worsening Comments Referred by Charlie for cataract eval OU. Lasik- neg Diabetes- positive Flomax- positive Note- patient has a distrust of doctors Last edited by Leslie Mcconnell on 07/03/2023 8:52 AM. Allergies, medications & history reviewed & updated by Leslie Mcconnell REVIEW OF SYSTEMS See attached hard copy of ROS REASON FOR VISIT Chief Complaint Blurred Vision HISTORY OF PRESENT ILLNESS HPI Blurred Vision Laterality: both eyes Onset: gradual Quality: blurred Severity: moderate Frequency: constantly Context: distance vision, near vision, reading and driving Course: gradually worsening Comments Referred by Charlie for cataract eval OU. Lasik- neg Diabetes- positive Flomax- positive Note- patient has a distrust of doctors Last edited by Leslie Mcconnell on 07/03/2023 8:52 AM. Allergies, medications & history reviewed & updated by Leslie Mcconnell REVIEW OF SYSTEMS See attached hard copy of ROS I personally saw and examined the patient, confirmed the findings of his/her exam, discussed the above with the patient, and formulated the plan of care. Age-related nuclear cataract, bilateral Assessment and Plan: Cataract bilateral eye -- Pt interested in cataract surgery. Risks, indications, benefits, and alternatives have been discussed, and informed consent has been obtained. Plan to aim for [place] with the following anesthesia: topical Patient declines use of premium lenses. Reason for surgery: Yg Galvez complains of the inability to drive, read. IOL Master (and/or A scan) Interpretation/Results: OD: 17.5 OS: 18.5 Notes: OS then OD. Dr Guerra referral. Consider Malyugan Ring. Manifest (MR): Comments: Charlie OD OS Sphere +1.00 +1.50 Cylinder Sphere -0.25 [place] 110 Dist VA 20/20- 20/30- Add Near VA Visual Acuity Visual Acuity (Snellen - Linear) Right Left Dist cc 20/25 -2 20/30 +2 Correction: Glasses Brightness Acuity Testing (BAT): Off Low Med High OD: 20/70 OS: 20/50 Comments: There may be other eye diseases that are a cause of the decreased visual function but in the context of the cataract, visual function is expected to improve once the cataract is removed. If vision is not expected to improve, the indication for surgery is to improve visualization of the posterior segment. For patients with a best corrected VA of 20/40 or better, BAT testing shows a 2 line decrease in VA If cataract is complex, documented findings support miosis, weak or absent lens support structures, or cataract characteristics that prevent appropriate assessment of the lens capsule. Patient is aware of COVID risks and precautions and agrees to go forward with surgery. COVID-19 SURGICAL [employer] Elective Procedure Stoplight Flag [] RED [] YELLOW [x] GREEN Disease Factors 5 4 3 2 1 Impact of 2wk delay in DISEASE outcome []Significantly worse []Moderately worse []Slightly worse [x]Unchanged []Improved Impact of 2wk delay in SURGICAL difficulty/risk []Significantly worse []Moderately worse [x]Slightly worse []Unchanged []Improved Impact of 6wk delay in DISEASE outcome []Significantly worse []Moderately worse [x]Slightly worse []Unchanged []Improved Impact of 6wk delay in SURGICAL difficulty/risk []Significantly worse [x]Moderately worse []Slightly worse []Unchanged []Improved Progression of symptoms since cancellation (if applicable) []Significantly worse [x]Moderately worse []Slightly worse []Unchanged []Improved documented in this encounter [facility] 08-27-2022 History of Present illness Narrative Pt ambulated out of facility to private car. Discharge instructions provided to patient and his . All questions answered. Will take out to private vehicle once dressed Patient informed that we do not have Brilinta and will have to bring home supply in. He is going to wait to see if he will be discharged today. Denies any needs. Stated he is very tired and just wants some rest Patient asleep in bed. Easily awoken. VS and assessment completed. Orthostatic Bps completed at this time. Denies any pain. Stated he passed out in a chair last night. I didn't fall. Plan of care gone over with patient. He was given some briefs, stated he does have some issues with incontinence. Expander at bedside to complete admission assessment, navigator and vital signs. Pt arrived to floor via wheelchair. Pt transfered independently. Shift assessment, vital signs and addmission navigator complete, see flow sheet for details. Pt stated pain level is 0/10. Pt denies any other needs at this time. Call light and bedside table within reach. Will continue to monitor. documented in this encounter [facility] Phone: 08-27-2022 Hospital Discharge instructions Fernanda Guerra - 08/27/2022 12:24 PM EST Good nutrition is important when healing from an illness, injury, or surgery. Follow any nutrition recommendations given to you during your hospital stay. If you were given an oral nutrition supplement while in the hospital, continue to take this supplement at home. You can take it with meals, in-between meals, and/or before bedtime. These supplements can be purchased at most local grocery stores, pharmacies, and [employer]. If you have any questions about your diet or nutrition, call the hospital and ask for the dietitian. Diabetic diet Drink 20 oz bottle of Gatorade-Zero daily documented in this encounter [facility] Phone: 08-27-2022 Hospital course Narrative Images from the original note were not included. Levi Perea M.D. Internal Medicine Discharge Summary Patient ID: Yg Galvez [id number] Admission date: 08/26/2022 Discharge date: 08/27/2022 Admitting Physician: Robyn Bragg MD Primary Care Physician: Robyn Bragg MD Primary Discharge Diagnoses: Patient Active Problem List Diagnosis Date Noted Syncope and collapse 08/27/2022 Type 2 diabetes mellitus without complication - controlled with A1c 6.3% on 05/10/22 05/10/2022 ASHD (arteriosclerotic heart disease) / PTCA NSTEMI January 2018 02/18/2018 Mixed hyperlipidemia 01/01/2018 Essential hypertension 11/13/2016 Additional Diagnoses: Diagnosis Date Colon disorder 01/08/2018 INFECTION VIRAL VS BACTERIAL TREATED WITH CLEAR LIQUID DIET--RESOLVED Hyperlipidemia Hypertension 2017 Hypothyroidism 2008 Pneumonia 2010 Prostate cancer (HCC) 09/2017 Pulmonary embolism (HCC) 2010 QUESTIONABLE DX-TREATED WITH LOVENOX THEN COUMADIN X 6 MONTHS NO PROBLEMS SINCE Snores NEVER DX WITH SLEEP APNEA Wears glasses READING Hospital Course: Yg Galvez is a 66 y.o. male who was admitted for Syncope and collapse. He states he was playing cards at a friends house and had 3 shots of whiskey. He states he started to feel hot and the next thing he knew his friends were telling him he passed out for about 30 seconds and they called the ambulance. He had vomited on himself. EMS was activated and by the time squad arrived he was alert and oriented. He felt fine in the ER and didn't want to stay, but did agree to overnight observation. This morning he feels fine still and wants to go home. He ambulated in his room this AM without any lightheadedness. He denies any chest pain or palpitations. He states he drinks 16 oz of water with his pills every morning and a couple bottles of water during the day. He did have 1 previous syncopal episode which occurred shortly after being dx'd with Covid He was deemed medically stable for discharge and was amenable to the discharge plan. Discharge Exam: GEN: Awake, alert and oriented x3. EYES: EOMI, pupils equal NECK: Supple. No lymphadenopathy. No carotid bruit CVS: regular rate and rhythm, no audible murmur PULM: CTA, no wheezes, rales or rhonchi, no acute respiratory distress ABD: Bowels sounds normal. Abdomen is soft. No distention. no tenderness to palpation. EXT: no edema bilaterally . No calf tenderness. NEURO: Moves all extremities. Motor and sensory are grossly intact SKIN: No rashes. No skin lesions. Consultants: none Procedures: none Complications: none Significant Diagnostic Studies: Recent Labs 08/26/22231308/27/22 0540 WBC 10.9 8.7 RBC 4.56 4.00* HGB 14.5 12.9* HCT 41.9 36.7* MCV 91.9 91.8 RDW 12.4 12.5 PLT 251 216 Recent Labs 08/27/22 0540 SEGS 73* NEUTROABS 6.30 LYMPHOPCT 17* LYMPHSABS 1.49 MONOPCT 8 EOSRELPCT 1 BASOPCT 1 IMMGRAN 0 Recent Labs 08/26/22231308/27/22 0540 GLUCOSE 177* 162* Recent Labs 08/26/22231308/27/22 0540 BUN 30* 22 CREATININE 1.01 0.93 NA 137 139 K 3.9 3.8 CL 100 107 MG 2.0 -- CALCIUM 9.9 8.9 ANIONGAP 12 8* CO2 25 24 PROT 7.5 -- LABALBU 4.1 -- BILITOT 0.3 -- ALKPHOS 83 -- AST 18 -- ALT 17 -- Recent Labs 08/26/22 2314 08/27/22 0119 TROPHS 14 13 Radiology/Imaging: XR CHEST PORTABLE Final Result Normal examination. Discharge Condition: Stable Disposition: Discharge home Discharge Medications: Medication List CHANGE how you take these medications amLODIPine 5 MG tablet Commonly known as: NORVASC Take 1 tablet by mouth in the morning. What changed: when to take this atorvastatin 20 MG tablet Commonly known as: LIPITOR Take 1 tablet by mouth in the morning. What changed: when to take this losartan-hydroCHLOROthiazide 100-12.5 MG per tablet Commonly known as: HYZAAR Take 1 tablet by mouth daily What changed: when to take this CONTINUE taking these medications aspirin 81 MG tablet levothyroxine 50 MCG tablet Commonly known as: SYNTHROID Take 1 tablet by mouth Daily metFORMIN 500 MG extended release tablet Commonly known as: GLUCOPHAGE-XR Take 1 tablet by mouth daily (with breakfast) SF 5000 Plus 1.1 % Crea Generic drug: SODIUM FLUORIDE (DENTAL GEL) ticagrelor 60 MG Tabs tablet Commonly known as: Brilinta Take 1 tablet by mouth 2 times daily Patient Instructions: Activity: Activity as tolerated without restrictions Diet: diabetic diet, encouraged to drink 20 oz bottle of Gatorade-Zero daily Wound Care: None needed Follow up with Robyn Bragg MD in 1-2 weeks CORE MEASURES on Discharge (if applicable) ZEFERINO/ARB in CHF: N/A ASA in NC: N/A Statin in NC: N/A Statin in CVA: N/A Antiplatelet in CVA: N/A Total time spent on discharge services: 40 minutes Including the following activities: Evaluation and Management of patient Discussion with patient and/or surrogate about current care plan Coordination with Case Management and/or Commercial Lines Assistant Coordination of care with Consultants (if applicable) Coordination of care with Receiving Facility Physician (if applicable) Completion of DME forms (if applicable) Preparation of Discharge Summary Preparation of Medication Reconciliation Preparation of Discharge Prescriptions Signed: Levi Perea MD, M.D. 08/27/2022 12:15 PM documented in this encounter [employer] Phone: Evaluation + Plan note Future Appointments Appointment Date:10/06/2024 10:30:00 AM Scheduled Provider:Delroy HOLDER MD Location:[facility] Appointment Type:URO Office Visit [facility] Evaluation + Plan note Future Appointments Appointment Date:09/28/2025 09:45:00 AM Scheduled Provider:Delroy HOLDER MD Location:[facility] Appointment Type:URO Office Visit [facility] [employer] Evaluation note Diagnosis ASHD (arteriosclerotic heart disease) Coronary atherosclerosis of unspecified type of vessel, stebbins or graft Heart palpitations Palpitations documented in this encounter [employer] Phone: [email or web address] note* Diagnosis Syncope and collapse- Primary Syncope and collapse documented in this encounter [employer] Phone: [email or web address] note* Diagnosis Age-related nuclear cataract, right eye- Primary Age-related nuclear cataract, left eye documented in this encounter relocality SystemEvaluation note* Diagnosis Diabetes mellitus Type II or unspecified type diabetes mellitus without mention of complication, not stated as uncontrolled Age-related nuclear cataract, right eye documented in this encounter [facility] Narrative No data available for this section [facility] Hospital Discharge instructions No data available for this section [facility] Progress note No data available for this section [facility] [employer] Summary Purpose Family History No Family History Records FoundNo Family History Records FoundNo Family History Records FoundNo Family History Records FoundNo Family History Records Found No data available for this section No Family History Records Found No data available for this section No data available for this section No Family History Records Found No data available for this section No Family History Records Found No data available for this section No Family History Records Found Advance Directives No Advanced Directives Records FoundDocuments on File Type Date Recorded Patient Historical Interpreter Expl anation ACP-Advance Directive ACP-Power of Audio Video Mechanic Latest Code Status on File Code Status Date Activated Date Inactivated Comments Full Code 01/29/2018 6:16 PM 01/30/2018 9:01 PM Documents on File Type Date Recorded Patient Historical Interpreter Expl anation ACP-Advance Directive ACP-Power of Audio Video Mechanic Latest Code Status on File Code Status Date Activated Date Inactivated Comments Full Code 01/29/2018 6:16 PM 01/30/2018 9:01 PM Latest Code Status on File Code Status Date Activated Date Inactivated Comments Full Code 08/27/2022 3:06 AM Full Code 01/29/2018 6:16 PM 01/30/2018 9:01 PM Assessments Diagnosis Nocturia Reason for Referral Status Reason Specialty Diagnoses / Procedures Referre d By Contact Referred To Contact Closed Diagnoses ASHD (arteriosclerotic heart disease) Heart palpitations Procedures Continuous cardiac monitoring, >2 up to 14 days Shaggy Irene MD [address] [place] [address] [place] [address] Additional Source Comments (unrecognized sect ion and content) No Status Records FoundNo Status Records FoundNo Status Records FoundNo Status Records FoundNo Status Records FoundNo Status Records FoundNo Status Records FoundNo Status Records FoundNo Status Records Found INFORMATION SOURCE (unrecogn ized section and content) DATE CREATED AUTHOR 02/10/2018 [facility] DATE CREATED AUTHOR AUTHOR'S ORGANIZ ATION 10/09/2018 [facility] DATE CREATED AUTHOR AUTHOR'S ORGANIZ ATION 08/28/2022 [facility] DATE CREATED AUTHOR AUTHOR'S ORGANIZ ATION 09/29/2022 [facility] DATE CREATED AUTHOR AUTHOR'S ORGANIZ ATION 07/26/2023 [facility] DATE CREATED AUTHOR AUTHOR'S ORGANIZ ATION 10/07/2024 [employer] [facility] DATE CREATED AUTHOR AUTHOR'S ORGANIZ ATION [facility]20[facility] DATE CREATED AUTHOR AUTHOR'S ORGANIZ ATION 01/13/2025 [facility] DATE CREATED AUTHOR AUTHOR'S ORGANIZ ATION 03/31/2025 [place] [facility] Reason for Visit (unrecogniz ed section and content) Status Reason Specialty Diagnoses / Procedures Referre d By Contact Referred To Contact Closed Diagnoses ASHD (arteriosclerotic heart disease) Heart palpitations Procedures Continuous cardiac monitoring, >2 up to 14 days Shaggy Irene MD [address] [place] [address] [place] [address] Reason Comments Loss of Consciousness Pt here for +LOC,, pt states he was having drinks at a friends house (3 shots of whiskey) when he lost consciousness and slumped over in his chair. When squad arrived pt was alert and oriented. Reason Comments Blurred Vision Specialty Diagnoses / Procedures Referred By Contcarmina t Referred To Contact Diagnoses Age-related nuclear cataract, left eye [H25.12] Riley Beck MD [address] [facility] [address] [place] [address] Referral ID Status Reason Start Date Expiration Date Visits Re quested Visits Authorized [id number] 07/06/2023 1 1 Specialty Diagnoses / Procedures Referred By Bong preston Referred To Contact Diagnoses Age-related nuclear cataract, right eye [H25.11] Riley Beck MD [address] [facility] [address] [place] [address] Referral ID Status Reason Start Date Expiration Date Visits Re quested Visits Authorized [id number] 07/10/2023 1 1 Scheduled Active and Recently Administ ered Medications (unrecognized section and content) Medication Order 08/25/2022 08/26/2022 08/27/2022 0.9 % sodium chloride bolus (COMPLETED) 1,000 mL, IntraVENous, at 495.9 mL/hr, Administer over 121 Minutes, ONCE, On 08/26/22 at 2330, For 1 dose 2334 (New Bag - Provider: Uniuqe Woodall RN) 0240 (Stopped - Provider: Gaviota Umanzor RN) amLODIPine (NORVASC) tablet 5 mg 5 mg, Oral, NIGHTLY, First dose (after last modification) on 08/28/22 at 2100, Until Discontinued aspirin EC tablet 81 mg 81 mg, Oral, Nightly, First dose (after last modification) on 08/27/22 at 2100, Until Discontinued 2099 (Due) atorvastatin (LIPITOR) tablet 20 mg 20 mg, Oral, NIGHTLY, First dose (after last modification) on 08/27/22 at 2100, Until Discontinued 2099 (Due) enoxaparin (LOVENOX) injection 40 mg 40 mg, SubCUTAneous, DAILY, First dose on 08/27/22 at 0900, Until Discontinued, Indication of Use: Prophylaxis-DVT/PE 926 (Not Given - Provider: Fernanda Guerra - Reason: Patient/family refused) famotidine (PEPCID) tablet 20 mg 20 mg, Oral, 2 TIMES DAILY, First dose on 08/27/22 at 0900, Until Discontinued 926 (Not Given - Provider: Fernanda Guerra - Reason: Patient/family refused)2099 (Due) levothyroxine (SYNTHROID) tablet 50 mcg 50 mcg, Oral, DAILY, First dose on 08/27/22 at 0700, Until Discontinued, Tube feeding (TF) interaction, obtain physician order to manage, recommend holding TF for 30 minutes before and after dose. 0721 (Given - Provid er: Fernanda Guerra) losartan-hydroCHLOROthiazi de (HYZAAR) 100-12.5 MG per tablet 1 tablet 1 tablet, Oral, Nightly, First dose (after last modification) on 08/27/22 at 2100, Until Discontinued 2099 (Due) metFORMIN (GLUCOPHAGE-XR) extended release tablet 500 mg 500 mg, Oral, DAILY WITH BREAKFAST, First dose on 08/27/22 at 0800, Until Discontinued, Do not crush or break. 0721 (Given - Provid er: Fernanda Guerra) sodium chloride flush 0.9 % injection 10 mL 10 mL, IntraVENous, EVERY 12 HOURS SCHEDULED (2 times per day), First dose on 08/27/22 at 0900, Until Discontinued 848 (Not Given - Provider: Fernanda Guerra - Reason: IV Fluid Infusing)2099 (Due) ticagrelor (BRILINTA) tablet 60 mg (Patient Supplied) 60 mg, Oral, 2 TIMES DAILY, First dose on 08/27/22 at 0900, Until Discontinued, ANITIPLATELET! Patient supply 906 (Not Given - Provider: Fernanda Guerra - Reason: Medication not available)2100 (Due) Continuous Medication Order 08/25/2022 08/26/2022 08/27/2022 0.9 % sodium chloride infusion IntraVENous, at 75 mL/hr, CONTINUOUS, Starting on 08/27/22 at 0330 0319 (New Bag - Prov ider: Jocelien Lindsay RN)1227 (Stopped - Provider: Fernanda Guerra) PRN Medication Order 08/25/2022 08/26/2022 08/27/2022 0.9 % sodium chloride infusion IntraVENous, at 5-250 mL/hr, PRN, if patient receiving piggyback infusions and maintenance fluids are not ordered OR KVO fluids to protect IV site / prevent frequent line interruptions/ long duration, Starting on 08/27/22 at 0306, For piggyback infusion, administer at same rate as piggyback for a total of 25 mL. Enter 25 mL into dose field and piggyback rate into rate field of order. If piggyback is infusing at a rate less than 100 mL/hr, enter 25 mL into dose field and 100 mL/hr into rate field of order. For KVO fluids, enter rate of 20 mL/hr or less into rate field of order. acetaminophen (TYLENOL) suppository 650 mg(Linked Group 1) 650 mg, Rectal, EVERY 6 HOURS PRN, Starting on 08/27/22 at 0306, Until Discontinued, Pain Mild (1-3), Fever, For temp greater than 100.4 F (38 C), Administer if oral route cannot be used. acetaminophen (TYLENOL) tablet 650 mg(Linked Group 1) 650 mg, Oral, EVERY 6 HOURS PRN, Starting on 08/27/22 at 0306, Until Discontinued, Pain Mild (1-3), Fever, For temp greater than 100.4 F (38 C), Maximum dose of acetaminophen is 4000 mg from all sources in 24 hours. ondansetron (ZOFRAN) injection 4 mg(Linked Group 2) 4 mg, IntraVENous, EVERY 6 HOURS PRN, Starting on 08/27/22 at 0306, Until Discontinued, Nausea, Vomiting, Administer if oral route cannot be used. ondansetron (ZOFRAN-ODT) disintegrating tablet 4 mg(Linked Group 2) 4 mg, Oral, EVERY 8 HOURS PRN, Starting on 08/27/22 at 0306, Until Discontinued, Nausea, Vomiting polyethylene glycol (GLYCOLAX) packet 17 g 17 g, Oral, DAILY PRN, Starting on 08/27/22 at 0306, Until Discontinued, Constipation, First line therapy for constipation sodium chloride flush 0.9 % injection 10 mL 10 mL, IntraVENous, PRN, Starting on 08/27/22 at 0306, Until Discontinued, Line Care, After every IV line use Linked Groups Order Group 1: acetaminophen (TYLENOL) tablet 650 mgJump to med 650 mg, Oral, EVERY 6 HOURS PRN, Starting on 08/27/22 at 0306, Until Discontinued, Pain Mild (1-3), Fever, For temp greater than 100.4 F (38 C)
Maximum dose of acetaminophen is 4000 mg from all sources in 24 hours.
Or acetaminophen (TYLENOL) suppository 650 mgJump to med 650 mg, Rectal, EVERY 6 HOURS PRN, Starting on Sun08/27/22 at 0306, Until Discontinued, Pain Mild (1-3), Fever, For temp greater than 100.4 F (38 C)
Administer if oral route cannot be used.
Group 2: ondansetron (ZOFRAN-ODT) disintegrating tablet 4 mgJump to med 4 mg, Oral, EVERY 8 HOURS PRN, Starting on 08/27/22 at 0306, Until Discontinued, Nausea, Vomiting Or ondansetron (ZOFRAN) injection 4 mgJump to med 4 mg, IntraVENous, EVERY 6 HOURS PRN, Starting on 08/27/22 at 0306, Until Discontinued, Nausea, Vomiting
Administer if oral route cannot be used.
Scheduled Medication Order 07/14/2023 07/15/2023 07/16/2023 apraclonidine (IOPIDINE) 1 % ophthalmic solution 1 drop (COMPLETED) 1 drop, Left Eye, ONCE, 1 dose, On Sun07/16/23 at 0830, Administer post-Procedure, while in operating room, Intra-op/Intra-Proc 0838 (Given - Provid er: Mimi Estrada RN) BUPivacaine (PF) (MARCAINE) 0.75 % injection 1 drop (COMPLETED) 1 drop, Left Eye, EVERY 5 MINUTES, 3 doses, First dose on Sun07/16/23 at 0800, Last dose on Sun07/16/23 at 0810, Within 15 minutes of surgery, Pre-op/Pre-Proc 0746 (Given - Provid er: Aparna Ocampo LPN)0748 (Given - Provider: Aparna Ocampo LPN)0752 (Given - Provider: Aparna Ocampo LPN) cefazolin intraocular/intracameral 1 mg/0.1 mL (COMPLETED) 0.1 mL, Left Eye Intraocular, ONCE, 1 dose, On Sun07/16/23 at 0830, Intra-op/Intra-Proc 0838 (Given - Provid er: Mimi Estrada RN) ketorolac (ACULAR) 0.5 % ophthalmic solution 1 drop (COMPLETED) 1 drop, Left Eye, ONCE, 1 dose, On Sun07/16/23 at 0830, Administer post-Procedure, while in operating room Instructions for home use: ONE drop in operative eye, two times a day while awake, Intra-op/Intra-Proc 0838 (Given - Provid er: Mimi Estrada RN) Lidocaine 1% (PF) (XYLOCAINE MPF) 1 % injection 1 mL (COMPLETED) 1 mL, Left Eye Intracameral, ONCE, 1 dose, On Sun07/16/23 at 0830, Intra-op/Intra-Proc 0838 (Given - Provid er: Mimi Estrada RN) ofloxacin (OCUFLOX) 0.3 % ophthalmic solution 1 drop (COMPLETED) 1 drop, Left Eye, ONCE, 1 dose, On Sun07/16/23 at 0830, Administer post-Procedure, while in operating room. Instructions for home use: ONE drop in operative eye, four times a day while awake., Intra-op/Intra-Proc 0746 (Given - Provid er: Aparna Ocampo LPN) prednisoLONE acetate (PRED FORTE) 1 % ophthalmic suspension 1 drop (COMPLETED) 1 drop, Left Eye, ONCE, 1 dose, On Sun07/16/23 at 0830, Administer post-Procedure, while in operating room Instructions for home use: ONE drop in operative eye, four times a day while awake, Intra-op/Intra-Proc 0838 (Given - Provid er: Mimi Estrada RN) tropicamide-1% cyclopentolate-1% phenylephrine-2.5% ketorolac 0.4% proparacaine 0.1% topical ophthalmic soln 0.1 mL (COMPLETED) 0.1 mL (2 drop), Left Eye, ONCE, 1 dose, On Sun07/16/23 at 0800, Within one hour of surgery., Pre-op/Pre-Proc 0746 (Given - Provid er: Aparna Ocampo LPN) Continuous Medication Order 07/14/2023 07/15/2023 07/16/2023 Sodium chloride 0.9% IV solution Intravenous, at 20 mL/hr, CONTINUOUS, Starting on Sun07/16/23 at 0800, Until Sun07/16/23 at 1548, To KVO, Pre-op/Pre-Proc 0756 ($$New Bag$$ - Provider: Aparna Ocampo LPN)0856 (Stopped - Provider: Terri Rios RN) PRN Medication Order 07/14/2023 07/15/2023 07/16/2023 acetaminophen (TYLENOL) tablet 500-1,000 mg 500-1,000 mg, Oral, EVERY 6 HOURS NEEDED, Starting on Sun07/16/23 at 0830, Until Sun07/16/23 at 1548, Pain, Post-op/Post-Proc Promethazine HCl (PHENERGAN) tablet 12.5 mg 12.5 mg, Oral, EVERY 6 HOURS NEEDED, Starting on Sun07/16/23 at 0830, Until Sun07/16/23 at 1548, Other, mild nausea, moderate nausea., Post-op/Post-Proc Promethazine HCl (PHENERGAN) tablet 25 mg 25 mg, Oral, EVERY 6 HOURS NEEDED, Starting on Sun07/16/23 at 0830, Until Sun07/16/23 at 1548, severe nausea, Post-op/Post-Proc Scheduled Medication Order 07/21/2023 07/22/2023 07/23/2023 apraclonidine (IOPIDINE) 1 % ophthalmic solution 1 drop (COMPLETED) 1 drop, Right Eye, ONCE, 1 dose, On Sun07/23/23 at 0730, Administer post-Procedure, while in operating room, Intra-op/Intra-Proc 0730 (Due)0735 (Give n - Provider: Ana Laura Ludwig RN) BUPivacaine (PF) (MARCAINE) 0.75 % injection 1 drop (COMPLETED) 1 drop, Right Eye, EVERY 5 MINUTES, 3 doses, First dose on Sun07/23/23 at 0630, Last dose on Sun07/23/23 at 0640, Within 15 minutes of surgery, Pre-op/Pre-Proc 0633 (Given - Provid er: Aparna Ocampo LPN)0635 (Given - Provider: Aparna Ocampo LPN)0638 (Given - Provider: Aparna Ocampo LPN) cefazolin intraocular/intracameral 1 mg/0.1 mL 0.1 mL, Right Eye Intraocular, ONCE, 1 dose, On Sun07/23/23 at 0730, Intra-op/Intra-Proc 0730 (Canceled Entry - Provider: System Discharge - Comment: Automatically canceled at discontinue of medication order) ketorolac (ACULAR) 0.5 % ophthalmic solution 1 drop (COMPLETED) 1 drop, Right Eye, ONCE, 1 dose, On Sun07/23/23 at 0730, Administer post-Procedure, while in operating room Instructions for home use: ONE drop in operative eye, two times a day while awake, Intra-op/Intra-Proc 0730 (Due)0736 (Give n - Provider: Ana Laura Ludwig RN) Lidocaine 1% (PF) (XYLOCAINE MPF) 1 % injection 1 mL (COMPLETED) 1 mL, Right Eye Intracameral, ONCE, 1 dose, On Sun07/23/23 at 0730, Intra-op/Intra-Proc 0730 (Due)0736 (Give n - Provider: Riley Beck MD - Comment: placed on sterile field for use during the case) ofloxacin (OCUFLOX) 0.3 % ophthalmic solution 1 drop (COMPLETED) 1 drop, Right Eye, ONCE, 1 dose, On Sun07/23/23 at 0730, Administer post-Procedure, while in operating room. Instructions for home use: ONE drop in operative eye, four times a day while awake., Intra-op/Intra-Proc 0633 (Given - Provid er: Aparna Ocampo LPN) prednisoLONE acetate (PRED FORTE) 1 % ophthalmic suspension 1 drop (COMPLETED) 1 drop, Right Eye, ONCE, 1 dose, On Sun07/23/23 at 0730, Administer post-Procedure, while in operating room Instructions for home use: ONE drop in operative eye, four times a day while awake, Intra-op/Intra-Proc 0730 (Due)0736 (Give n - Provider: Ana Laura Ludwig RN) tropicamide-1% cyclopentolate-1% phenylephrine-2.5% ketorolac 0.4% proparacaine 0.1% topical ophthalmic soln 0.1 mL (COMPLETED) 0.1 mL (2 drop), Right Eye, ONCE, 1 dose, On Sun07/23/23 at 0630, Within one hour of surgery., Pre-op/Pre-Proc 0633 (Given - Provid er: Aparna Ocampo LPN) Continuous Medication Order 07/21/2023 07/22/2023 07/23/2023 Sodium chloride 0.9% IV solution Intravenous, at 20 mL/hr, CONTINUOUS, Starting on Sun07/23/23 at 0630, Until Sun07/23/23 at 1012, To KVO, Pre-op/Pre-Proc 0631 ($$New Bag$$ - Provider: Aparna Ocampo LPN)0749 (Stopped - Provider: Simi Woods RN) PRN Medication Order 07/21/2023 07/22/2023 07/23/2023 acetaminophen (TYLENOL) tablet 500-1,000 mg 500-1,000 mg, Oral, EVERY 6 HOURS NEEDED, Starting on Sun07/23/23 at 0730, Until Sun07/23/23 at 1012, Pain, Post-op/Post-Proc Promethazine HCl (PHENERGAN) tablet 12.5 mg 12.5 mg, Oral, EVERY 6 HOURS NEEDED, Starting on Sun07/23/23 at 0730, Until Sun07/23/23 at 1012, Other, mild nausea, moderate nausea, Post-op/Post-Proc Promethazine HCl (PHENERGAN) tablet 25 mg 25 mg, Oral, EVERY 6 HOURS NEEDED, Starting on Sun07/23/23 at 0730, Until Sun07/23/23 at 1012, severe nausea, Post-op/Post-Proc Care Teams (unrecognized sec tion and content) Fagoter Relationship Specialty Start Date End Date Robyn Bragg MD [address] [facility], [facility] [place] [address] PCP - General 11/14/11 Fagoter Relationship Specialty Start Date End Date Robyn Bragg MD [address] [place] [address] [place] [address] PCP - General Internal Medicine 07/16/23 Fagoter Relationship Specialty Start Date End Date Robyn Bragg MD [address] [place] [address] [place] [address] PCP - General Internal Medicine 07/16/23 FOR RECORDS PERTAINING TO PATIENTS WHO ARE OR HAVE BEEN ENROLLED IN A CHEMICAL DEPENDENCY/SUBSTANCEABUSE PROGRAM, SOME INFORMATION MAY BE OMITTED. This clinical summary was aggregated from multiple sources. Caution should be exercised in using it in the provision of clinical care. This summary normalizes information from multiple sources, and as a consequence, information in this document may materially change the coding, format and clinical context of patient data. In addition, data may be omitted in some cases. CLINICAL DECISIONS SHOULD BE BASED ON THE PRIMARY CLINICAL RECORDS. [employer] provides no warranty or guarantee of the accuracy or completeness of information in this document.
--- NOTE | 2025-04-08 09:41 | US_ITS ---
The [address] [address] Patient Name: MARK GALVEZ MRN: [id number] date: 1955 Sex: M Assigned Patient Location: ER Current Patient Location: ER Accession/Order Number: [id number] Exam Date: 04/08/2025 10:32 Report Date: 04/08/2025 10:35 At the request of: BROOKE VILLAFUERTE MD Procedure: US scrotum EXAMINATION TYPE: US scrotum grayscale, color Doppler, waveform duplex analysis was performed. DATE OF EXAM ORDERED: 04/08/2025 10:06 AM HISTORY: right testicular pain, right groin pain COMPARISON: NONE TECHNIQUE: Realtime imaging of the scrotum was performed. Corbett scale, color Doppler and spectral Doppler imaging of the testicles was performed. FINDINGS: Testicles: Both testicles demonstrate homogeneous echotexture without intratesticular filling defect. Right measurements: 4.7 x 2.4 x 3.0 cm Left measurements: 4.5 x 2.0 x 2.9 cm Epididymis: The bilateral epididymides demonstrate normal echogenicity without focal lesion. Right measurements: 5 mm Left measurements: 9 mm Hydrocele: Small bilateral hydroceles are noted. Doppler ultrasound of the testicles: Arterial and venous waveforms are seen within both testicles. No sonographic evidence of testicular ischemia. US/US scrotum IMPRESSION: 1. The testicles are normal in size and echogenicity. No intratesticular lesions. 2. No sonographic evidence of testicular ischemia. 3. Small bilateral hydroceles are noted. 4. No evidence of inguinal hernia. Impression dictated by: Stu Lehman M.D. 04/08/2025 10:35 AM Dictation Location: [place] [address] Electronically authenticated by: [id number] Y Date: 04/08/2025 10:35
--- NOTE | 2025-04-08 09:41 | ED.GENADUL1 ---
HPI HPI - General Adult General Chief complaint: Abdominal Pain Stated complaint: RT SIDE GROIN PAIN Time Seen by Provider: 04/08/25 09:24 Source: patient Mode of arrival: walk-in Limitations: physical limitation History of Present Illness HPI narrative: The patient have a history of multiple urologic issues including the fact that he had a penile clamp to be applied for incontinence, is coming to the ER when he was trying to stand up today and he thought he is going to trip all of a sudden after that he started having right groin pain. Mentioned that the pain is positional mostly comes whenever he tried to stand up straight and also when moving his right hip. The patient did not actually have a fall he denies any pain in his testicles he denies any nausea vomiting or any other concerns He was trying to get into his urologist office when he could not get in and he came to the ER Related Data Home Medications ?Medication ?Instructions ?Recorded ?Confirmed amlodipine 2.5 mg tablet 2.5 mg PO DAILY 10/31/24 04/08/25 aspirin 81 mg capsule 81 mg PO DAILY 10/31/24 04/08/25 atorvastatin 20 mg tablet 20 mg PO DAILY 10/31/24 04/08/25 levothyroxine 100 mcg capsule 100 mcg PO DAILY 10/31/24 04/08/25 losartan 100 1.5 tab PO DAILY 10/31/24 04/08/25 mg-hydrochlorothiazide 12.5 mg tablet metformin 500 mg tablet,extended 500 mg PO DAILY 10/31/24 04/08/25 release 24 hr mirabegron 50 mg tablet,extended 50 mg PO DAILY 10/31/24 04/08/25 release 24 hr ticagrelor 60 mg tablet (Brilinta) 60 mg PO BID 10/31/24 04/08/25 Previous Rx's ?Medication ?Instructions ?Recorded meloxicam 7.5 mg tablet 7.5 mg PO DAILY PRN pain #5 tabs 04/08/25 tramadol 50 mg tablet 50 mg PO Q12H PRN pain 3 days #6 04/08/25 tabs Allergies Allergy/AdvReac Type Severity Reaction Status Date / Time No Known Drug Allergies Allergy Verified 04/08/25 09:19 Opioid HPI Opioid Management Most Recent Opioid Data: Last Pain Scale 2 Today, 11:12 Last OCT Pain Assessment Today, 10:22 Review of Systems ROS Status of ROS 10 or more systems reviewed and unremarkable except as noted in history and below [facility] Medical History (Updated 04/08/25 @ 11:26 by Amita Crawford MD) Diabetes ?E11.9 - Type 2 diabetes mellitus without complications (ICD-10) Hypertension ?I10 - Essential (primary) hypertension (ICD-10) High cholesterol ?E78.00 - Pure hypercholesterolemia, unspecified (ICD-10) Hypothyroidism ?E03.9 - Hypothyroidism, unspecified (ICD-10) UTI (urinary tract infection) ?N39.0 - Urinary tract infection, site not specified (ICD-10) Prostate cancer ?C61 - Malignant neoplasm of prostate (ICD-10) Myocardial infarction ?I21.9 - Acute myocardial infarction, unspecified (ICD-10) Incontinence without sensory awareness ?N39.42 - Incontinence without sensory awareness (ICD-10) Surgical History (Updated 10/31/24 @ 13:42 by Talia Lerner RN) History of colonoscopy ?Z98.890 - Other specified postprocedural states (ICD-10) History of prostatectomy ?Z90.79 - Acquired absence of other genital organ(s) (ICD-10) History of heart artery stent ?Z95.5 - Presence of coronary angioplasty implant and graft (ICD-10) Family History (Updated 10/31/24 @ 13:46 by Talia Lerner, BRODIE) Other Arthritis Epilepsy Family history of stroke Kidney disease Social History (Updated 04/08/25 @ 09:24 by Gaviota Levi RN) Within the past year, how often did you have a drink containing alcohol: monthly or less Smoking status: Current some day smoker Nicotine containing products detail: cigars Second hand tobacco smoke exposure: No Non-prescribed substance use: denies use Previous occupational history: retired Highest level of school completed/degree received: high school graduate Little interest or pleasure in doing things: not at all Feeling down, depressed, or hopeless: not at all Exam Narrative Exam Narrative: Nurses notes and vital signs reviewed and patient is not hypoxic. General: Well-appearing and in no apparent distress. Skin: Warm, dry, no pallor noted. No rash. Head: Normocephalic, atraumatic. Cardiovascular: Regular Rate and Rhythm without murmur, gallop or rub. Respiratory: No accessory muscle use or respiratory distress. Lungs are clear to auscultation, no wheezing, rales or rhonchi Chest Wall: no tenderness Back: No midline thoracic or lumbar vertebral tenderness. No CVA tenderness Musculoskeletal: normal ROM, no calf or popliteal tenderness, no lower extremity edema/swelling GI: Abdomen is soft, non-distended. Normal bowel sounds. No masses appreciated. No tenderness to palpation. No rebound, guarding, or rigidity noted. The patient have no right lower quadrant tenderness on groin examination which was done with the presence of the caring nurse Patient have no right groin tenderness and the patient had no indirect inguinal hernia that examination was done when the patient was standing with the patient coughing as well. There was no testicular tenderness and the patient although he mentioned that the pain sometimes radiate to the groin and the testicles it is not continuous or induced with palpation No penile discharge no other concerns Neurological: A&O x4. No cranial nerve dysfunction observed. No truncal ataxia. Constitutional Vital Signs, click to edit/add: Last Vital Signs Temp 98.3 F 04/08/25 09:09 Pulse 60 04/08/25 11:12 Resp 14 04/08/25 11:12 BP 144/80 H 04/08/25 11:12 Pulse Ox 97 04/08/25 11:12 O2 Del Method Room Air 04/08/25 11:12 Course Vital Signs Vital signs: Vital Signs Temperature 98.3 F 04/08/25 09:09 Pulse Rate 82 04/08/25 09:09 Respiratory Rate 16 04/08/25 09:09 Blood Pressure 140/87 04/08/25 09:09 Pulse Oximetry 97 04/08/25 09:09 Oxygen Delivery Method Room Air 04/08/25 09:09 Temperature 98.3 F 04/08/25 09:09 Pulse Rate 60 04/08/25 11:12 Respiratory Rate 14 04/08/25 11:12 Blood Pressure 144/80 H 04/08/25 11:12 Pulse Oximetry 97 04/08/25 11:12 Oxygen Delivery Method Room Air 04/08/25 11:12 Medical Decision Making MDM Narrative Medical decision making narrative: The patient presentation was mostly musculoskeletal specially that the patient pain could not be induced with palpation only with movement basically when he moves his right hip as abduction The patient ultrasound of the testicles showed no acute pathology And the patient also had a CBC and chemistry that showed no acute pathology The patient pain was better after being treated with Toradol and he does take ibuprofen at home which I did advise him again that I provide him with Mobic for the next 5 days only with tramadol for pain The patient to come back to the ER in case of new symptoms or concern right now the pain is muscular but in case of worsening the patient to come back to the ER The patient is to follow up with primary care physician in next 2-3 days or to return to the emergency department should any of the signs or symptoms worsen or new symptoms develop. The patient agrees with the following Diagnosis and Treatment plan and the patient will be discharged home. Lab Data Labs: Lab Results 04/08/25 04/08/25 Range/Units 10:06 10:21 WBC 6.2 (4.0-11.0) 10^3/uL RBC 4.65 L (4.70-6.10) 10^6/uL Hgb 14.9 (14.0-18.0) g/dL Hct 41.5 L (42.0-54.0) % MCV 89.2 (80.0-94.0) fL MCH 32.0 (25.9-34.0) pg MCHC 35.9 H (29.9-35.2) g/dL RDW 12.6 (11.0-15.0) % Plt Count 222 (150-450) 10^3/uL MPV 10.6 (9.5-13.5) fL Neut % (Auto) 80.1 H (43.0-75.0) % Lymph % (Auto) 11.6 L (20.5-60.0) % [place] % (Auto) 5.6 (1.7-12.0) % Eos % (Auto) 1.4 (0.9-7.0) % Baso % (Auto) 1.0 (0.2-2.0) % Neut # (Auto) 5.0 (1.4-6.5) 10^3/uL Lymph # (Auto) 0.7 L (1.2-3.8) 10^3/uL [place] # (Auto) 0.4 (0.3-0.8) 10^3/uL Eos # (Auto) 0.1 (0.0-0.7) 10^3/uL Baso # (Auto) 0.1 (0.0-0.1) 10^3/uL Abs Immat Gran (auto) 0.02 (0.00-0.03) 10^3/uL Imm/Tot Granulo (auto) 0.3 (0.0-0.5) % Sodium 141 (136-145) mmol/L Potassium 3.8 (3.5-5.1) mmol/L Chloride 106 (98-107) mmol/L Carbon Dioxide 25.6 (21.0-32.0) mmol/L Anion Gap 13.2 BUN 21.0 H (7.0-18.0) mg/dL Creatinine 1.21 (0.70-1.30) mg/dL Est GFR ( Amer) >60 (>=60 mL/min/1.73m^2) Est GFR (Non-Af Amer) 59 L (>=60 mL/min/1.73m^2) BUN/Creatinine Ratio 17.4 Glucose 154 H (74-106) mg/dL Calcium 8.8 (8.5-10.1) mg/dL Total Bilirubin 0.6 (0.2-1.0) mg/dL AST 14 L (15-37) U/L ALT 24 (16-63) U/L Alkaline Phosphatase 75 (46-116) U/L Total Protein 7.0 (6.4-8.2) g/dL Albumin 3.3 L (3.4-5.0) g/dL Globulin 3.7 g/dL Albumin/Globulin Ratio 0.9 Urine Color Lt. yellow (YELLOW) Urine Clarity Clear (CLEAR) Urine pH 7.5 (5.0-9.0) Ur Specific [place] 1.010 (1.005-1.025) Urine Protein Negative (NEG/TRACE) mg/dL Urine Glucose (UA) Negative (NEGATIVE) mg/dL Urine Ketones Negative (NEGATIVE) mg/dL Urine Occult Blood Negative (NEGATIVE) Urine Nitrite Negative (NEGATIVE) Urine Bilirubin Negative (NEGATIVE) Urine Urobilinogen 0.2 (0.2-1.0) EU/dL Ur Leukocyte Esterase Negative (NEGATIVE) Discharge Plan Discharge Chief Complaint: Abdominal Pain Clinical Impression: Groin pain Patient Disposition: Home, Self-Care Time of Disposition Decision: 11:26 Condition: Good Prescriptions / Home Meds: New meloxicam 7.5 mg tablet 7.5 mg PO DAILY PRN (Reason: pain) Qty: 5 0RF tramadol 50 mg tablet 50 mg PO Q12H PRN (Reason: pain) 3 Days Qty: 6 0RF No Action amlodipine 2.5 mg tablet 2.5 mg PO DAILY aspirin 81 mg capsule 81 mg PO DAILY atorvastatin 20 mg tablet 20 mg PO DAILY losartan-hydrochlorothiazide 100-12.5 mg tablet 1.5 tab PO DAILY levothyroxine 100 mcg capsule 100 mcg PO DAILY metformin 500 mg tablet extended release 24 hr 500 mg PO DAILY mirabegron 50 mg tablet extended release 24 hr 50 mg PO DAILY ticagrelor [Brilinta] 60 mg tablet 60 mg PO BID Print Language: Macanese Instructions: Groin Pain (ED) Referrals: ROBYN BRAGG [Primary Care Provider, Family Practice] - 1 week Discharge Date/Time: 04/08/25 11:40
[2025-04-08] MEDS: KETOROLAC TROMETHAMINE 30 MG/ML VIAL IM (10:22)
[2025-04-08 10:27] VITALS: BP 143/77; PULSE 65; O2SAT 96
[2025-04-08 10:27] LABS: Hematocrit 41.5 % (42.0-54.0); Hemoglobin 14.9 g/dL (14.0-18.0); Immature Granulocytes Abs Auto 0.02 10^3/uL (0.00-0.03); Immature Granulocytes Pct Auto 0.3 % (0.0-0.5); Lymphocytes Absolute Auto 0.7 10^3/uL (1.2-3.8); Mean Corpuscular HGB Conc 35.9 g/dL (29.9-35.2); Mean Corpuscular Hemoglobin 32.0 pg (25.9-34.0); Mean Corpuscular Volume 89.2 fL (80.0-94.0); Platelet Count 222 10^3/uL (150-450); Red Blood Count 4.65 10^6/uL (4.70-6.10); White Blood Count 6.2 10^3/uL (4.0-11.0)
[2025-04-08 10:29] LABS: Glucose Urine UA NEGATIVE (NEGATIVE)
[2025-04-08 10:44] LABS: Alanine Aminotransferase 24 U/L (16-63); Albumin Globulin Ratio 0.9; Albumin Level 3.3 g/dL (3.4-5.0); Alkaline Phosphatase 75 U/L (46-116); Anion Gap 13.2; Aspartate Amino Transferase 14 U/L (15-37); Blood Urea Nitrogen 21.0 mg/dL (7.0-18.0); Calcium 8.8 mg/dL (8.5-10.1); Carbon Dioxide 25.6 mmol/L (21.0-32.0); Chloride 106 mmol/L (98-107); Estimated GFR (African America >60 (>=60 mL/min/1.73m^2); Estimated GFR (Non-African Ame 59 (>=60 mL/min/1.73m^2); Globulin 3.7 g/dL; Glucose 154 mg/dL (74-106); Potassium 3.8 mmol/L (3.5-5.1); Sodium 141 mmol/L (136-145); Total Protein 7.0 g/dL (6.4-8.2)
[2025-04-08 11:12] VITALS: BP 144/80; PULSE 60; O2SAT 97
== END 2025-04-08 11:40 | disposition home or self-care (01) ==
PROVIDERS: Emergency Provider Emergency Medicine; PCP Internal Medicine
DX: R10.31 Right lower quadrant pain (principal); Z90.79 Acquired absence of other genital organ(s); Z95.5 Presence of coronary angioplasty implant and graft; F17.290 Nicotine dependence, other tobacco product, uncomplicated
CPT/HCPCS: 36415; 76870; 80053; 81003; 85025; 96372; 99284; J1885